=== PATIENT | male | born 1960 | race Caucasian/White ===

== ENCOUNTER 2018-07-24 12:39 | Inpatient (IN) ==
[2018-07-24 13:45] LABS: Baso # (Auto) 0.1 th/mm3 (0.0-0.2); Baso % (Auto) 0.4 % (0.0-2.0); Eos # (Auto) 0.1 th/mm3 (0.0-0.4); Eos % (Auto) 0.3 % (0.0-4.0); Hematocrit 46.1 % (39.0-51.0); Hemoglobin 15.2 gm/dL (13.0-17.0); Lymph # (Auto) 1.8 th/mm3 (1.0-4.8); Lymph % (Auto) 8.5 % (9.0-44.0); Mean Corpuscular Hemoglobin 26.3 pg (27.0-34.0); Mean Corpuscular Volume 79.9 fL (80.0-100.0); Mean Platelet Volume 7.8 fL (7.0-11.0); Mono # (Auto) 1.8 th/mm3 (0.0-0.9); Mono % (Auto) 8.5 % (0.0-8.0); Neut # (Auto) 17.7 th/mm3 (1.8-7.7); Neut % (Auto) 82.3 % (16.0-70.0); Platelet Count 299 th/mm3 (150-450); Red Blood Count 5.77 mil/mm3 (4.50-5.90); Red Cell Distribution Width 16.8 % (11.6-17.2); White Blood Count 21.5 th/mm3 (4.0-11.0)
[2018-07-24 14:04] LABS: Alanine Aminotransferase 21 U/L (12-78); Alkaline Phosphatase 101 U/L (45-117); Anion Gap 7 meq/L (5-15); Aspartate Aminotransferase 12 U/L (15-37); Blood Urea Nitrogen 25 mg/dL (7-18); Calcium 10.1 mg/dL (8.5-10.1); Carbon Dioxide 26.2 meq/L (21.0-32.0); Chloride 99 meq/L (98-107); Glomerular Filtration Rate 52 mL/min (>89); Glucose,Random 153 mg/dL (74-106); Lipase 34 U/L (73-393); Potassium 4.5 meq/L (3.5-5.1); Sodium 132 meq/L (136-145); Total Protein 8.6 g/dL (6.4-8.2)
[2018-07-24] MEDS ORDERED: Piperacil/Tazo 3.375 GM Premix 50 ML IV.SIG ONE (14:13)
[2018-07-24] MEDS ORDERED: Sod Chloride 0.9% Inj 1,000 ML IV.SIG SCH ×2 (14:15)
[2018-07-24] MEDS ORDERED: Morphine Inj 4 MG/ML Vial IV.PUSH ONE (14:16)
--- NOTE | 2018-07-24 14:37 | ED ---
HPI General Chief Complaint: Abdominal Pain Stated Complaint: Chest/Oxygen Complaint Doctor Sent Time Seen by Provider: 07/24/18 14:02 Source: patient Mode of arrival: ambulatory Limitations: no limitations History of Present Illness HPI narrative: 57-year-old male with a history of anxiety, hypertension presents to the emergency department evaluation of worsening right upper quadrant pain. Patient says that he presented here to [place] 2 days ago for abdominal pain but says that the pain is persistent. He says the pain has been persistent for a couple of days. Today, he went to Dr. Jones, a primary care physician, who recommended he come in today for evaluation. Patient points to the right upper quadrant and states that the pain is 10/10, intermittent, worse with moving and eating. Patient says he has had a decreased appetite because he does not want to have pain. He denies fevers or chills. Says he has nausea with occasional vomiting. He denies history of cardiac, pulmonary issues. Patient does not use blood thinners and does not take aspirin daily. Related Data Home Medications Medication Instructions Recorded Confirmed alprazolam [Xanax] 2 mg PO BID 07/24/18 07/24/18 quetiapine [Seroquel] 200 mg PO HS 07/24/18 07/25/18 lamotrigine [Lamictal] 100 mg PO DAILY 07/25/18 07/25/18 lisinopril 20 mg PO DAILY 07/25/18 07/25/18 Allergies Allergy/AdvReac Type Severity Reaction Status Date / Time No Known Allergies Allergy Verified 07/22/18 05:01 Review of Systems ROS: all other systems reviewed are negative [facility] Medical History Medical History Anxiety (Acute) Hypertension (Acute) Social History Social History Substance History: Past History Second Hand Smoke Exposure: Yes Smoking Status: Current every day smoker Tobacco Type: Cigarettes How Often Do You Have a Drink Containing Alcohol: Never Recent Travel in [facility] within the Last 8 Weeks: No Recent Out of Country Travel within the Last 8 Weeks: No Immunization History Tetanus Immunization: Unsure Exam Narrative Exam Narrative: GENERAL: Well-developed, well-nourished in mild distress, anxious SKIN: Focused skin assessment warm/dry. HEAD: Atraumatic. Normocephalic. EYES: Pupils equal and round. No scleral icterus. No injection or drainage. ENT: No nasal bleeding or discharge. Mucous membranes pink and moist. NECK: Trachea midline. No JVD. No lymphadenopathy CARDIOVASCULAR: Regular rate and rhythm. No murmur appreciated. RESPIRATORY: No accessory muscle use. Clear to auscultation. Breath sounds equal bilaterally. GASTROINTESTINAL: Abdomen protuberant, soft, nondistended, tenderness to palpation of the right upper quadrant without rebound tenderness, no psoas sign. MUSCULOSKELETAL: No obvious deformities. No clubbing. No cyanosis. No edema. No tenderness palpation of the calves NEUROLOGICAL: Awake and alert. No obvious cranial nerve deficits. Motor grossly within normal limits. Normal speech. PSYCHIATRIC: Appropriate mood and affect; insight and judgment normal. Course Initial Documented Vital Signs Temperature 99.7 F H 07/24/18 12:50 Pulse Rate 124 H 07/24/18 12:50 Respiratory Rate 20 07/24/18 12:50 Blood Pressure 127/74 07/24/18 12:50 Pulse Oximetry 95 07/24/18 12:50 Last Documented Vital Signs Temperature 98.6 F 07/25/18 08:00 Pulse Rate 94 H 07/25/18 08:00 Respiratory Rate 18 07/25/18 08:00 Blood Pressure 130/79 07/25/18 04:00 Pulse Oximetry 94 L 07/25/18 04:00 Medical Decision Making BLANCA Attestation BLANCA supervised visit: Yes Attestation: I, Dr. dao, have reviewed the advance practice practitioner's documentation and am in agreement, met with the patient face to face, made the diagnosis, and the medical decision making was done by me. *My assessment and Findings: 57 y/o male presents with 2-day history of severe abdominal pain with total 1 week course. Has been n.p.o. since last night as he has been unable to eat. He was sent by his primary care physician who I personally talked with. Workup reveals acute cholecystitis. Patient has significant leukocytosis and has mild tachycardia here. Lactate and blood pressure are normal. He was given Zosyn on his arrival into the room as well as IV fluid hydration. I personally discussed the case with Dr. Fernández and he will be admitted to medicine with his consultation. Patient also was updated. MDM Narrative Medical decision making narrative: 57-year-old male presents to the emergency department for evaluation of right upper quadrant pain that is been persistent for a couple of days. He has associated nausea with occasional vomiting. Says his pain is worse with eating and movement. Vital signs demonstrate HR 116, regular. Temp 99.7, SaO2 95% on room air. Morphine for pain. Zosyn and 2L NS IVF. Labs are notable for WBC 21.5, H/H 15.2/46.1, BUN/Cr 25/1.39, Lactic 1.0, T Bili 1.7 US consistent with cholecystitis. My attending discussed this case with Dr. Fernández regarding this patient. Remain NPO, LFTs in the morning. Admitted to Dr. Seay. Spoke with Dr. Garcia regarding this patient as well who is aware of the plan. Medical Screen Exam Complete: Yes Emergency Medical Condition: Yes Differential Diagnosis Differential Diagnosis: Cholecystitis, cholelithiasis, bowel obstruction, colitis, diverticulitis Lab Data Result diagrams: 07/25/18 06:29 07/25/18 06:29 Lab Results 07/24/18 07/24/18 07/24/18 Range/Units 13:21 13:21 14:20 WBC 21.5 H (4.0-11.0) th/mm3 RBC 5.77 (4.50-5.90) mil/mm3 Hgb 15.2 (13.0-17.0) gm/dL Hct 46.1 (39.0-51.0) % MCV 79.9 L (80.0-100.0) fL MCH 26.3 L (27.0-34.0) pg MCHC 33.0 (32.0-36.0) % RDW 16.8 (11.6-17.2) % Plt Count 299 (150-450) th/mm3 MPV 7.8 (7.0-11.0) fL Neut % (Auto) 82.3 H (16.0-70.0) % Lymph % (Auto) 8.5 L (9.0-44.0) % [place] % (Auto) 8.5 H (0.0-8.0) % Eos % (Auto) 0.3 (0.0-4.0) % Baso % (Auto) 0.4 (0.0-2.0) % Neut # (Auto) 17.7 H (1.8-7.7) th/mm3 Lymph # (Auto) 1.8 (1.0-4.8) th/mm3 [place] # (Auto) 1.8 H (0.0-0.9) th/mm3 Eos # (Auto) 0.1 (0.0-0.4) th/mm3 Baso # (Auto) 0.1 (0.0-0.2) th/mm3 WBC Differential . Differential Comment Auto diff final PT (9.8-11.6) sec INR Ratio APTT (24.3-30.1) sec Sodium 132 L (136-145) meq/L Potassium 4.5 (3.5-5.1) meq/L Chloride 99 (98-107) meq/L Carbon Dioxide 26.2 (21.0-32.0) meq/L Anion Gap 7 (5-15) meq/L BUN 25 H (7-18) mg/dL Creatinine 1.39 H (0.60-1.30) mg/dL Estimated GFR 52 L (>89) mL/min Random Glucose 153 H (74-106) mg/dL Lactic Acid 1.0 (0.4-2.0) mmol/L Calcium 10.1 (8.5-10.1) mg/dL Total Bilirubin 1.7 H (0.2-1.0) mg/dL AST 12 L (15-37) U/L ALT 21 (12-78) U/L Alkaline Phosphatase 101 (45-117) U/L Total Protein 8.6 H (6.4-8.2) g/dL Albumin 3.0 L (3.4-5.0) g/dL Lipase 34 L (73-393) U/L 07/24/18 07/25/18 07/25/18 Range/Units 14:20 06:29 06:29 WBC 15.8 H (4.0-11.0) th/mm3 RBC 5.11 (4.50-5.90) mil/mm3 Hgb 13.7 (13.0-17.0) gm/dL Hct 41.0 (39.0-51.0) % MCV 80.2 (80.0-100.0) fL MCH 26.8 L (27.0-34.0) pg MCHC 33.4 (32.0-36.0) % RDW 16.1 (11.6-17.2) % Plt Count 271 (150-450) th/mm3 MPV 7.5 (7.0-11.0) fL Neut % (Auto) 78.3 H (16.0-70.0) % Lymph % (Auto) 11.9 (9.0-44.0) % [place] % (Auto) 7.5 (0.0-8.0) % Eos % (Auto) 1.9 (0.0-4.0) % Baso % (Auto) 0.4 (0.0-2.0) % Neut # (Auto) 12.4 H (1.8-7.7) th/mm3 Lymph # (Auto) 1.9 (1.0-4.8) th/mm3 [place] # (Auto) 1.2 H (0.0-0.9) th/mm3 Eos # (Auto) 0.3 (0.0-0.4) th/mm3 Baso # (Auto) 0.1 (0.0-0.2) th/mm3 WBC Differential . Differential Comment Auto diff final PT 11.1 (9.8-11.6) sec INR 1.1 Ratio APTT 31.3 H (24.3-30.1) sec Sodium 135 L (136-145) meq/L Potassium 4.2 (3.5-5.1) meq/L Chloride 99 (98-107) meq/L Carbon Dioxide 30.9 (21.0-32.0) meq/L Anion Gap 5 (5-15) meq/L BUN 17 (7-18) mg/dL Creatinine 1.03 (0.60-1.30) mg/dL Estimated GFR 74 L (>89) mL/min Random Glucose 113 H (74-106) mg/dL Lactic Acid (0.4-2.0) mmol/L Calcium 9.6 (8.5-10.1) mg/dL Total Bilirubin 1.5 H (0.2-1.0) mg/dL AST 14 L (15-37) U/L ALT 21 (12-78) U/L Alkaline Phosphatase 102 (45-117) U/L Total Protein 7.8 D (6.4-8.2) g/dL Albumin 2.5 L (3.4-5.0) g/dL Lipase (73-393) U/L Imaging Data Radiologist's impression: Gallbladder Ultrasound 07/24/18 14:12 CONCLUSION: 1. There is extensive gallbladder wall thickening with pericholecystic fluid and multiple gallstones. There was a positive Peters's sign. Exam would suggest acute cholecystitis. 2. Mildly dilated common bile duct at 8 mm. Discharge Plan Discharge Disposition Patient Disposition: 30 Still Patient Discharge Condition Condition: Stable Discharge Details Diagnosis: Acute cholecystitis Physicians Team ED Provider: Crista Dao ED Midlevel Provider: Stephanie Goodwin Primary Care Provider: UNKNOWN, Attending Provider: Bucky Jimenez Other Providers: Bucky Fernández ; Jhon,[employer] Status ED Status: Left Department Discharge Information Discharge Date/Time: 07/24/18 18:18
[2018-07-24 14:56] LABS: Activated Partial Thrombo Time 31.3 sec (24.3-30.1); INR 1.1 Ratio; Prothrombin Time 11.1 sec (9.8-11.6)
--- NOTE | 2018-07-24 16:03 | US ---
EXAM DATE: 07/24/2018 3:56 PM EDT AGE/SEX: 57 years / Male INDICATIONS: Right upper quadrant pain. CLINICAL DATA: This is the patient's initial encounter. Patient reports that signs and symptoms have been present for 3 days and indicates a pain score of 10/10. MEDICAL/SURGICAL HISTORY: Hypertension. Anxiety. Appendectomy. Shoulder surgery. COMPARISON: [facility] [place]EL[place]/O CONTRAST, 07/22/2018. . MEASUREMENTS: Liver:__ 23.1 cm. Common Bile Duct:__ 10mm. FINDINGS: Liver: Increased echotexture without focal lesion or ductal dilation. Portal Vein: Hepatopedal flow seen in portal vein. Common Duct: The common bile duct is mildly dilated at 8 mm. Gallbladder: The examination demonstrates diffuse gallbladder wall thickening with multiple gallston es and pericholecystic fluid. There is a focal area of increased echogenicity with ringdown artifact suggesting a possible small amount of air within the gallbladder wall. The examination is concerning for acute cholecystitis. Pancreas: The visualized portions are within normal limits Right Kidney: Normal echotexture and cortical thickness. No mass or hydronephrosis. Other: None. CONCLUSION: 1. There is extensive gallbladder wall thickening with pericholecystic fluid and multiple gallstones . There was a positive Peters's sign. Exam would suggest acute cholecystitis. 2. Mildly dilated common bile duct at 8 mm. Electronically signed by: Michael Coates MD 07/24/2018 4:02 PM EDT
[2018-07-24] MEDS ORDERED: Bisacodyl 10 MG Supp RECTAL PRN (16:44)
[2018-07-24] MEDS ORDERED: Acetaminophen 325 MG Tablet PO PRN (16:44)
--- NOTE | 2018-07-24 17:05 | P.HP ---
History of Present Illness Service: Hospitalist Primary Care Physician: UNKNOWN Chief Complaint: RUQ abdominal pain. History of Present Illness: Mr. Kim is a pleasant 57-year-old male with a history of hypertension, tobacco use who presents to the emergency department due to worsening right upper quadrant abdominal pain. Patient was evaluated in the emergency department 2 days prior to this admission and was subsequently discharged from the ED. He went to his primary care physician who recommended him to come back to the emergency department due to worsening abdominal pain. Patient also had associated nausea and vomiting. He also reports subjective fever and chills. Patient denies any chest pain, shortness of breath. No changes in bowel or bladder habits. Gallbladder ultrasound indicated extensive gallbladder wall thickening with pericholecystic fluid and multiple gallstones. Common bile duct was mildly dilated to 8 mm. WBC 20 1.5K, BUN 25 creatinine 1.39, lactic acid 1.0, total bilirubin 1.7. AST 12 and ALT 21. Alk phos 101. Past medical history: Hypertension Past surgical history: Appendectomy, broken leg and arm surgery. Social history: Patient smokes 1 pack a day, denies using alcohol or illicit drugs. Family history: Father had gallbladder disease as well. Inpatient Certification: I certify that the inpatient services were ordered in accordance with Medicare regulations governing the order. This includes certification that hospital inpatient services are reasonable and necessary and in the case of services not specified as inpatient-only under 42 CFR 419.22(n), that they are appropriately provided as inpatient services in accordance to with the 2-midnight benchmark under 43 CFR 412.3(e) Estimated Total Length of Stay (Days): 3 Plans for Post Hospital Care: Home Review of Systems All other systems reviewed negative except as stated in HPI PMFSH - History History Provided By: Patient - Medical History Medical History: Medical History (Last Reviewed 07/24/18 @ 14:41 by JIAN Ley) Anxiety Hypertension - Surgical History Surgical History: Surgical History (Last Reviewed 07/24/18 @ 14:07 by Dariana Vega) H/O shoulder surgery History of appendectomy - Tobacco History Second Hand Smoke Exposure: Yes Tobacco Use In Past 30 Days: Yes Smoking Status: Current every day smoker Tobacco Type: Cigarettes - Alcohol History How Often Do You Have a Drink Containing Alcohol: Never - Substance Use History Substance History: No History of Abuse - Travel History Recent Travel in the [place] Within the Last 8 Weeks: No Recent Travel Out of the Country Within the Last 8 Weeks: No - Immunization History Tetanus Immunization: Unsure Medications and Allergies Active Medications: Active Medications Acetaminophen (Tylenol) 650 mg PO Q4H PRN PRN Reason: Headache, fever, pain 1-4 Al Hydroxide/Mg Hydroxide (Milk Of Magnesia Liq) 30 ml PO Q12H PRN PRN Reason: Mild Constipation Bisacodyl (Dulcolax Supp) 10 mg RECTAL DAILY PRN PRN Reason: SEVERE CONSITIPATION Sodium Chloride (Ns Inj) 1,000 mls @ 0 mls/hr IV.SIG BOLUS ENOC Last Infusion: 07/24/18 15:31 Dose: Infused Sodium Chloride (Ns Inj) 1,000 mls @ 0 mls/hr IV.SIG BOLUS ENOC Last Admin: 07/24/18 16:04 Dose: 1,000 mls/hr Sodium Chloride (Ns Inj) 1,000 mls @ 100 mls/hr IV.CONT .Q10H ENOC Piperacillin/Tazobactam/Dextrose (Zosyn 3.375 Gm Premix) 50 mls @ 100 mls/hr IV.SIG Q6H ENOC Lactulose (Lactulose Liq) 30 ml PO DAILY PRN PRN Reason: SEVERE CONSITIPATION Ondansetron HCl (Zofran Inj) 4 mg IV.PUSH Q6H PRN PRN Reason: NAUSEA OR VOMITING Sennosides (Senokot) 17.2 mg PO Q12H PRN PRN Reason: Moderate Constipation Allergies Allergy/AdvReac Type Severity Reaction Status Date / Time No Known Allergies Allergy Verified 07/22/18 05:01 Home Medications Medication Instructions Recorded Confirmed Type Unable to Obtain Home Meds 07/22/18 07/24/18 History Exam Vital signs: Vital Signs 07/24/18 12:50 07/24/18 14:06 Temperature 99.7 F H Pulse Rate 124 H 116 H Respiratory Rate 20 20 Blood Pressure 127/74 126/76 Pulse Oximetry 95 95 Intake & Output 07/23/18 07/24/18 07/24/18 18:59 06:59 18:59 Intake Total 1050 / 1050 Balance 1050 / 1050 Weight 113.398 kg Intake: IV 1050 / 1050 Zosyn 3.375 GM Premix 50 ML @ 50 / 50 100 mls/hr IV.SIG ONCE ONE Rx#: [id number] NS Inj 1,000 ML @ Wide Open IV. 1000 / 1000 SIG BOLUS ENOC Rx#:[id number] Narrative: GENERAL: This is a well-nourished, well-developed patient, in no apparent distress. SKIN: No rashes, ecchymoses or lesions. Warm and dry. HEAD: Atraumatic. Normocephalic. No temporal or scalp tenderness. EYES: Pupils equal round and reactive. No injection or drainage. Nonicteric sclera. ENT: Nose without bleeding, purulent drainage or septal hematoma. Airway patent. NECK: Trachea midline. No lymphadenopathy. Supple, nontender, no meningeal signs. CARDIOVASCULAR: Regular rhythm, tachycardic without murmurs, gallops, or rubs. No JVD. RESPIRATORY: Clear to auscultation. Breath sounds equal bilaterally. No wheezes , rales, or rhonchi. GASTROINTESTINAL: Abdomen soft, tender to palpation in the right upper quadrant area. MUSCULOSKELETAL: Extremities without clubbing, cyanosis, or edema. NEUROLOGICAL: Awake and alert. Cranial nerves II through XII intact. No focal neurological deficits. Normal speech. Results - Labs CBC & Chem 7: 07/24/18 13:21 07/24/18 13:21 Labs: Laboratory Results - last 24 hr 07/24/18 07/24/18 07/24/18 13:21 13:21 14:20 WBC 21.5 H RBC 5.77 Hgb 15.2 Hct 46.1 MCV 79.9 L MCH 26.3 L MCHC 33.0 RDW 16.8 Plt Count 299 MPV 7.8 Neut % (Auto) 82.3 H Lymph % (Auto) 8.5 L [place] % (Auto) 8.5 H Eos % (Auto) 0.3 Baso % (Auto) 0.4 Neut # (Auto) 17.7 H Lymph # (Auto) 1.8 [place] # (Auto) 1.8 H Eos # (Auto) 0.1 Baso # (Auto) 0.1 WBC Differential . Differential Comment Auto diff final PT INR APTT Sodium 132 L Potassium 4.5 Chloride 99 Carbon Dioxide 26.2 Anion Gap 7 BUN 25 H Creatinine 1.39 H Estimated GFR 52 L Random Glucose 153 H Lactic Acid 1.0 Calcium 10.1 Total Bilirubin 1.7 H AST 12 L ALT 21 Alkaline Phosphatase 101 Total Protein 8.6 H Albumin 3.0 L Lipase 34 L 07/24/18 14:20 WBC RBC Hgb Hct MCV MCH MCHC RDW Plt Count MPV Neut % (Auto) Lymph % (Auto) [place] % (Auto) Eos % (Auto) Baso % (Auto) Neut # (Auto) Lymph # (Auto) [place] # (Auto) Eos # (Auto) Baso # (Auto) WBC Differential Differential Comment PT 11.1 INR 1.1 APTT 31.3 H Sodium Potassium Chloride Carbon Dioxide Anion Gap BUN Creatinine Estimated GFR Random Glucose Lactic Acid Calcium Total Bilirubin AST ALT Alkaline Phosphatase Total Protein Albumin Lipase - Imaging Impressions Gallbladder Ultrasound 07/24/18 14:12 CONCLUSION: 1. There is extensive gallbladder wall thickening with pericholecystic fluid and multiple gallstones. There was a positive Peters's sign. Exam would suggest acute cholecystitis. 2. Mildly dilated common bile duct at 8 mm. Caprini VTE Risk Assessment Caprini VTE Risk Assessment: No/Low Risk (score <= 1) Caprini Risk Assessment Model: Point Value = 1 Point Value = 2 Point Value = 3 Point Value = 5 Age 41-60 Minor surgery BMI > 25 kg/m2 Swollen legs Varicose veins or History of unexplained or recurrent spontaneous Oral contraceptives or hormone replacement Sepsis (< 1 month) Serious lung disease, including pneumonia (< 1 month) Abnormal pulmonary function Acute myocardial infarction Congestive heart failure (< 1 month) History of inflammatory bowel disease Medical patient at bed rest Age 61-74 Arthroscopic surgery Major open surgery (> 45 min) Laparoscopic surgery (> 45 min) Malignancy Confined to bed (> 72 hours) Immobilizing plaster cast Central venous access Age >= 75 History of VTE Family history of VTE Factor V Leiden Prothrombin [id number] Lupus anticoagulant Anticardiolipin antibodies Elevated serum homocysteine Heparin-induced thrombocytopenia Other congenital or acquired thrombophilia Stroke (< 1 month) Elective arthroplasty Hip, pelvis, or leg fracture Acute spinal cord injury (< 1 month) Prophylaxis Regimen: Total Risk Factor Score Risk Level Prophylaxis Regimen 0-1 Low Early ambulation 2 Moderate Order ONE of the following: *Sequential Compression Device (SCD) *Heparin 5000 units SQ BID 3-4 Higher Order ONE of the following medications: *Heparin 5000 units SQ TID *Enoxaparin/Lovenox 40 mg SQ daily (WT < 150 kg, CrCl > 30 mL/min) *Enoxaparin/Lovenox 30 mg SQ daily (WT < 150 kg, CrCl > 10-29 mL/min) *Enoxaparin/Lovenox 30 mg SQ BID (WT < 150 kg, CrCl > 30 mL/min) AND/OR *Sequential Compression Device (SCD) 5 or more Highest Order ONE of the following medications: *Heparin 5000 units SQ TID (Preferred with Epidurals) *Enoxaparin/Lovenox 40 mg SQ daily (WT < 150 kg, CrCl > 30 mL/min) *Enoxaparin/Lovenox 30 mg SQ daily (WT < 150 kg, CrCl > 10-29 mL/min) *Enoxaparin/Lovenox 30 mg SQ BID (WT < 150 kg, CrCl > 30 mL/min) AND *Sequential Compression Device (SCD) Assessment and Plan - Plan Mr. Kim is a pleasant 57-year-old male with a history of hypertension who presents to the emergency department due to worsening right upper quadrant abdominal pain, associated nausea vomiting as well as subjective fever and chills. Gallbladder ultrasound indicates cholecystitis. Sepsis(WBC 20 1.5K, temperature 99.7F, pulse 124, respiration 20, suspected infection gallbladder) Acute cholecystitis, severe -We will start patient on Zosyn 3.375 g every 6 hours -I discussed with Dr. Fernández (General surgery), appreciate his input. -Acetaminophen, morphine IV for pain control. -Clear liquid diet for now, n.p.o. midnight. -Continue normal saline at 100 cc/h. Elevated bilirubin Mild dilation of common bile duct -We will repeat CBC and CMP in the morning. -If bilirubin increases, will consider MRCP and a GI consult. Hypertension -patient is currently normotensive. Full code. SCDs. Discussed with General surgery (Dr. Fernández).
--- NOTE | 2018-07-24 17:58 | P.CON ---
History of Present Illness Consult date: 07/24/18 Reason for Consult: Acute cholecystitis Primary Care Provider: UNKNOWN History of Present Illness: Patient is a 57-year-old male who was [facility] ago for abdominal pain. He was diagnosed with gallstones and was feeling better and was sent home. He developed excruciating pain today and was seen at his primary care office and was noted to be diaphoretic. He was worked up in the emergency department and was found to have dilated common bile duct, elevated WBCs, and gallbladder wall thickening with gallstones. [facility] - History History Provided By: Patient - Medical History Medical History: Medical History (Last Reviewed 07/24/18 @ 14:41 by JIAN Ley) Anxiety Hypertension - Surgical History Surgical History: Surgical History (Last Reviewed 07/24/18 @ 14:07 by Dariana Vega) H/O shoulder surgery History of appendectomy - Tobacco History Second Hand Smoke Exposure: Yes Tobacco Use In Past 30 Days: Yes Smoking Status: Current every day smoker Tobacco Type: Cigarettes - Alcohol History How Often Do You Have a Drink Containing Alcohol: Never - Substance Use History Substance History: No History of Abuse - Travel History Recent Travel in the [place] Within the Last 8 Weeks: No Recent Travel Out of the Country Within the Last 8 Weeks: No - Immunization History Tetanus Immunization: Unsure Medications and Allergies Active Medications: Active Medications Acetaminophen (Tylenol) 650 mg PO Q4H PRN PRN Reason: Headache, fever, pain 1-4 Al Hydroxide/Mg Hydroxide (Milk Of Magnesia Liq) 30 ml PO Q12H PRN PRN Reason: Mild Constipation Bisacodyl (Dulcolax Supp) 10 mg RECTAL DAILY PRN PRN Reason: SEVERE CONSITIPATION Sodium Chloride (Ns Inj) 1,000 mls @ 0 mls/hr IV.SIG BOLUS ENOC Last Infusion: 07/24/18 15:31 Dose: Infused Sodium Chloride (Ns Inj) 1,000 mls @ 0 mls/hr IV.SIG BOLUS ENOC Last Infusion: 07/24/18 17:04 Dose: Infused Sodium Chloride (Ns Inj) 1,000 mls @ 100 mls/hr IV.CONT .Q10H ENOC Piperacillin/Tazobactam/Dextrose (Zosyn 3.375 Gm Premix) 50 mls @ 100 mls/hr IV.SIG Q6H ENOC Lactulose (Lactulose Liq) 30 ml PO DAILY PRN PRN Reason: SEVERE CONSITIPATION Ondansetron HCl (Zofran Inj) 4 mg IV.PUSH Q6H PRN PRN Reason: NAUSEA OR VOMITING Sennosides (Senokot) 17.2 mg PO Q12H PRN PRN Reason: Moderate Constipation Allergies Allergy/AdvReac Type Severity Reaction Status Date / Time No Known Allergies Allergy Verified 07/22/18 05:01 Home Medications Medication Instructions Recorded Confirmed Type Unable to Obtain Home Meds 07/22/18 07/24/18 History Physical Exam Vital signs: Vital Signs 07/24/18 12:50 07/24/18 14:06 Temperature 99.7 F H Pulse Rate 124 H 116 H Respiratory Rate 20 20 Blood Pressure 127/74 126/76 Pulse Oximetry 95 95 Intake & Output 07/23/18 07/24/18 07/24/18 18:59 06:59 18:59 Intake Total 2049 Balance 2049 Weight 113.398 kg Intake: IV 2049 Zosyn 3.375 GM Premix 50 ML @ 50 / 50 100 mls/hr IV.SIG ONCE ONE Rx#: [id number] NS Inj 1,000 ML @ Wide Open IV. 1999 SIG BOLUS ENOC Rx#:[id number] - Constitutional no acute distress - Routine HEENT Exam Head: Present: normocephalic, atraumatic - Routine Respiratory Exam Present: CTA bilaterally - Routine Cardiovascular Exam Present: RRR - Routine Abdominal Exam Present: soft, tenderness (Right upper quadrant and epigastrium) - Routine Skin Exam Present: intact Comments: No jaundice - Routine Neurological Exam Present: alert, oriented X3, CN II-XII intact Assessment and Plan - Assessment (1) Hypertension Code(s): I10 - Essential (primary) hypertension Status: Acute (2) Anxiety Code(s): F41.9 - Anxiety disorder, unspecified Status: Acute (3) Acute cholecystitis Code(s): K81.0 - Acute cholecystitis Status: Acute Plan: We will recheck liver function tests in the early a.m.; if bilirubin is down, will proceed with cholecystectomy. If this is higher and alkaline phosphatase is higher, would consider MRCP as his common duct is dilated at 8 mm. This may simply be due to recent passage of a gallstone, but it may also indicate common duct stone. I have discussed surgery with the patient and risks including but not limited to bleeding, infection, bile duct injury, bowel injury, possible need for postoperative ERCP, drainage, or reoperation. I discussed remedies consequences alternatives and convalescence; he vocalizes understanding and agrees to proceed. - Plan Discussed Condition With: Patient Dr. Garcia - Attending Attestation I attest that I had a [id number] encounter with the patient on the same day, and personally performed and documented my assessment and findings in the medical record. The following services were provided during this hospital visit: Chart data review, vital sign assessments/reviewing monitor data Review of consultation notes if present Medication orders/review and/or management Ordering and/or reviewing lab tests Ordering and/or interpreting/reviewing x-rays and/or diagnostic studies Care of the patient and discussion of the patient with the care team Documentation time To help prompt me to consider important information that might be impacting today's encounter and assessment, Information from prior notes written by myself or my colleagues may have been "brought forward/copy and pasted" into today's note.
[2018-07-24] MEDS: Sod Chloride 0.9% Inj 1,000 ML IV.CONT SCH (18:27)
[2018-07-24] MEDS: Morphine Inj 4 MG/ML Vial IV.PUSH PRN (18:36)
[2018-07-24] MEDS: Piperacil/Tazo 3.375 GM Premix 50 ML IV.SIG SCH (20:40)
[2018-07-25] MEDS: Piperacil/Tazo 3.375 GM Premix 50 ML IV.SIG SCH ×4 (02:00→20:54)
[2018-07-25] MEDS: Sod Chloride 0.9% Inj 1,000 ML IV.CONT SCH ×2 (03:40→14:21)
[2018-07-25 07:29] LABS: Baso # (Auto) 0.1 th/mm3 (0.0-0.2); Baso % (Auto) 0.4 % (0.0-2.0); Eos # (Auto) 0.3 th/mm3 (0.0-0.4); Eos % (Auto) 1.9 % (0.0-4.0); Hemoglobin 13.7 gm/dL (13.0-17.0); Lymph # (Auto) 1.9 th/mm3 (1.0-4.8); Lymph % (Auto) 11.9 % (9.0-44.0); Mean Corpuscular HGB Conc 33.4 % (32.0-36.0); Mean Corpuscular Hemoglobin 26.8 pg (27.0-34.0); Mean Corpuscular Volume 80.2 fL (80.0-100.0); Mean Platelet Volume 7.5 fL (7.0-11.0); Mono # (Auto) 1.2 th/mm3 (0.0-0.9); Mono % (Auto) 7.5 % (0.0-8.0); Neut # (Auto) 12.4 th/mm3 (1.8-7.7); Neut % (Auto) 78.3 % (16.0-70.0); Platelet Count 271 th/mm3 (150-450); Red Blood Count 5.11 mil/mm3 (4.50-5.90); Red Cell Distribution Width 16.1 % (11.6-17.2); White Blood Count 15.8 th/mm3 (4.0-11.0)
[2018-07-25 07:45] LABS: Alanine Aminotransferase 21 U/L (12-78); Albumin 2.5 g/dL (3.4-5.0); Anion Gap 5 meq/L (5-15); Aspartate Aminotransferase 14 U/L (15-37); Blood Urea Nitrogen 17 mg/dL (7-18); Calcium 9.6 mg/dL (8.5-10.1); Carbon Dioxide 30.9 meq/L (21.0-32.0); Chloride 99 meq/L (98-107); Glomerular Filtration Rate 74 mL/min (>89); Glucose,Random 113 mg/dL (74-106); Potassium 4.2 meq/L (3.5-5.1); Sodium 135 meq/L (136-145)
[2018-07-25 07:47] LABS: Alkaline Phosphatase 102 U/L (45-117); Total Protein 7.8 g/dL (6.4-8.2)
[2018-07-25] MEDS: Morphine Inj 4 MG/ML Vial IV.PUSH PRN ×3 (09:20→20:51)
--- NOTE | 2018-07-25 11:33 | P.PNIM ---
Subjective Interval history: The patient was complaining of abdominal pain that was radiating everywhere around his abdomen. He said the pain was a 10 out of 10 in severity. He said the morphine has been helping. He is tolerating a clear liquid diet. He said that he was having surgery tomorrow. Physical Exam Vital signs: Vital Signs 07/24/18 12:50 07/24/18 14:06 07/24/18 18:45 Temperature 99.7 F H 99.2 F Pulse Rate 124 H 116 H 107 H Respiratory Rate 20 20 16 Blood Pressure 127/74 126/76 135/87 Pulse Oximetry 95 95 91 L 07/24/18 20:00 07/25/18 00:00 07/25/18 04:00 Temperature 99.9 F H 98.7 F 98 F Pulse Rate 101 H 98 H 93 H Respiratory Rate 18 18 18 Blood Pressure 165/93 H 149/87 H 130/79 Pulse Oximetry 93 L 93 L 94 L 07/25/18 08:00 Temperature 98.6 F Pulse Rate 94 H Respiratory Rate 18 Blood Pressure Pulse Oximetry Intake & Output 07/24/18 07/25/18 07/25/18 18:59 06:59 18:59 Intake Total 2170 / 2170 1100 / 1100 50 / 50 Balance 2170 / 2170 1100 / 1100 50 / 50 Weight 113.398 kg 113.3 kg Intake: IV 0 / 0 1100 / 1100 50 / 50 NS Inj 1,000 ML @ 100 mls/hr IV 1000 / 1000 .CONT .Q10H ENOC Rx#:[id number] Zosyn 3.375 GM Premix 50 ML @ 50 / 50 100 / 100 50 / 50 100 mls/hr IV.SIG Q6H ENOC Rx#: [id number] NS Inj 1,000 ML @ Wide Open IV. 1999 SIG BOLUS ENOC Rx#:[id number] Oral 120 / 120 0 / 0 Other: # Voids 3 Date of Last Bowel Movement 07/20/18 07/20/18 07/20/18 Narrative: GENERAL: This is a well-nourished, well-developed patient, in no apparent distress. SKIN: No rashes, ecchymoses or lesions. Warm and dry. HEAD: Atraumatic. Normocephalic. No temporal or scalp tenderness. EYES: Pupils equal round and reactive. No injection or drainage. Nonicteric sclera. ENT: Nose without bleeding, purulent drainage or septal hematoma. Airway patent. NECK: Trachea midline. No lymphadenopathy. Supple, nontender, no meningeal signs. CARDIOVASCULAR: Regular rhythm, tachycardic without murmurs, gallops, or rubs. No JVD. RESPIRATORY: Clear to auscultation. Breath sounds equal bilaterally. No wheezes , rales, or rhonchi. GASTROINTESTINAL: Abdomen soft, tender to palpation in the right upper quadrant area. MUSCULOSKELETAL: Extremities without clubbing, cyanosis, or edema. NEUROLOGICAL: Awake and alert. Cranial nerves II through XII intact. No focal neurological deficits. Normal speech. Results - Labs CBC & Chem 7: 07/25/18 06:29 07/25/18 06:29 Laboratory Results - last 24 hr 07/24/18 07/24/18 07/24/18 13:21 13:21 14:20 WBC 21.5 H RBC 5.77 Hgb 15.2 Hct 46.1 MCV 79.9 L MCH 26.3 L MCHC 33.0 RDW 16.8 Plt Count 299 MPV 7.8 Neut % (Auto) 82.3 H Lymph % (Auto) 8.5 L [place] % (Auto) 8.5 H Eos % (Auto) 0.3 Baso % (Auto) 0.4 Neut # (Auto) 17.7 H Lymph # (Auto) 1.8 [place] # (Auto) 1.8 H Eos # (Auto) 0.1 Baso # (Auto) 0.1 WBC Differential . Differential Comment Auto diff final PT INR APTT Sodium 132 L Potassium 4.5 Chloride 99 Carbon Dioxide 26.2 Anion Gap 7 BUN 25 H Creatinine 1.39 H Estimated GFR 52 L Random Glucose 153 H Lactic Acid 1.0 Calcium 10.1 Total Bilirubin 1.7 H AST 12 L ALT 21 Alkaline Phosphatase 101 Total Protein 8.6 H Albumin 3.0 L Lipase 34 L 07/24/18 07/25/18 07/25/18 14:20 06:29 06:29 WBC 15.8 H RBC 5.11 Hgb 13.7 Hct 41.0 MCV 80.2 MCH 26.8 L MCHC 33.4 RDW 16.1 Plt Count 271 MPV 7.5 Neut % (Auto) 78.3 H Lymph % (Auto) 11.9 [place] % (Auto) 7.5 Eos % (Auto) 1.9 Baso % (Auto) 0.4 Neut # (Auto) 12.4 H Lymph # (Auto) 1.9 [place] # (Auto) 1.2 H Eos # (Auto) 0.3 Baso # (Auto) 0.1 WBC Differential . Differential Comment Auto diff final PT 11.1 INR 1.1 APTT 31.3 H Sodium 135 L Potassium 4.2 Chloride 99 Carbon Dioxide 30.9 Anion Gap 5 BUN 17 Creatinine 1.03 Estimated GFR 74 L Random Glucose 113 H Lactic Acid Calcium 9.6 Total Bilirubin 1.5 H AST 14 L ALT 21 Alkaline Phosphatase 102 Total Protein 7.8 D Albumin 2.5 L Lipase Microbiology 07/24/18 14:20 Blood - Peripheral Aerobic Blood Culture - Preliminary No growth in 1 day 07/24/18 14:20 Blood - Peripheral Anaerobic Blood Culture - Preliminary No growth in 1 day - Imaging Impressions Gallbladder Ultrasound 07/24/18 14:12 CONCLUSION: 1. There is extensive gallbladder wall thickening with pericholecystic fluid and multiple gallstones. There was a positive Peters's sign. Exam would suggest acute cholecystitis. 2. Mildly dilated common bile duct at 8 mm. Assessment and Plan - Plan Sepsis(WBC 20 1.5K, temperature 99.7F, pulse 124, respiration 20, suspected infection gallbladder) Acute cholecystitis, severe The pt presents to the emergency department due to worsening right upper quadrant abdominal pain with associated nausea/ vomiting as well as subjective fever and chills. Gallbladder ultrasound indicates cholecystitis. General surgery consult appreciated. -continue Zosyn 3.375 g every 6 hours -Acetaminophen, Percocet and morphine IV for pain control. -Clear liquid diet for now, n.p.o. midnight, surgery planned in AM. -Continue normal saline at 100 cc/h. Elevated bilirubin Mild dilation of common bile duct -We will repeat CBC and CMP in the morning. Hypertension -patient is currently normotensive. Full code. SCDs
[2018-07-25] MEDS: oxyCODONE/Acetaminophen 10/325 Tablet PO PRN ×3 (12:24→22:08)
--- NOTE | 2018-07-25 14:19 | P.PNGS ---
Subjective Interval history: Resting in bed No complaints Physical Exam Vital signs: Vital Signs 07/24/18 18:45 07/24/18 20:00 07/25/18 00:00 Temperature 99.2 F 99.9 F H 98.7 F Pulse Rate 107 H 101 H 98 H Respiratory Rate 16 18 18 Blood Pressure 135/87 165/93 H 149/87 H Pulse Oximetry 91 L 93 L 93 L 07/25/18 04:00 07/25/18 08:00 07/25/18 12:00 Temperature 98 F 98.6 F 98.6 F Pulse Rate 93 H 94 H 95 H Respiratory Rate 18 18 16 Blood Pressure 130/79 135/68 Pulse Oximetry 94 L 92 L Intake & Output 07/24/18 07/25/18 07/25/18 18:59 06:59 18:59 Intake Total 2170 / 2170 1100 / 1100 50 / 50 Balance 2170 / 2170 1100 / 1100 50 / 50 Weight 113.398 kg 113.3 kg Intake: IV 2049 / 0 1100 / 1100 50 / 50 NS Inj 1,000 ML @ 100 mls/hr IV 1000 / 1000 .CONT .Q10H ENOC Rx#:[id number] Zosyn 3.375 GM Premix 50 ML @ 50 / 50 100 / 100 50 / 50 100 mls/hr IV.SIG Q6H ENOC Rx#: [id number] NS Inj 1,000 ML @ Wide Open IV. 1999 SIG BOLUS ENOC Rx#:[id number] Oral 120 / 120 0 / 0 Other: # Voids 3 Date of Last Bowel Movement 07/20/18 07/20/18 07/20/18 Narrative: Alert and awake Abd: mid epigastric and RUQ tenderness Results - Labs 07/29/18 06:20 07/29/18 06:20 Laboratory Results - last 24 hr 07/24/18 07/24/18 07/25/18 14:20 14:20 06:29 WBC 15.8 H RBC 5.11 Hgb 13.7 Hct 41.0 MCV 80.2 MCH 26.8 L MCHC 33.4 RDW 16.1 Plt Count 271 MPV 7.5 Neut % (Auto) 78.3 H Lymph % (Auto) 11.9 [place] % (Auto) 7.5 Eos % (Auto) 1.9 Baso % (Auto) 0.4 Neut # (Auto) 12.4 H Lymph # (Auto) 1.9 [place] # (Auto) 1.2 H Eos # (Auto) 0.3 Baso # (Auto) 0.1 WBC Differential . Differential Comment Auto diff final PT 11.1 INR 1.1 APTT 31.3 H Sodium Potassium Chloride Carbon Dioxide Anion Gap BUN Creatinine Estimated GFR Random Glucose Lactic Acid 1.0 Calcium Total Bilirubin AST ALT Alkaline Phosphatase Total Protein Albumin 07/25/18 06:29 WBC RBC Hgb Hct MCV MCH MCHC RDW Plt Count MPV Neut % (Auto) Lymph % (Auto) [place] % (Auto) Eos % (Auto) Baso % (Auto) Neut # (Auto) Lymph # (Auto) [place] # (Auto) Eos # (Auto) Baso # (Auto) WBC Differential Differential Comment PT INR APTT Sodium 135 L Potassium 4.2 Chloride 99 Carbon Dioxide 30.9 Anion Gap 5 BUN 17 Creatinine 1.03 Estimated GFR 74 L Random Glucose 113 H Lactic Acid Calcium 9.6 Total Bilirubin 1.5 H AST 14 L ALT 21 Alkaline Phosphatase 102 Total Protein 7.8 D Albumin 2.5 L - Imaging Imaging: ITS Impressions Gallbladder Ultrasound 07/24/18 14:12 CONCLUSION: 1. There is extensive gallbladder wall thickening with pericholecystic fluid and multiple gallstones. There was a positive Peters's sign. Exam would suggest acute cholecystitis. 2. Mildly dilated common bile duct at 8 mm. Assessment and Plan - Assessment (1) Hypertension Code(s): I10 - Essential (primary) hypertension Status: Acute (2) Anxiety Code(s): F41.9 - Anxiety disorder, unspecified Status: Acute (3) Acute cholecystitis Code(s): K81.0 - Acute cholecystitis Status: Acute Plan: 57 year old male with cholecystitis -Plan for OR tomorrow---lap ender; possible open; possible IOC -Clear liquids today; NPO after MN -Recheck CMP tomorrow AM As above; I have discussed risks of the procedure with the patient including but not limited to: bleeding, infection, bile duct injury, bowel injury, possible need for postoperative endoscopy. I discussed remedies, consequences, alternatives, and convalescence; he vocalizes understanding and wishes to proceed as soon as possible. He has been given clear liquids today and he will be made n.p.o. after midnight. The exam, history, and the medical decision-making described in the above note were completed with the assistance of the mid-level provider. I reviewed and agree with the findings presented. I attest that I had a [id number] encounter with the patient on the same day, and personally performed and documented my assessment and findings in the medical record.
--- NOTE | 2018-07-25 16:30 | ECG ---
Date Performed: 07/25/2018 Time Performed: 07:24:02 PTAGE: 57 years EKG: Sinus rhythm INFERIOR MYOCARDIAL INFARCTION , age indeterminate ABNORMAL ECG PREVIOUS TRACING : 07/25/2018 03.46 DOCTOR: Clemente Childress Interpretating Date/Time 07/25/2018 16:29:52
[2018-07-26] MEDS: Morphine Inj 4 MG/ML Vial IV.PUSH PRN ×4 (00:08→23:32)
[2018-07-26] MEDS: Sod Chloride 0.9% Inj 1,000 ML IV.CONT SCH ×3 (00:10→18:48)
[2018-07-26] MEDS: oxyCODONE/Acetaminophen 10/325 Tablet PO PRN ×4 (01:52→22:21)
[2018-07-26] MEDS: Piperacil/Tazo 3.375 GM Premix 50 ML IV.SIG SCH ×4 (01:53→20:41)
[2018-07-26] MEDS ORDERED: Chlorhexidine Gluconate 2% 1 Pack (2 Cloths) TOPICAL ONE (05:00)
[2018-07-26] MEDS ORDERED: Sodium Chlor 0.9% Inj 500 ML IV.CONT ONE (05:00)
[2018-07-26 07:58] LABS: Baso % (Auto) 0.4 % (0.0-2.0); Eos # (Auto) 0.3 th/mm3 (0.0-0.4); Eos % (Auto) 2.9 % (0.0-4.0); Hematocrit 36.5 % (39.0-51.0); Hemoglobin 12.1 gm/dL (13.0-17.0); Lymph # (Auto) 1.2 th/mm3 (1.0-4.8); Lymph % (Auto) 10.5 % (9.0-44.0); Mean Corpuscular HGB Conc 33.2 % (32.0-36.0); Mean Corpuscular Volume 81.4 fL (80.0-100.0); Mean Platelet Volume 7.6 fL (7.0-11.0); Mono # (Auto) 1.1 th/mm3 (0.0-0.9); Mono % (Auto) 9.8 % (0.0-8.0); Neut # (Auto) 8.8 th/mm3 (1.8-7.7); Neut % (Auto) 76.4 % (16.0-70.0); Platelet Count 222 th/mm3 (150-450); Red Blood Count 4.48 mil/mm3 (4.50-5.90); Red Cell Distribution Width 16.5 % (11.6-17.2); White Blood Count 11.5 th/mm3 (4.0-11.0)
[2018-07-26 08:15] LABS: Alanine Aminotransferase 26 U/L (12-78); Albumin 2.2 g/dL (3.4-5.0); Anion Gap 7 meq/L (5-15); Aspartate Aminotransferase 19 U/L (15-37); Blood Urea Nitrogen 10 mg/dL (7-18); Calcium 9.2 mg/dL (8.5-10.1); Carbon Dioxide 31.5 meq/L (21.0-32.0); Chloride 98 meq/L (98-107); Glomerular Filtration Rate 81 mL/min (>89); Glucose,Random 161 mg/dL (74-106); Lipase 32 U/L (73-393); Potassium 3.8 meq/L (3.5-5.1); Sodium 136 meq/L (136-145)
[2018-07-26 08:17] LABS: Alkaline Phosphatase 116 U/L (45-117); Total Protein 6.9 g/dL (6.4-8.2)
[2018-07-26] MEDS ORDERED: Sugammadex Inj 200 MG/2 ML Vial IV.PUSH ONE (12:34)
[2018-07-26] MEDS ORDERED: Dexmedetomidine Inj 200 MCG/2 ML Vial ONE (12:34)
[2018-07-26] MEDS ORDERED: Bupivacaine/Epinephrine Inj 0.25% 50 ML Vial ONE (12:40)
[2018-07-26] MEDS ORDERED: Glycopyrrolate Inj 1 MG/5 ML Syringe IV.PUSH ONE (13:26)
[2018-07-26] MEDS ORDERED: Lidocaine PF 1% Inj 5 ML Syringe OTHER ONE (13:26)
[2018-07-26] MEDS ORDERED: Neostigmine Inj 5 MG/5 ML Syringe IV.PUSH ONE (13:26)
[2018-07-26] MEDS ORDERED: Phenylephrine/NS 1000 MCG/10ML Syringe IV.PUSH ONE (13:26)
--- NOTE | 2018-07-26 17:03 | P.PNIM ---
Subjective Interval history: The pt was not seen as he has been in surgery for most of the day Physical Exam Vital signs: Vital Signs 07/25/18 20:00 07/26/18 00:00 07/26/18 04:00 Temperature 99.8 F H 97.8 F 97.8 F Pulse Rate 101 H 100 H 95 H Respiratory Rate 18 17 18 Blood Pressure 131/70 104/60 120/71 Pulse Oximetry 94 L 93 L 93 L 07/26/18 08:00 Temperature 98.6 F Pulse Rate 93 H Respiratory Rate 18 Blood Pressure 113/62 Pulse Oximetry 92 L Intake & Output 07/25/18 07/26/18 07/26/18 18:59 06:59 18:59 Intake Total 1100 / 1100 2100 / 2100 2750 / 2750 Output Total 550 / 550 Balance 1100 / 1100 2100 / 2100 2200 / 2200 Weight 113.3 kg Intake: IV 1100 / 1100 1100 / 1100 1050 / 1050 NS Inj 1,000 ML @ 100 mls/hr IV 1000 / 1000 1000 / 1000 1000 / 1000 .CONT .Q10H ENOC Rx#:[id number] Zosyn 3.375 GM Premix 50 ML @ 100 / 100 100 / 100 50 / 50 100 mls/hr IV.SIG Q6H ENOC Rx#: [id number] Oral 1000 / 1000 Anesthesia Amount 1700 / 1700 Output: Urine 250 / 250 Estimated Blood Loss 300 / 300 Other: # Voids 2 Date of Last Bowel Movement 07/20/18 07/20/18 07/19/18 Narrative: Not seen today, in surgery Results - Labs CBC & Chem 7: 07/26/18 06:39 07/26/18 06:39 Laboratory Results - last 24 hr 07/26/18 07/26/18 06:39 06:39 WBC 11.5 H RBC 4.48 L Hgb 12.1 L Hct 36.5 L MCV 81.4 MCH 27.0 MCHC 33.2 RDW 16.5 Plt Count 222 MPV 7.6 Neut % (Auto) 76.4 H Lymph % (Auto) 10.5 [place] % (Auto) 9.8 H Eos % (Auto) 2.9 Baso % (Auto) 0.4 Neut # (Auto) 8.8 H Lymph # (Auto) 1.2 [place] # (Auto) 1.1 H Eos # (Auto) 0.3 Baso # (Auto) 0.0 WBC Differential . Differential Comment Auto diff final Sodium 136 Potassium 3.8 Chloride 98 Carbon Dioxide 31.5 Anion Gap 7 BUN 10 Creatinine 0.95 Estimated GFR 81 L Random Glucose 161 H Calcium 9.2 Total Bilirubin 1.5 H Direct Bilirubin 0.5 H Indirect Bilirubin 1.0 H AST 19 ALT 26 Alkaline Phosphatase 116 Total Protein 6.9 D Albumin 2.2 L Lipase 32 L Microbiology 07/24/18 14:20 Blood - Peripheral Aerobic Blood Culture - Preliminary No growth in 2 days 07/24/18 14:20 Blood - Peripheral Anaerobic Blood Culture - Preliminary No growth in 2 days Assessment and Plan - Plan Sepsis(WBC 20 1.5K, temperature 99.7F, pulse 124, respiration 20, suspected infection gallbladder) Acute cholecystitis, severe The pt presents to the emergency department due to worsening right upper quadrant abdominal pain with associated nausea/ vomiting as well as subjective fever and chills. Gallbladder ultrasound indicates cholecystitis. General surgery consult appreciated. -continue Zosyn 3.375 g every 6 hours -Acetaminophen, Percocet and morphine IV for pain control. -cholecystectomy 07/26 -Continue normal saline at 100 cc/h. -d/c when cleared by surgery. Elevated bilirubin Mild dilation of common bile duct -We will repeat CBC and CMP in the morning. Hypertension -patient is currently normotensive. Full code. SCDs
[2018-07-26] MEDS ORDERED: Morphine Inj 4 MG/ML Vial ONE (17:13)
[2018-07-26] MEDS ORDERED: fentaNYL Citrate Inj 100 MCG/2 ML Ampul ONE (17:13)
[2018-07-26] MEDS ORDERED: *morphine SULFATE 10 MG/ML PERIprocedure ONLY ONE (17:37)
--- NOTE | 2018-07-26 17:54 | P.OP ---
- Preoperative Diagnosis (1) Acute cholecystitis - Postoperative Diagnosis (1) Acute gangrenous cholecystitis Date of procedure: 07/26/18 Procedure: Laparoscopic cholecystectomy Primary umbilical hernia repair Anesthesia: EUGENIO Surgeon: Bucky Fernández MD Regional Environmental Manager: Bernice LEE Estimated blood loss (mL): 300 IV fluids (mL): 1,700 Pathology: other (Gallbladder and contents to pathology) Operation and Findings: Patient was taken to the operating room and placed on the operating table in the supine position. After an adequate level of general endotracheal anesthesia was achieved, the abdomen was prepped and draped in the usual fashion. Time-out was taken, confirming the correct patient, site, and procedure to be performed. Skin and subcutaneous tissue was infiltrated with local anesthetic and an incision made in the umbilicus and carried through the skin. Preperitoneal fat , which comprised and umbilical hernia was reduced into the abdominal cavity. The peritoneal cavity was directly visualized. A 12 mm balloon trocar was inserted and the balloon inflated. The abdomen was insufflated. The patient was placed in reverse Trendelenburg position. Three 5 mm trocars were placed, with the first to the right of the falciform ligament, and second and third in the right subcostal region. All entered the abdominal cavity under direct vision uneventfully. The gallbladder was quite inflamed and after gently dissecting colon and omentum off of the gallbladder wall, the gallbladder was punctured with an aspirating needle and approximately 60 mls of dark green bile was removed. This allowed for the gallbladder to be decompressed and grasped. The gallbladder was grasped and retracted upward. The gallbladder wall appeared to be gangrenous at 2 locations but not perforated. Dissection was carried out down near the infundibulum, but the cystic artery and cystic duct could not be easily identified. As a result, and with the tremendous acute inflammatory process, a dome down approach was utilized. The patient had two areas on the gallbladder that were gangrenous, but no perforation occurred during the procedure. The gallbladder was dissected off the liver bed with a combination of blunt dissection and use of the harmonic scalpel. This allowed for steady dissection down to the level of the infundibulum. The cystic artery was identified and doubly clipped proximally, singly clipped on the gallbladder side, and divided. A small accessory vessel was also identified and this was doubly clipped proximally and singly clipped on the gallbladder side and divided as well. Further careful dissection demonstrated acute inflammatory process. As a result, a cholangiogram was not obtained in this individual. A 0 PDS Endoloop was slipped over the gallbladder and was able to be cinched down at the base of the infundibulum. A substantial stump of tissue was left behind so as not to stenose the common duct. At this point the gallbladder was divided proximal to the Endoloop and the gallbladder then placed into an Endo Catch device. While observing via the upper 5 mm trocar site, the gallbladder was removed via the umbilical port site. The umbilical incision needed to be lengthened to remove an extremely large gallbladder which was quite inflamed. After the gallbladder was passed off the table, the upper abdomen was revisualized via the umbilical port. No bleeding was noted from the cystic artery stumps, cystic duct stump or liver bed. Copious irrigation ensued and after irrigating and aspirating all of the irrigant, no bleeding was noted. A LAURI drain was brought in via the upper 5 mm trocar site and out via the lateralmost 5 mm trocar site and secured to the skin with a 3-0 nylon suture. The drain was placed in the liver bed. Insufflation was then discontinued and the remaining port removed. No bleeding was noted from the port sites. The laparoscope and umbilical port were then removed. The fascial edges were freshened up at the umbilical port site and the fascia closed at this location with #1 Prolene in the simple interrupted fashion. Remaining local anesthetic was injected into each of the trocar sites, with the majority placed in the umbilical fascia. When this had been completed, the umbilical skin was tacked down to the fascia with a 3-0 Vicryl suture. The skin was then closed with interrupted buried 3-0 Vicryl sutures. A 4 x 4 and Tegaderm were placed over the umbilicus. Steri-Strips were placed over the other 2 trocar sites after closing them with 4-0 Vicryl. A 4 x 4 was placed around the drain site. Sponge and needle counts were reported to be correct. An abdominal binder was applied. Patient was extubated and taken back to the recovery room in stable condition. He tolerated the procedure extremely well, and was hemodynamically stable throughout.
[2018-07-27] MEDS: Piperacil/Tazo 3.375 GM Premix 50 ML IV.SIG SCH ×4 (02:49→21:47)
[2018-07-27] MEDS: oxyCODONE/Acetaminophen 10/325 Tablet PO PRN ×5 (02:49→21:47)
[2018-07-27] MEDS: Morphine Inj 4 MG/ML Vial IV.PUSH PRN ×3 (04:46→19:14)
[2018-07-27] MEDS: Sod Chloride 0.9% Inj 1,000 ML IV.CONT SCH ×3 (04:48→15:15)
[2018-07-27 08:13] LABS: Baso % (Auto) 0.2 % (0.0-2.0); Hematocrit 35.1 % (39.0-51.0); Hemoglobin 11.7 gm/dL (13.0-17.0); Lymph % (Auto) 9.6 % (9.0-44.0); Mean Corpuscular HGB Conc 33.5 % (32.0-36.0); Mean Corpuscular Hemoglobin 27.2 pg (27.0-34.0); Mean Corpuscular Volume 81.3 fL (80.0-100.0); Mean Platelet Volume 7.6 fL (7.0-11.0); Mono # (Auto) 0.7 th/mm3 (0.0-0.9); Mono % (Auto) 6.6 % (0.0-8.0); Neut # (Auto) 8.8 th/mm3 (1.8-7.7); Neut % (Auto) 83.6 % (16.0-70.0); Platelet Count 296 th/mm3 (150-450); Red Blood Count 4.32 mil/mm3 (4.50-5.90); Red Cell Distribution Width 16.1 % (11.6-17.2); White Blood Count 10.5 th/mm3 (4.0-11.0)
[2018-07-27 08:59] LABS: Calcium 9.4 mg/dL (8.5-10.1); Carbon Dioxide 29.6 meq/L (21.0-32.0); Potassium 4.4 meq/L (3.5-5.1)
--- NOTE | 2018-07-27 11:38 | P.PNGS ---
Subjective Interval history: Resting in bed Did not sleep well last night Hungry; wants something to eat Physical Exam Vital signs: Vital Signs 07/26/18 17:04 07/26/18 17:15 07/26/18 17:30 Temperature 99.4 F Pulse Rate 82 85 83 Respiratory Rate 15 10 L 13 Blood Pressure 103/61 100/52 L 111/54 L Pulse Oximetry 95 94 L 94 L 07/26/18 17:51 07/26/18 18:00 07/26/18 18:07 Temperature 98.2 F Pulse Rate 80 80 Respiratory Rate 11 L 11 L Blood Pressure 122/69 124/65 Pulse Oximetry 92 L 97 97 07/26/18 18:25 07/26/18 20:00 07/27/18 00:00 Temperature 97.8 F 97.8 F 97.8 F Pulse Rate 78 85 80 Respiratory Rate 12 18 18 Blood Pressure 118/60 131/81 125/75 Pulse Oximetry 94 L 92 L 92 L 07/27/18 08:00 Temperature 97 F L Pulse Rate 65 Respiratory Rate 20 Blood Pressure 128/79 Pulse Oximetry 95 Intake & Output 07/26/18 07/27/18 07/27/18 18:59 06:59 18:59 Intake Total 3740 / 3740 1100 / 1100 Output Total 565 / 565 50 / 50 Balance 3175 / 3175 1050 / 1050 Weight 120.1 kg Intake: IV 1800 / 1800 1100 / 1100 NS Inj 1,000 ML @ 100 mls/hr IV 1700 / 1700 1000 / 1000 .CONT .Q10H [facility] Rx#:[id number] Zosyn 3.375 GM Premix 50 ML @ 100 / 100 100 / 100 100 mls/hr IV.SIG Q6H [facility] Rx#: [id number] Oral 240 / 240 Anesthesia Amount 1700 / 1700 Output: Urine 250 / 250 Estimated Blood Loss 300 / 300 Wound Drainage 50 / 50 # 1 Abdomen 50 / 50 Other: # Voids 3 1 Date of Last Bowel Movement 07/19/18 Narrative: Alert and awake Abd: obese; lap sites c/d/i; LAURI with minimal dark brown drainage Results - Labs 07/27/18 06:33 07/27/18 06:33 Laboratory Results - last 24 hr 07/27/18 07/27/18 06:33 06:33 WBC 10.5 RBC 4.32 L Hgb 11.7 L Hct 35.1 L MCV 81.3 MCH 27.2 MCHC 33.5 RDW 16.1 Plt Count 296 D MPV 7.6 Neut % (Auto) 83.6 H Lymph % (Auto) 9.6 [place] % (Auto) 6.6 Eos % (Auto) 0.0 Baso % (Auto) 0.2 Neut # (Auto) 8.8 H Lymph # (Auto) 1.0 [place] # (Auto) 0.7 Eos # (Auto) 0.0 Baso # (Auto) 0.0 WBC Differential . Differential Comment Auto diff final Sodium 137 Potassium 4.4 Chloride 99 Carbon Dioxide 29.6 Anion Gap 8 BUN 12 Creatinine 0.96 Estimated GFR 80 L Random Glucose 195 H Calcium 9.4 - Imaging Imaging: ITS Impressions Gallbladder Ultrasound 07/24/18 14:12 CONCLUSION: 1. There is extensive gallbladder wall thickening with pericholecystic fluid and multiple gallstones. There was a positive Peters's sign. Exam would suggest acute cholecystitis. 2. Mildly dilated common bile duct at 8 mm. Assessment and Plan - Assessment (1) Hypertension Code(s): I10 - Essential (primary) hypertension Status: Acute (2) Anxiety Code(s): F41.9 - Anxiety disorder, unspecified Status: Acute (3) Acute cholecystitis Code(s): K81.0 - Acute cholecystitis Status: Acute Plan: 57 year old male with cholecystitis; POD1 lap ender for gangrenous cholecystitis -Continue Zosyn -Continue routine LAURI drain care -OOB -Await LFT results -Based on LFT (particularly looking at the total bilirubin) results I will either advance diet vs GI consult -Patient will need a few days of IV antibiotics prior to going home; then will go home with PO antibiotics T bili normalized today; expected transaminase increase due to cautery LAURI output only 65 ml, but bile tinged As above; if LFT's continue to decrease, can advance diet The exam, history, and the medical decision-making described in the above note were completed with the assistance of the mid-level provider. I reviewed and agree with the findings presented. I attest that I had a [id number] encounter with the patient on the same day, and personally performed and documented my assessment and findings in the medical record.
[2018-07-27 12:53] LABS: Albumin 2.3 g/dL (3.4-5.0); Total Protein 7.8 g/dL (6.4-8.2)
--- NOTE | 2018-07-27 13:35 | P.PNIM ---
Subjective Interval history: The patient was complaining of a lot of abdominal pain. He said that the abdominal binder seems to be bothering his stomach. He requests pain medication. He would like a more regular diet. Physical Exam Vital signs: Vital Signs 07/26/18 17:04 07/26/18 17:15 07/26/18 17:30 Temperature 99.4 F Pulse Rate 82 85 83 Respiratory Rate 15 10 L 13 Blood Pressure 103/61 100/52 L 111/54 L Pulse Oximetry 95 94 L 94 L 07/26/18 17:51 07/26/18 18:00 07/26/18 18:07 Temperature 98.2 F Pulse Rate 80 80 Respiratory Rate 11 L 11 L Blood Pressure 122/69 124/65 Pulse Oximetry 92 L 97 97 07/26/18 18:25 07/26/18 20:00 07/27/18 00:00 Temperature 97.8 F 97.8 F 97.8 F Pulse Rate 78 85 80 Respiratory Rate 12 18 18 Blood Pressure 118/60 131/81 125/75 Pulse Oximetry 94 L 92 L 92 L 07/27/18 08:00 Temperature 97 F L Pulse Rate 65 Respiratory Rate 20 Blood Pressure 128/79 Pulse Oximetry 95 Intake & Output 07/26/18 07/27/18 07/27/18 18:59 06:59 18:59 Intake Total 3740 / 3740 1100 / 1100 Output Total 565 / 565 50 / 50 Balance 3175 / 3175 1050 / 1050 Weight 120.1 kg Intake: IV 1800 / 1800 1100 / 1100 NS Inj 1,000 ML @ 100 mls/hr IV 1700 / 1700 1000 / 1000 .CONT .Q10H [facility] Rx#:[id number] Zosyn 3.375 GM Premix 50 ML @ 100 / 100 100 / 100 100 mls/hr IV.SIG Q6H [facility] Rx#: [id number] Oral 240 / 240 Anesthesia Amount 1700 / 1700 Output: Urine 250 / 250 Estimated Blood Loss 300 / 300 Wound Drainage 50 / 50 # 1 Abdomen 50 / 50 Other: # Voids 3 1 Date of Last Bowel Movement 07/19/18 Narrative: GENERAL: This is a well-nourished, well-developed patient, in no apparent distress. SKIN: No rashes, ecchymoses or lesions. Warm and dry. HEAD: Atraumatic. Normocephalic. No temporal or scalp tenderness. EYES: Pupils equal round and reactive. No injection or drainage. Nonicteric sclera. ENT: Nose without bleeding, purulent drainage or septal hematoma. Airway patent. NECK: Trachea midline. No lymphadenopathy. Supple, nontender, no meningeal signs. CARDIOVASCULAR: Regular rhythm, tachycardic without murmurs, gallops, or rubs. No JVD. RESPIRATORY: Clear to auscultation. Breath sounds equal bilaterally. No wheezes , rales, or rhonchi. GASTROINTESTINAL: Abdomen soft, tender to palpation, bandage in place. MUSCULOSKELETAL: Extremities without clubbing, cyanosis, or edema. NEUROLOGICAL: Awake and alert. Cranial nerves II through XII intact. No focal neurological deficits. Normal speech. Results - Labs CBC & Chem 7: 07/27/18 06:33 07/27/18 06:33 Laboratory Results - last 24 hr 07/27/18 07/27/18 07/27/18 06:33 06:33 06:33 WBC 10.5 RBC 4.32 L Hgb 11.7 L Hct 35.1 L MCV 81.3 MCH 27.2 MCHC 33.5 RDW 16.1 Plt Count 296 D MPV 7.6 Neut % (Auto) 83.6 H Lymph % (Auto) 9.6 [place] % (Auto) 6.6 Eos % (Auto) 0.0 Baso % (Auto) 0.2 Neut # (Auto) 8.8 H Lymph # (Auto) 1.0 [place] # (Auto) 0.7 Eos # (Auto) 0.0 Baso # (Auto) 0.0 WBC Differential . Differential Comment Auto diff final Sodium 137 Potassium 4.4 Chloride 99 Carbon Dioxide 29.6 Anion Gap 8 BUN 12 Creatinine 0.96 Estimated GFR 80 L Random Glucose 195 H Calcium 9.4 Total Bilirubin 0.8 Direct Bilirubin 0.3 H Indirect Bilirubin 0.5 AST 220 H ALT 188 H Alkaline Phosphatase 144 H Total Protein 7.8 D Albumin 2.3 L Microbiology 07/24/18 14:20 Blood - Peripheral Aerobic Blood Culture - Preliminary No growth in 3 days 07/24/18 14:20 Blood - Peripheral Anaerobic Blood Culture - Preliminary No growth in 3 days Assessment and Plan - Plan Sepsis(WBC 20 1.5K, temperature 99.7F, pulse 124, respiration 20, suspected infection gallbladder)/Acute cholecystitis, severe The pt presents to the emergency department due to worsening right upper quadrant abdominal pain with associated nausea/ vomiting as well as subjective fever and chills. Gallbladder ultrasound indicates cholecystitis. General surgery consult appreciated. S/p cholecystectomy 07/26. Gangrenous gallbladder was removed. -continue Zosyn 3.375 g every 6 hours. -Acetaminophen, Percocet and morphine IV for pain control. -clear liquid diet. -trend LFTs. AST and ALT have increased, bilirubin has decreased. Hypertension Patient is currently normotensive. -clonidine as needed. PPx: SCDs Discharge Planning: Await surgical clearance
[2018-07-28] MEDS: Piperacil/Tazo 3.375 GM Premix 50 ML IV.SIG SCH ×4 (02:18→20:01)
[2018-07-28] MEDS: Sod Chloride 0.9% Inj 1,000 ML IV.CONT SCH ×3 (02:18→21:33)
[2018-07-28] MEDS: Morphine Inj 4 MG/ML Vial IV.PUSH PRN ×5 (04:02→21:55)
[2018-07-28] MEDS: oxyCODONE/Acetaminophen 10/325 Tablet PO PRN ×4 (05:50→20:01)
[2018-07-28 07:08] LABS: Baso % (Auto) 0.4 % (0.0-2.0); Eos # (Auto) 0.1 th/mm3 (0.0-0.4); Eos % (Auto) 1.9 % (0.0-4.0); Hematocrit 33.8 % (39.0-51.0); Hemoglobin 10.8 gm/dL (13.0-17.0); Lymph # (Auto) 1.3 th/mm3 (1.0-4.8); Lymph % (Auto) 19.2 % (9.0-44.0); Mean Corpuscular HGB Conc 31.9 % (32.0-36.0); Mean Corpuscular Hemoglobin 26.5 pg (27.0-34.0); Mean Corpuscular Volume 82.9 fL (80.0-100.0); Mean Platelet Volume 7.1 fL (7.0-11.0); Mono # (Auto) 0.7 th/mm3 (0.0-0.9); Neut # (Auto) 4.6 th/mm3 (1.8-7.7); Neut % (Auto) 68.5 % (16.0-70.0); Platelet Count 284 th/mm3 (150-450); Red Blood Count 4.08 mil/mm3 (4.50-5.90); Red Cell Distribution Width 16.6 % (11.6-17.2); White Blood Count 6.7 th/mm3 (4.0-11.0)
[2018-07-28 07:34] LABS: Alanine Aminotransferase 153 U/L (12-78); Albumin 2.1 g/dL (3.4-5.0); Anion Gap 4 meq/L (5-15); Aspartate Aminotransferase 112 U/L (15-37); Blood Urea Nitrogen 8 mg/dL (7-18); Calcium 8.7 mg/dL (8.5-10.1); Carbon Dioxide 33.6 meq/L (21.0-32.0); Chloride 103 meq/L (98-107); Glomerular Filtration Rate Greater Than 89 mL/min (>89); Glucose,Random 113 mg/dL (74-106); Potassium 3.6 meq/L (3.5-5.1); Sodium 141 meq/L (136-145)
[2018-07-28 07:36] LABS: Alkaline Phosphatase 109 U/L (45-117); Total Protein 6.8 g/dL (6.4-8.2)
--- NOTE | 2018-07-28 14:08 | P.PNIM ---
Subjective Interval history: The patient was complaining of pain in requested increased pain medication. He said he has been passing gas but has not had any bowel movements in days. He is tolerating a diet. Physical Exam Vital signs: Vital Signs 07/27/18 16:00 07/27/18 20:00 07/28/18 00:00 Temperature 98 F 97.9 F 97.3 F L Pulse Rate 76 74 85 Respiratory Rate 18 17 17 Blood Pressure 126/74 127/72 135/73 Pulse Oximetry 94 L 93 L 92 L 07/28/18 08:00 07/28/18 12:00 Temperature 97.9 F 98.4 F Pulse Rate 76 78 Respiratory Rate 19 19 Blood Pressure 161/99 H 172/101 H Pulse Oximetry 93 L 92 L Intake & Output 07/27/18 07/28/18 07/28/18 18:59 06:59 18:59 Intake Total 3216 / 3216 3100 / 3100 1050 / 1050 Output Total 1620 / 1620 Balance 3206 / 3206 1480 / 1480 1050 / 1050 Weight 121.1 kg Intake: IV 1100 / 1100 1100 / 1100 1050 / 1050 NS Inj 1,000 ML @ 100 mls/hr IV 1000 / 1000 1000 / 1000 1000 / 1000 .CONT .Q10H [facility] Rx#:[id number] Zosyn 3.375 GM Premix 50 ML @ 100 / 100 100 / 100 50 / 50 100 mls/hr IV.SIG Q6H [facility] Rx#: [id number] Oral 2116 / 2116 1999 / 1999 Output: Urine 1600 / 1600 Wound Drainage # 1 Abdomen Other: # Voids 6 Narrative: GENERAL: This is a well-nourished, well-developed patient, in no apparent distress. SKIN: No rashes, ecchymoses or lesions. Warm and dry. HEAD: Atraumatic. Normocephalic. No temporal or scalp tenderness. EYES: Pupils equal round and reactive. No injection or drainage. Nonicteric sclera. ENT: Nose without bleeding, purulent drainage or septal hematoma. Airway patent. NECK: Trachea midline. No lymphadenopathy. Supple, nontender, no meningeal signs. CARDIOVASCULAR: Regular rhythm, tachycardic without murmurs, gallops, or rubs. No JVD. RESPIRATORY: Clear to auscultation. Breath sounds equal bilaterally. No wheezes , rales, or rhonchi. GASTROINTESTINAL: Abdomen soft, tender to palpation, bandage in place. Decreased bowel sounds. MUSCULOSKELETAL: Extremities without clubbing, cyanosis, or edema. NEUROLOGICAL: Awake and alert. Cranial nerves II through XII intact. No focal neurological deficits. Normal speech. Results - Labs CBC & Chem 7: 07/28/18 06:21 07/28/18 06:21 Laboratory Results - last 24 hr 07/28/18 07/28/18 06:21 06:21 WBC 6.7 RBC 4.08 L Hgb 10.8 L Hct 33.8 L MCV 82.9 MCH 26.5 L MCHC 31.9 L RDW 16.6 Plt Count 284 MPV 7.1 Neut % (Auto) 68.5 Lymph % (Auto) 19.2 [place] % (Auto) 10.0 H Eos % (Auto) 1.9 Baso % (Auto) 0.4 Neut # (Auto) 4.6 Lymph # (Auto) 1.3 [place] # (Auto) 0.7 Eos # (Auto) 0.1 Baso # (Auto) 0.0 WBC Differential . Differential Comment Auto diff final Sodium 141 Potassium 3.6 D Chloride 103 Carbon Dioxide 33.6 H Anion Gap 4 L BUN 8 Creatinine 0.83 Estimated GFR Greater than 89 Random Glucose 113 H Calcium 8.7 Total Bilirubin 0.4 Direct Bilirubin 0.2 Indirect Bilirubin 0.2 AST 112 H ALT 153 H Alkaline Phosphatase 109 Total Protein 6.8 D Albumin 2.1 L Microbiology 07/24/18 14:20 Blood - Peripheral Aerobic Blood Culture - Preliminary No growth in 4 days 07/24/18 14:20 Blood - Peripheral Anaerobic Blood Culture - Preliminary No growth in 4 days Assessment and Plan - Plan Sepsis(WBC 20 1.5K, temperature 99.7F, pulse 124, respiration 20, suspected infection gallbladder)/Acute cholecystitis, severe The pt presents to the emergency department due to worsening right upper quadrant abdominal pain with associated nausea/ vomiting as well as subjective fever and chills. Gallbladder ultrasound indicates cholecystitis. General surgery consult appreciated. S/p cholecystectomy 07/26. Gangrenous gallbladder was removed. -continue Zosyn 3.375 g every 6 hours. -Acetaminophen, Percocet and morphine IV for pain control. -diet per surgery. -trend LFTs. Improving. Constipation The pt says he hasn't had a bowel movement in about a week. -increase bowel regimen. Enema if needed. Hypertension Patient is currently normotensive. -clonidine as needed. PPx: Lovenox Discharge Planning: Await surgical clearance, may need to receive antibiotics through the weekend. Also needs a bowel movement.
--- NOTE | 2018-07-28 14:39 | P.PNGS ---
Subjective Interval history: Resting in bed No issues Hungry Physical Exam Vital signs: Vital Signs 07/27/18 16:00 07/27/18 20:00 07/28/18 00:00 Temperature 98 F 97.9 F 97.3 F L Pulse Rate 76 74 85 Respiratory Rate 18 17 17 Blood Pressure 126/74 127/72 135/73 Pulse Oximetry 94 L 93 L 92 L 07/28/18 08:00 07/28/18 12:00 Temperature 97.9 F 98.4 F Pulse Rate 76 78 Respiratory Rate 19 19 Blood Pressure 161/99 H 172/101 H Pulse Oximetry 93 L 92 L Intake & Output 07/27/18 07/28/18 07/28/18 18:59 06:59 18:59 Intake Total 3216 / 3216 3100 / 3100 1100 / 1100 Output Total 1620 / 1620 Balance 3206 / 3206 1480 / 1480 1100 / 1100 Weight 121.1 kg Intake: IV 1100 / 1100 1100 / 1100 1100 / 1100 NS Inj 1,000 ML @ 100 mls/hr IV 1000 / 1000 1000 / 1000 1000 / 1000 .CONT .Q10H [facility] Rx#:[id number] Zosyn 3.375 GM Premix 50 ML @ 100 / 100 100 / 100 100 / 100 100 mls/hr IV.SIG Q6H [facility] Rx#: [id number] Oral 2115 / 2115 Output: Urine 1600 / 1600 Wound Drainage # 1 Abdomen Other: # Voids 6 Narrative: Alert and awake Abd: soft; minimally tender to palpation; LAURI with dark drainage Results - Labs 07/29/18 06:20 07/29/18 06:20 Laboratory Results - last 24 hr 07/28/18 07/28/18 06:21 06:21 WBC 6.7 RBC 4.08 L Hgb 10.8 L Hct 33.8 L MCV 82.9 MCH 26.5 L MCHC 31.9 L RDW 16.6 Plt Count 284 MPV 7.1 Neut % (Auto) 68.5 Lymph % (Auto) 19.2 [place] % (Auto) 10.0 H Eos % (Auto) 1.9 Baso % (Auto) 0.4 Neut # (Auto) 4.6 Lymph # (Auto) 1.3 [place] # (Auto) 0.7 Eos # (Auto) 0.1 Baso # (Auto) 0.0 WBC Differential . Differential Comment Auto diff final Sodium 141 Potassium 3.6 D Chloride 103 Carbon Dioxide 33.6 H Anion Gap 4 L BUN 8 Creatinine 0.83 Estimated GFR Greater than 89 Random Glucose 113 H Calcium 8.7 Total Bilirubin 0.4 Direct Bilirubin 0.2 Indirect Bilirubin 0.2 AST 112 H ALT 153 H Alkaline Phosphatase 109 Total Protein 6.8 D Albumin 2.1 L - Imaging Imaging: ITS Impressions Gallbladder Ultrasound 07/24/18 14:12 CONCLUSION: 1. There is extensive gallbladder wall thickening with pericholecystic fluid and multiple gallstones. There was a positive Peters's sign. Exam would suggest acute cholecystitis. 2. Mildly dilated common bile duct at 8 mm. Assessment and Plan - Assessment (1) Hypertension Code(s): I10 - Essential (primary) hypertension Status: Acute (2) Anxiety Code(s): F41.9 - Anxiety disorder, unspecified Status: Acute (3) Acute cholecystitis Code(s): K81.0 - Acute cholecystitis Status: Acute Plan: 57 year old male with cholecystitis; POD2 lap ender for gangrenous cholecystitis -Total bilirubin now normal -Advance to soft diet -Continue Zosyn -OOB as tolerated -DC IVF LFT's normalizing; T bili has remained normal since surgery LAURI output decreasing; will discharge with ALURI drain and remove next week in office Likely discharge home Sunday 07/29 I attest that I had a [id number] encounter with the patient on the same day, and personally performed and documented my assessment and findings in the medical record. The exam, history, and the medical decision-making described in the above note were completed with the assistance of the mid-level provider. I reviewed and agree with the findings presented. I attest that I had a [id number] encounter with the patient on the same day, and personally performed and documented my assessment and findings in the medical record.
[2018-07-28] MEDS: Senna/Docusate Sodium 8.6/50 MG Tablet PO SCH ×2 (16:03→20:01)
[2018-07-28] MEDS: Enoxaparin Inj 40 MG/0.4 ML Syringe SQ SCH (16:03)
[2018-07-29] MEDS: Piperacil/Tazo 3.375 GM Premix 50 ML IV.SIG SCH ×2 (01:06→07:39)
[2018-07-29] MEDS: oxyCODONE/Acetaminophen 10/325 Tablet PO PRN ×2 (01:07→06:10)
[2018-07-29] MEDS ORDERED: Sodium Chloride 0.9% 2 ML Flush PRN IV.FLUSH (01:39)
[2018-07-29] MEDS: Morphine Inj 4 MG/ML Vial IV.PUSH PRN ×2 (03:24→07:39)
[2018-07-29] MEDS: Sod Chloride 0.9% Inj 1,000 ML IV.CONT SCH (06:08)
[2018-07-29 08:17] LABS: Albumin 2.1 g/dL (3.4-5.0); Anion Gap 6 meq/L (5-15); Aspartate Aminotransferase 47 U/L (15-37); Blood Urea Nitrogen 9 mg/dL (7-18); Chloride 102 meq/L (98-107); Glomerular Filtration Rate Greater Than 89 mL/min (>89); Glucose,Random 168 mg/dL (74-106); Potassium 3.7 meq/L (3.5-5.1); Sodium 140 meq/L (136-145)
[2018-07-29 08:18] LABS: Alanine Aminotransferase 111 U/L (12-78)
[2018-07-29 08:20] LABS: Alkaline Phosphatase 120 U/L (45-117); Total Protein 6.7 g/dL (6.4-8.2)
[2018-07-29 08:22] LABS: Hematocrit 34.3 % (39.0-51.0); Hemoglobin 10.9 gm/dL (13.0-17.0); Mean Corpuscular HGB Conc 31.7 % (32.0-36.0); Mean Corpuscular Hemoglobin 26.5 pg (27.0-34.0); Mean Corpuscular Volume 83.5 fL (80.0-100.0); Platelet Count 334 th/mm3 (150-450); Red Blood Count 4.11 mil/mm3 (4.50-5.90); Red Cell Distribution Width 16.3 % (11.6-17.2); White Blood Count 6.8 th/mm3 (4.0-11.0)
[2018-07-29] MEDS: Senna/Docusate Sodium 8.6/50 MG Tablet PO SCH (08:32)
[2018-07-29] MEDS: Enoxaparin Inj 40 MG/0.4 ML Syringe SQ SCH (08:32)
[2018-07-29] MEDS ORDERED: Sodium Chloride 0.9% 2 ML Flush BID IV.FLUSH SCH (09:00)
--- NOTE | 2018-07-29 10:05 | P.PNIM ---
Subjective Interval history: f/u; acute cholecystitis in no acute distress. has some abdominal pain and mild nausea/ no emesis or fever. Physical Exam Vital signs: Vital Signs 07/28/18 12:00 07/28/18 16:00 07/28/18 20:00 Temperature 98.4 F 98.4 F 99.2 F Pulse Rate 78 74 77 Respiratory Rate 19 19 20 Blood Pressure 172/101 H 173/102 H 194/98 H Pulse Oximetry 92 L 93 L 96 07/28/18 23:00 07/29/18 08:00 Temperature 98.7 F 98.0 F Pulse Rate 81 67 Respiratory Rate 20 18 Blood Pressure 166/85 H 149/85 H Pulse Oximetry 99 92 L Intake & Output 07/28/18 07/29/18 07/29/18 18:59 06:59 18:59 Intake Total 2700 / 2700 1880 / 1880 50 / 50 Output Total 2900 / 2900 2430 / 2430 Balance -200 / -200 -550 / -550 50 / 50 Weight 121 kg Intake: IV 1100 / 1100 1100 / 1100 50 / 50 NS Inj 1,000 ML @ 100 mls/hr IV 1000 / 1000 1000 / 1000 .CONT .Q10H [facility] Rx#:[id number] Zosyn 3.375 GM Premix 50 ML @ 100 / 100 100 / 100 50 / 50 100 mls/hr IV.SIG Q6H [facility] Rx#: [id number] Oral 1600 / 1600 780 / 780 Output: Urine 2900 / 2900 2400 / 2400 Wound Drainage 30 / 30 # 1 Abdomen 30 / 30 - Constitutional no acute distress - Routine Respiratory Exam Present: CTA bilaterally - Routine Cardiovascular Exam Present: RRR - Routine Abdominal Exam Present: soft, tenderness (more or less with generalized tenderness.) - Routine Extremities Exam Comments: no pedal edema. - Routine Neurological Exam Present: alert, oriented X3 Results - Labs CBC & Chem 7: 07/29/18 06:20 07/29/18 06:20 Laboratory Results - last 24 hr 07/29/18 07/29/18 06:20 06:20 WBC 6.8 RBC 4.11 L Hgb 10.9 L Hct 34.3 L MCV 83.5 MCH 26.5 L MCHC 31.7 L RDW 16.3 Plt Count 334 MPV 7.0 Sodium 140 Potassium 3.7 Chloride 102 Carbon Dioxide 32.0 Anion Gap 6 BUN 9 Creatinine 0.76 Estimated GFR Greater than 89 Random Glucose 168 H Calcium 9.0 Total Bilirubin 0.2 Direct Bilirubin 0.1 Indirect Bilirubin 0.1 AST 47 H ALT 111 H Alkaline Phosphatase 120 H Total Protein 6.7 Albumin 2.1 L Microbiology 07/24/18 14:20 Blood - Peripheral Aerobic Blood Culture - Preliminary No growth in 4 days 07/24/18 14:20 Blood - Peripheral Anaerobic Blood Culture - Preliminary No growth in 4 days Assessment and Plan - Plan Sepsis(WBC 20 1.5K, temperature 99.7F, pulse 124, respiration 20, suspected infection gallbladder)/Acute cholecystitis, severe The pt presents to the emergency department due to worsening right upper quadrant abdominal pain with associated nausea/ vomiting as well as subjective fever and chills. Gallbladder ultrasound indicates cholecystitis. General surgery consult appreciated. S/p cholecystectomy 07/26. Gangrenous gallbladder was removed. -continue Zosyn 3.375 g every 6 hours. -Acetaminophen, Percocet and morphine IV for pain control. -diet per surgery. -trend LFTs. Improving. Constipation - bowel regimen. Enema if needed. Hypertension -will resume lisinopril. -clonidine as needed. PPx: Lovenox Discharge Planning: when cleared by general surgery.
[2018-07-29] MEDS ORDERED: Lisinopril 5 MG Tablet PO SCH (11:00)
[2018-07-29] MEDS ORDERED: oxyCODONE/Acetaminophen 10/325 Tablet PO PRN (11:00)
--- NOTE | 2018-07-29 11:00 | P.PNGS ---
Subjective Patient reports: no new complaints, flatus, no bowel movement Physical Exam Vital signs: Vital Signs 07/28/18 12:00 07/28/18 16:00 07/28/18 20:00 Temperature 98.4 F 98.4 F 99.2 F Pulse Rate 78 74 77 Respiratory Rate 19 19 20 Blood Pressure 172/101 H 173/102 H 194/98 H Pulse Oximetry 92 L 93 L 96 07/28/18 23:00 07/29/18 08:00 Temperature 98.7 F 98.0 F Pulse Rate 81 67 Respiratory Rate 20 18 Blood Pressure 166/85 H 149/85 H Pulse Oximetry 99 92 L Intake & Output 07/28/18 07/29/18 07/29/18 18:59 06:59 18:59 Intake Total 2700 / 2700 1880 / 1880 50 / 50 Output Total 2900 / 2900 2430 / 2430 Balance -200 / -200 -550 / -550 50 / 50 Weight 121 kg Intake: IV 1100 / 1100 1100 / 1100 50 / 50 NS Inj 1,000 ML @ 100 mls/hr IV 1000 / 1000 1000 / 1000 .CONT .Q10H [facility] Rx#:[id number] Zosyn 3.375 GM Premix 50 ML @ 100 / 100 100 / 100 50 / 50 100 mls/hr IV.SIG Q6H ENOC Rx#: [id number] Oral 1600 / 1600 780 / 780 Output: Urine 2900 / 2900 2400 / 2400 Wound Drainage 30 / 30 # 1 Abdomen 30 / 30 - Routine Abdominal Exam Present: soft, tenderness (incisional c/d/i) Results - Labs 07/29/18 06:20 07/29/18 06:20 Laboratory Results - last 24 hr 07/29/18 07/29/18 06:20 06:20 WBC 6.8 RBC 4.11 L Hgb 10.9 L Hct 34.3 L MCV 83.5 MCH 26.5 L MCHC 31.7 L RDW 16.3 Plt Count 334 MPV 7.0 Sodium 140 Potassium 3.7 Chloride 102 Carbon Dioxide 32.0 Anion Gap 6 BUN 9 Creatinine 0.76 Estimated GFR Greater than 89 Random Glucose 168 H Calcium 9.0 Total Bilirubin 0.2 Direct Bilirubin 0.1 Indirect Bilirubin 0.1 AST 47 H ALT 111 H Alkaline Phosphatase 120 H Total Protein 6.7 Albumin 2.1 L - Imaging Imaging: ITS Impressions Gallbladder Ultrasound 07/24/18 14:12 CONCLUSION: 1. There is extensive gallbladder wall thickening with pericholecystic fluid and multiple gallstones. There was a positive Peters's sign. Exam would suggest acute cholecystitis. 2. Mildly dilated common bile duct at 8 mm. Assessment and Plan - Assessment (1) Hypertension Code(s): I10 - Essential (primary) hypertension Status: Acute (2) Anxiety Code(s): F41.9 - Anxiety disorder, unspecified Status: Acute (3) Acute cholecystitis Code(s): K81.0 - Acute cholecystitis Status: Acute Plan: 57 year old male with cholecystitis; POD2 lap ender for gangrenous cholecystitis -Advance to soft diet -d/c morphine -OOB as tolerated -DC home if pain controlled on only po meds -f/u with Dr. Fernández 1 week
== END 2018-07-29 12:07 | disposition home or self-care (01) ==
LOC: NEPC 12:39 → NEDA 16:25 → N07 18:32
PROVIDERS: ADMIT Internal Medicine; ATTEND Internal Medicine

== ENCOUNTER 2018-08-19 12:01 | Inpatient (IN) ==
[2018-08-19] MEDS ORDERED: Piperacil/Tazo 3.375 GM Premix 50 ML IV.SIG ONE (12:53)
[2018-08-19] MEDS ORDERED: Sodium Chlor 0.9% Inj 500 ML IV.SIG SCH (13:00)
[2018-08-19] MEDS ORDERED: LORazepam 1 MG Tablet PO ONE (13:11)
[2018-08-19] MEDS ORDERED: Morphine Inj 4 MG/ML Vial IV.PUSH ONE (13:11)
[2018-08-19 13:14] LABS: Baso % (Auto) 0.2 % (0.0-2.0); Eos # (Auto) 0.3 th/mm3 (0.0-0.4); Eos % (Auto) 1.6 % (0.0-4.0); Hematocrit 41.9 % (39.0-51.0); Hemoglobin 13.1 gm/dL (13.0-17.0); Lymph # (Auto) 1.2 th/mm3 (1.0-4.8); Lymph % (Auto) 7.3 % (9.0-44.0); Mean Corpuscular HGB Conc 31.3 % (32.0-36.0); Mean Corpuscular Hemoglobin 25.6 pg (27.0-34.0); Mean Corpuscular Volume 81.7 fL (80.0-100.0); Mean Platelet Volume 7.4 fL (7.0-11.0); Mono # (Auto) 1.1 th/mm3 (0.0-0.9); Mono % (Auto) 6.7 % (0.0-8.0); Neut # (Auto) 14.3 th/mm3 (1.8-7.7); Neut % (Auto) 84.2 % (16.0-70.0); Platelet Count 350 th/mm3 (150-450); Red Blood Count 5.12 mil/mm3 (4.50-5.90); Red Cell Distribution Width 16.3 % (11.6-17.2)
[2018-08-19 13:28] LABS: Alanine Aminotransferase 70 U/L (12-78)
[2018-08-19 13:30] LABS: Alkaline Phosphatase 120 U/L (45-117); Total Protein 8.6 g/dL (6.4-8.2)
[2018-08-19 13:34] LABS: Anion Gap 9 meq/L (5-15); Aspartate Aminotransferase 52 U/L (15-37); Blood Urea Nitrogen 11 mg/dL (7-18); Calcium 9.9 mg/dL (8.5-10.1); Carbon Dioxide 27.6 meq/L (21.0-32.0); Chloride 97 meq/L (98-107); Glomerular Filtration Rate 69 mL/min (>89); Glucose,Random 147 mg/dL (74-106); Potassium 4.7 meq/L (3.5-5.1); Sodium 134 meq/L (136-145)
[2018-08-19] MEDS ORDERED: Sod Chloride 0.9% Inj 1,000 ML IV.SIG SCH (13:45)
[2018-08-19] MEDS ORDERED: Vancomycin Consult Pharmacy OTHER PRN (15:30)
--- NOTE | 2018-08-19 15:33 | ED ---
HPI General Chief complaint: Recheck/Abnormal Lab/Rx Stated complaint: Post op pain / fever Time Seen by Provider: 08/19/18 12:33 Source: patient Mode of arrival: ambulatory Limitations: no limitations History of Present Illness HPI narrative: Patient is a 57-year-old male who comes in complaining of abdominal pain. He had cholecystectomy performed by Dr. Fernández a few weeks ago , that was complicated because it was gangrenous. Patient has a drain in place and was supposed to follow-up with Dr. Fernández, but was late in follow-up. He was seen earlier in the week and had a HIDA scan performed that showed a biliary leak. Patient was informed to come to the ED, however he did not want to, his daughter brought him in today because he has been having increasing pain and fever. He has been sweating, complaining of increased pain. He has not taken anything for pain. Severity is moderate. Related Data Home Medications Medication Instructions Recorded Confirmed quetiapine [Seroquel] 200 mg PO HS 07/24/18 08/19/18 lamotrigine [Lamictal] 100 mg PO DAILY 07/25/18 08/19/18 lisinopril 20 mg PO DAILY 07/25/18 08/19/18 alprazolam 1 mg PO BID PRN 07/29/18 08/19/18 Previous Rx's Medication Instructions Recorded oxycodone-acetaminophen 1 tab PO Q4H PRN #18 tab 07/28/18 Allergies Allergy/AdvReac Type Severity Reaction Status Date / Time No Known Allergies Allergy Verified 07/22/18 05:01 Review of Systems ROS: all other systems reviewed are negative Constitutional Reports chills, Reports excessive sweating and Reports fever(s) ENT Denies dizziness Cardiovascular Denies chest pain and Denies dyspnea Respiratory Denies dyspnea Gastrointestinal Reports abdominal pain, Denies nausea and Denies vomiting Musculoskeletal Denies myalgias and Denies arthralgias Integumentary/Breasts Reports wounds Neurologic Denies focal weakness and Denies numbness [facility] Medical History Medical History Anxiety (Acute) Hypertension (Acute) Surgical History Surgical History History of cholecystectomy (Acute) H/O shoulder surgery (Acute) History of appendectomy (Acute) Family History Family History Other Osteoarthritis Social History Social History Substance History: No History of Abuse Second Hand Smoke Exposure: Yes Smoking Status: Current every day smoker Tobacco Type: Cigarettes How Often Do You Have a Drink Containing Alcohol: Never Recent Travel in [facility] within the Last 8 Weeks: No Recent Out of Country Travel within the Last 8 Weeks: No Immunization History Tetanus Immunization: Unsure Exam Narrative Exam Narrative: GENERAL: Awake and alert, no acute distress. SKIN: Focused skin assessment warm/dry. Healing surgical wounds. There is erythema around the biliary drain. HEAD: Atraumatic. Normocephalic. EYES: Pupils equal and round. No scleral icterus. No injection or drainage. ENT: Mucous membranes pink and moist. NECK: Trachea midline. No JVD. CARDIOVASCULAR: Regular rate and rhythm. No murmur appreciated. RESPIRATORY: No accessory muscle use. Clear to auscultation. Breath sounds equal bilaterally. GASTROINTESTINAL: Abdomen soft, nondistended. Tender to palpation around his surgical site. MUSCULOSKELETAL: No obvious deformities. No clubbing. No cyanosis. No edema. NEUROLOGICAL: Awake and alert. No obvious cranial nerve deficits. Motor grossly within normal limits. Normal speech. PSYCHIATRIC: Appropriate mood and affect; insight and judgment normal. Course Initial Documented Vital Signs Temperature 99.3 F 08/19/18 12:03 Pulse Rate 103 H 08/19/18 12:03 Respiratory Rate 18 08/19/18 12:03 Blood Pressure 138/70 08/19/18 12:03 Pulse Oximetry 96 08/19/18 12:03 Last Documented Vital Signs Temperature 99.2 F 08/19/18 15:30 Pulse Rate 85 08/19/18 15:51 Respiratory Rate 20 08/19/18 15:51 Blood Pressure 121/60 08/19/18 15:51 Pulse Oximetry 90 L 08/19/18 15:30 Medical Decision Making MDM Narrative Medical decision making narrative: Patient is a 57-year-old male comes in complaining of abdominal pain. He was febrile at home, the daughter gave him Tylenol about an hour prior to arrival. IV established, labs sent. Labs show an elevated white blood cell count and a lactic acid of 2.9. Patient given a dose of Zosyn. CT abdomen pelvis performed shows no acute abnormalities. Dr. Fernández would like the patient admitted to medicine with a GI consult for ERCP and stenting. Patient admitted for further management. Medical Screen Exam Complete: Yes Emergency Medical Condition: Yes Differential Diagnosis Differential Diagnosis: Sepsis versus abscess versus surgical complication Medical Records Medical records reviewed: Yes I reviewed the patient's medical records. Lab Data Lab results reviewed: Yes I reviewed the patient's lab results. Result diagrams: 08/19/18 13:00 08/19/18 13:00 Lab Results 08/19/18 08/19/18 08/19/18 Range/Units 12:08 13:00 13:00 WBC 17.0 H (4.0-11.0) th/mm3 RBC 5.12 (4.50-5.90) mil/mm3 Hgb 13.1 (13.0-17.0) gm/dL Hct 41.9 (39.0-51.0) % MCV 81.7 (80.0-100.0) fL MCH 25.6 L (27.0-34.0) pg MCHC 31.3 L (32.0-36.0) % RDW 16.3 (11.6-17.2) % Plt Count 350 (150-450) th/mm3 MPV 7.4 (7.0-11.0) fL Neut % (Auto) 84.2 H (16.0-70.0) % Lymph % (Auto) 7.3 L (9.0-44.0) % [place] % (Auto) 6.7 (0.0-8.0) % Eos % (Auto) 1.6 (0.0-4.0) % Baso % (Auto) 0.2 (0.0-2.0) % Neut # (Auto) 14.3 H (1.8-7.7) th/mm3 Lymph # (Auto) 1.2 (1.0-4.8) th/mm3 [place] # (Auto) 1.1 H (0.0-0.9) th/mm3 Eos # (Auto) 0.3 (0.0-0.4) th/mm3 Baso # (Auto) 0.0 (0.0-0.2) th/mm3 WBC Differential . Differential Comment Auto diff final Sodium 134 L (136-145) meq/L Potassium 4.7 (3.5-5.1) meq/L Chloride 97 L (98-107) meq/L Carbon Dioxide 27.6 (21.0-32.0) meq/L Anion Gap 9 (5-15) meq/L BUN 11 (7-18) mg/dL Creatinine 1.09 (0.60-1.30) mg/dL Estimated GFR 69 L (>89) mL/min Random Glucose 147 H (74-106) mg/dL Lactic Acid 2.9 H (0.4-2.0) mmol/L Calcium 9.9 (8.5-10.1) mg/dL Total Bilirubin 1.4 H (0.2-1.0) mg/dL AST 52 H (15-37) U/L ALT 70 (12-78) U/L Alkaline Phosphatase 120 H (45-117) U/L Total Protein 8.6 H (6.4-8.2) g/dL Albumin 3.0 L (3.4-5.0) g/dL Imaging Data Radiologist's impression: Abdomen/Pelvis CT 08/19/18 13:11 CONCLUSION: 1. Expected postoperative features of cholecystectomy with surgical drain in the cholecystectomy bed. No focal drainable fluid collections or significant free fluid. 2. Diffusely decreased hepatic attenuation consistent with hepatic steatosis versus medical liver disease. 3. Nondistended fluid-filled loops of proximal small bowel which may reflect developing mild adynamic ileus. Discharge Plan Discharge Disposition Patient Disposition: 30 Still Patient Discharge Condition Condition: Stable Discharge Details Diagnosis: Sepsis Physicians Team ED Provider: Svitlana Jack Primary Care Provider: UNKNOWN, Attending Provider: Michael Hernandez Other Providers: Mendoza Ruiz ; Bucky Fernández Status ED Status: Left Department Discharge Information Discharge Date/Time: 08/19/18 16:57
[2018-08-19] MEDS: Vancomycin Inj 1,000 MG in Sodium Chlor 0.9% Inj 250 ML IV.SIG SCH (15:51)
--- NOTE | 2018-08-19 15:53 | CT ---
EXAM DATE: 08/19/2018 3:42 PM EST AGE/SEX: 57 years / Male INDICATIONS: Abdominal pain around recent cholecystectomy area. Fever. CLINICAL DATA: This is the patient's initial encounter. Patient reports that signs and symptoms have been present for 1 week and indicates a pain score of 9/10. MEDICAL/SURGICAL HISTORY: Hypertension. Cholecystectomy. Appendectomy. ORAL CONTRAST: No oral contrast ingested. RADIATION DOSE: 22.12 CTDI (mGy) COMPARISON: [facility] [place], CT ABDOMEN & PELVIS W/O CONTRAST, 07/22/2018. . TECHNIQUE: Multiple contiguous axial images were obtained through the abdomen and pelvis following b olus infusion of 97 ml Omnipaque 350 (iohexol) nonionic water-soluble contrast as a single exam dos e. No oral contrast ingested. Using automated exposure control and adjustment of the mA and/or kV ac cording to patient size, radiation dose was kept as low as reasonably achievable to obtain optimal di agnostic quality images. DICOM format image data is available electronically for review and comparis on. FINDINGS: LOWER LUNGS: Minimal groundglass opacities at the lung bases. LIVER: Diffusely decreased hepatic attenuation without intrahepatic ductal dilatation. Postsurgical features of recent cholecystectomy with surgical drain in the cholecystectomy bed. No focal drainable fluid collections. SPLEEN: Homogeneous density without enlargement. PANCREAS: Unremarkable without mass or calcification. KIDNEYS: Kidneys demonstrate symmetrical enhancement and are symmetrical in size without evidence fo r radiopaque renal calculi or hydronephrosis. ADRENAL GLANDS: Unremarkable. AORTA: Mildly aneurysmal distal abdominal aorta measuring up to 4 cm. BOWEL/MESENTERY: Nondistended fluid-filled loops of small bowel in the left upper quadrant. Bowel lo ops are otherwise unremarkable. No free fluid or drainable fluid collections. ABDOMINAL WALL: Intact. RETROPERITONEUM: No evidence of adenopathy in the retrocrural, para-aortic, or deep pelvic regions. BLADDER: Contours are smooth. REPRODUCTIVE: No abnormal masses or calcifications seen. BONY STRUCTURES: Degenerative spondylosis of the lower lumbar spine. CONCLUSION: 1. Expected postoperative features of cholecystectomy with surgical drain in the cholecystectomy bed . No focal drainable fluid collections or significant free fluid. 2. Diffusely decreased hepatic attenuation consistent with hepatic steatosis versus medical liver di sease. 3. Nondistended fluid-filled loops of proximal small bowel which may reflect developing mild adynami c ileus. Electronically signed by: Keo Dela Cruz MD 08/19/2018 3:52 PM EST
[2018-08-19] MEDS ORDERED: ALPRAZolam 0.25 MG Tablet PO PRN (16:42)
[2018-08-19] MEDS: Sod Chloride 0.9% Inj 1,000 ML IV.CONT SCH ×2 (16:42→17:21)
--- NOTE | 2018-08-19 16:48 | P.HPIM ---
History of Present Illness Primary Care Physician: UNKNOWN History of Present Illness: Mr. Kim is a 57-year-old male. He has a recent history of cholecystitis which was complex cholecystitis and required surgery. Surgery was performed on 07/26/2018. At that time he had cholecystectomy and placement of drain. He discharged with drain in place. He was also discharged on Augmentin and he says he has been on Augmentin throughout course of his recovery including this morning. In the past 48 hours he has developed right-sided abdominal pain and fevers, chills, and diaphoresis episodes. With leukocytosis and tachycardia in addition to biliary infection, this patient meets sepsis criteria at time of admit. No other complaints when seen. No shortness of breath or chest pain. He also reports that he has had cessation of output from his drain. Inpatient Certification: I certify that the inpatient services were ordered in accordance with Medicare regulations governing the order. This includes certification that hospital inpatient services are reasonable and necessary and in the case of services not specified as inpatient-only under 42 CFR 419.22(n), that they are appropriately provided as inpatient services in accordance to with the 2-midnight benchmark under 43 CFR 412.3(e) Estimated Total Length of Stay (Days): 5 Plans for Post Hospital Care: Home Review of Systems Constitutional: No fevers, no chills no night sweats, no fatigue, no weakness Eyes: No eye pain, no blurry vision, no loss of vision ENT: No sore throat, no ear pain, no rhinorrhea Cardiovascular: No chest pain, no tachycardia, no palpitations, no syncope Respiratory: No wheezing, no cough, no shortness of breath Gastrointestinal: Abdominal pain, no black tarry stools, no bright red blood per rectum, no vomiting, no diarrhea Musculoskeletal: No joint pain, no muscle cramps, no stiffness Integumentary: No rash, no ulcers, no drainage Neurologic: No sensory loss, no loss of motor function, no dizziness Psychiatric: No behavioral changes, no hallucinations, no suicidal ideations PMF - History History Provided By: Patient, Family Member - Medical History Medical History: Medical History (Last Reviewed 07/24/18 @ 14:41 by JIAN Ley) Anxiety Hypertension - Surgical History Surgical History: Surgical History (Last Updated 08/19/18 @ 16:39 by Michael Hernandez MD) History of cholecystectomy H/O shoulder surgery History of appendectomy - Family History Family History: Family History (Last Updated 08/19/18 @ 16:39 by Michael Hernandez MD) Other Osteoarthritis - Tobacco History Second Hand Smoke Exposure: Yes Smoking Status: Former smoker Tobacco Type: Cigarettes - Alcohol History How Often Do You Have a Drink Containing Alcohol: Unable to Obtain - Substance Use History Substance History: Past History - Travel History Recent Travel in the [place] Within the Last 8 Weeks: No Recent Travel Out of the Country Within the Last 8 Weeks: No - Immunization History Tetanus Immunization: Unsure Medications and Allergies Active Medications: Active Medications Acetaminophen (Tylenol) 650 mg PO Q4H PRN PRN Reason: Temp > 100.4 Al Hydroxide/Mg Hydroxide (Milk Of Magndiogenes Liq) 30 ml PO Q12H PRN PRN Reason: Mild Constipation Sodium Chloride (Ns Inj) 1,000 mls @ 100 mls/hr IV.CONT .Q10H NEOC Vancomycin HCl 1,000 mg/ (Sodium Chloride) 250 mls @ 250 mls/hr IV.SIG Q12H ENOC Last Admin: 08/19/18 15:51 Dose: 250 mls/hr Piperacillin/Tazobactam/Dextrose (Zosyn 3.375 Gm Premix) 50 mls @ 100 mls/hr IV.SIG Q8H ENOC Ondansetron HCl (Zofran Inj) 4 mg IV.PUSH Q6H PRN PRN Reason: NAUSEA OR VOMITING Pharmacy Profile Note (Vancomycin Consult Pharmacy) 1 each OTHER UNSCH PRN PRN Reason: Pharmacy to dose Sodium Chloride (Ns Flush) 2 ml IV.FLUSH BID ENOC Sodium Chloride (Ns Flush) 2 ml IV.FLUSH PRN PRN PRN Reason: FLUSH AFTER USING IV ACCESS Allergies Allergy/AdvReac Type Severity Reaction Status Date / Time No Known Allergies Allergy Verified 07/22/18 05:01 Home Medications Medication Instructions Recorded Confirmed Type quetiapine [Seroquel] 200 mg PO HS 07/24/18 08/19/18 History lamotrigine [Lamictal] 100 mg PO DAILY 07/25/18 08/19/18 History lisinopril 20 mg PO DAILY 07/25/18 08/19/18 History alprazolam 1 mg PO BID PRN 07/29/18 08/19/18 History Exam Vital signs: Vital Signs 08/19/18 12:03 08/19/18 14:22 08/19/18 15:51 Temperature 99.3 F Pulse Rate 103 H 88 85 Respiratory Rate 18 22 20 Blood Pressure 138/70 133/86 121/60 Pulse Oximetry 96 95 Intake & Output 08/18/18 08/19/18 08/19/18 18:59 06:59 18:59 Intake Total 1550 / 1550 Balance 1550 / 1550 Weight 127.006 kg Intake: IV 1550 / 1550 Zosyn 3.375 GM Premix 50 ML @ 50 / 50 100 mls/hr IV.SIG ONCE ONE Rx#: [id number] NS Inj 1,000 ML @ 1000 mls/hr 1000 / 1000 IV.SIG BOLUS ENOC Rx#:[id number] NS Inj 500 ML @ 1000 mls/hr IV. 500 / 500 SIG BOLUS ENOC Rx#:[id number] Narrative: GENERAL: NAD, A&Ox3 HEAD: Normocephalic. NECK: Supple, trachea midline. No lymphadenopathy. EYES: No scleral icterus. No injection or drainage. CARDIOVASCULAR: Regular rate and rhythm without murmurs, gallops, or rubs. RESPIRATORY: Breath sounds equal bilaterally. No accessory muscle use. GASTROINTESTINAL: Obese abdomen, tenderness with guarding at right side, no pain or guarding with palpation of left side of abdomen. Biliary drain is present. MUSCULOSKELETAL: No cyanosis, or edema. SKIN: Warm and dry. NEURO: No focal neurological deficits. Results - Labs CBC & Chem 7: 08/19/18 13:00 08/19/18 13:00 Labs: Short CBC 08/19/18 Range/Units 13:00 WBC 17.0 H (4.0-11.0) th/mm3 Hgb 13.1 (13.0-17.0) gm/dL Hct 41.9 (39.0-51.0) % Plt Count 350 (150-450) th/mm3 BMP 08/19/18 13:00 Sodium 134 L Potassium 4.7 Chloride 97 L Carbon Dioxide 27.6 BUN 11 Creatinine 1.09 Calcium 9.9 Liver Function 08/19/18 Range/Units 13:00 Total Bilirubin 1.4 H (0.2-1.0) mg/dL AST 52 H (15-37) U/L ALT 70 (12-78) U/L Alkaline Phosphatase 120 H (45-117) U/L Albumin 3.0 L (3.4-5.0) g/dL - Imaging Impressions Abdomen/Pelvis CT 08/19/18 13:11 CONCLUSION: 1. Expected postoperative features of cholecystectomy with surgical drain in the cholecystectomy bed. No focal drainable fluid collections or significant free fluid. 2. Diffusely decreased hepatic attenuation consistent with hepatic steatosis versus medical liver disease. 3. Nondistended fluid-filled loops of proximal small bowel which may reflect developing mild adynamic ileus. Caprini VTE Risk Assessment Caprini VTE Risk Assessment: No/Low Risk (score <= 1) Caprini Risk Assessment Model: Point Value = 1 Point Value = 2 Point Value = 3 Point Value = 5 Age 41-60 Minor surgery BMI > 25 kg/m2 Swollen legs Varicose veins or History of unexplained or recurrent spontaneous Oral contraceptives or hormone replacement Sepsis (< 1 month) Serious lung disease, including pneumonia (< 1 month) Abnormal pulmonary function Acute myocardial infarction Congestive heart failure (< 1 month) History of inflammatory bowel disease Medical patient at bed rest Age 61-74 Arthroscopic surgery Major open surgery (> 45 min) Laparoscopic surgery (> 45 min) Malignancy Confined to bed (> 72 hours) Immobilizing plaster cast Central venous access Age >= 75 History of VTE Family history of VTE Factor V Leiden Prothrombin [id number] Lupus anticoagulant Anticardiolipin antibodies Elevated serum homocysteine Heparin-induced thrombocytopenia Other congenital or acquired thrombophilia Stroke (< 1 month) Elective arthroplasty Hip, pelvis, or leg fracture Acute spinal cord injury (< 1 month) Prophylaxis Regimen: Total Risk Factor Score Risk Level Prophylaxis Regimen 0-1 Low Early ambulation 2 Moderate Order ONE of the following: *Sequential Compression Device (SCD) *Heparin 5000 units SQ BID 3-4 Higher Order ONE of the following medications: *Heparin 5000 units SQ TID *Enoxaparin/Lovenox 40 mg SQ daily (WT < 150 kg, CrCl > 30 mL/min) *Enoxaparin/Lovenox 30 mg SQ daily (WT < 150 kg, CrCl > 10-29 mL/min) *Enoxaparin/Lovenox 30 mg SQ BID (WT < 150 kg, CrCl > 30 mL/min) AND/OR *Sequential Compression Device (SCD) 5 or more Highest Order ONE of the following medications: *Heparin 5000 units SQ TID (Preferred with Epidurals) *Enoxaparin/Lovenox 40 mg SQ daily (WT < 150 kg, CrCl > 30 mL/min) *Enoxaparin/Lovenox 30 mg SQ daily (WT < 150 kg, CrCl > 10-29 mL/min) *Enoxaparin/Lovenox 30 mg SQ BID (WT < 150 kg, CrCl > 30 mL/min) AND *Sequential Compression Device (SCD) Assessment and Plan - Plan 57-year-old male admitted secondary to acute abdominal pain and sepsis status post cholecystectomy with drain present. Status post cholecystectomy Biliary drain obstruction Abdomen infection Sepsis Vancomycin Zosyn Probiotics Percocet for pain Morphine for breakthrough pain IV hydration N.p.o. General Surgery Consult GI Consult Hypertension PRN IV Enalapril Follow blood pressures Adjust treatments as needed Anxiety As needed Xanax DVT prophylaxis SCDs
[2018-08-19] MEDS: oxyCODONE/Acetaminophen 10/325 Tablet PO PRN ×2 (17:20→21:32)
--- NOTE | 2018-08-19 19:03 | P.CON ---
History of Present Illness Consult date: 08/19/18 Reason for Consult: Biliary infection/bile leak Primary Care Provider: UNKNOWN History of Present Illness: Patient is a 57-year-old male who underwent laparoscopic cholecystectomy approximately 3 weeks ago. The patient failed to follow-up 1 week postoperatively and finally presented to the office approximately 2-1/2 weeks postop with persistent drainage of biliary material from his LAURI drain. He underwent HIDA scan on August 14 and after testing suggested a bile leak, undersigned try to have patient return for admission for stent placement. The patient finally presented to the emergency department today after refusing to come in last evening with fever and continued pain. He has undergone workup which demonstrates elevated WBCs, low-grade temperature, minimally elevated liver function tests. There is no evidence of fluid collection, but the drain is draining approximately 40-100 mls yellow green fluid per day. He presents at this time for antibiotics and appropriate management. PMFSH - History History Provided By: Patient - Medical History Medical History: Medical History (Last Reviewed 08/19/18 @ 19:23 by Svitlana Jack MD) Anxiety Hypertension - Surgical History Surgical History: Surgical History (Last Reviewed 08/19/18 @ 19:23 by Svitlana Jack MD) History of cholecystectomy H/O shoulder surgery History of appendectomy - Family History Family History: Family History (Last Reviewed 08/19/18 @ 19:23 by Svitlana Jack MD) Other Osteoarthritis - Tobacco History Second Hand Smoke Exposure: Yes Tobacco Use In Past 30 Days: Yes Smoking Status: Current every day smoker Tobacco Type: Cigarettes - Alcohol History How Often Do You Have a Drink Containing Alcohol: Never - Substance Use History Substance History: No History of Abuse - Travel History Recent Travel in the [facility] Within the Last 8 Weeks: No Recent Travel Out of the Country Within the Last 8 Weeks: No - Immunization History Tetanus Immunization: Never Vaccinated Hx Influenza Vaccine This Season: No Medications and Allergies Active Medications: Active Medications Acetaminophen (Tylenol) 650 mg PO Q4H PRN PRN Reason: Temp > 100.4 Al Hydroxide/Mg Hydroxide (Milk Of Magnesia Liq) 30 ml PO Q12H PRN PRN Reason: Mild Constipation Alprazolam (Xanax) 0.5 mg PO Q4H PRN PRN Reason: ANXIETY Enalaprilat (Vasotec Inj) 1.25 mg IV.PUSH Q6H PRN PRN Reason: SBP>160, DBP>90 Sodium Chloride (Ns Inj) 1,000 mls @ 100 mls/hr IV.CONT .Q10H [facility] Last Admin: 08/19/18 17:21 Dose: 100 mls/hr Vancomycin HCl 1,000 mg/ (Sodium Chloride) 250 mls @ 250 mls/hr IV.SIG Q12H [facility] Last Infusion: 08/19/18 17:55 Dose: Infused Piperacillin/Tazobactam/Dextrose (Zosyn 3.375 Gm Premix) 50 mls @ 100 mls/hr IV.SIG Q8H [facility] Lamotrigine (Lamictal) 100 mg PO DAILY [facility] Lisinopril (Prinivil) 20 mg PO DAILY ENOC Morphine Sulfate (Morphine Inj) 4 mg IV.PUSH Q4H PRN PRN Reason: BREAKTHROUGH PAIN Ondansetron HCl (Zofran Inj) 4 mg IV.PUSH Q6H PRN PRN Reason: NAUSEA OR VOMITING Oxycodone/Acetaminophen (Percocet 10/325 Mg) 1 tab PO Q4H PRN PRN Reason: Pain 7 to 10 Last Admin: 08/19/18 17:20 Dose: 1 tab Oxycodone/Acetaminophen (Percocet 5/325 Mg) 1 tab PO Q4H PRN PRN Reason: Pain 3 to 6 Pharmacy Profile Note (Vancomycin Consult Pharmacy) 1 each OTHER UNSCH PRN PRN Reason: Pharmacy to dose Quetiapine Fumarate (Seroquel) 200 mg PO HS EONC Sodium Chloride (Ns Flush) 2 ml IV.FLUSH BID ENOC Sodium Chloride (Ns Flush) 2 ml IV.FLUSH PRN PRN PRN Reason: FLUSH AFTER USING IV ACCESS Allergies Allergy/AdvReac Type Severity Reaction Status Date / Time No Known Allergies Allergy Verified 07/22/18 05:01 Home Medications Medication Instructions Recorded Confirmed Type quetiapine [Seroquel] 200 mg PO HS 07/24/18 08/19/18 History lamotrigine [Lamictal] 100 mg PO DAILY 07/25/18 08/19/18 History lisinopril 20 mg PO DAILY 07/25/18 08/19/18 History alprazolam 1 mg PO BID PRN 07/29/18 08/19/18 History Physical Exam Vital signs: Vital Signs 08/19/18 12:03 08/19/18 14:22 08/19/18 15:30 Temperature 99.3 F 99.2 F Pulse Rate 103 H 88 90 Respiratory Rate 18 Blood Pressure 138/70 133/86 139/75 Pulse Oximetry 96 95 90 L 08/19/18 15:51 Temperature Pulse Rate 85 Respiratory Rate 20 Blood Pressure 121/60 Pulse Oximetry Intake & Output 08/18/18 08/19/18 08/19/18 18:59 06:59 18:59 Intake Total 1800 / 1800 Balance 1800 / 1800 Weight 139 kg Intake: IV 1800 / 1800 Zosyn 3.375 GM Premix 50 ML @ 50 / 50 100 mls/hr IV.SIG ONCE ONE Rx#: [id number] NS Inj 1,000 ML @ 1000 mls/hr 1000 / 1000 IV.SIG BOLUS ENOC Rx#:[id number] NS Inj 500 ML @ 1000 mls/hr IV. 500 / 500 SIG BOLUS ENOC Rx#:[id number] Vancomycin Inj 1,000 MG In NS 250 / 250 Inj 250 ML @ 250 mls/hr IV.SIG Q12H [facility] Rx#:[id number] Oral 0 / 0 Other: # Bowel Movements 0 Weight On Admission 139 kg - Constitutional mild distress - Routine HEENT Exam Head: Present: normocephalic, atraumatic - Routine Respiratory Exam Present: decreased breath sounds, CTA bilaterally - Routine Abdominal Exam Present: soft, distended, guarding (Near drain site) - Routine Psychiatric Exam Present: anxious Results - Labs CBC & Chem 7: 08/20/18 06:54 08/21/18 13:43 Labs: Laboratory Results - last 24 hr 08/19/18 08/19/18 08/19/18 12:08 13:00 13:00 WBC 17.0 H RBC 5.12 Hgb 13.1 Hct 41.9 MCV 81.7 MCH 25.6 L MCHC 31.3 L RDW 16.3 Plt Count 350 MPV 7.4 Neut % (Auto) 84.2 H Lymph % (Auto) 7.3 L [place] % (Auto) 6.7 Eos % (Auto) 1.6 Baso % (Auto) 0.2 Neut # (Auto) 14.3 H Lymph # (Auto) 1.2 [place] # (Auto) 1.1 H Eos # (Auto) 0.3 Baso # (Auto) 0.0 WBC Differential . Differential Comment Auto diff final Sodium 134 L Potassium 4.7 Chloride 97 L Carbon Dioxide 27.6 Anion Gap 9 BUN 11 Creatinine 1.09 Estimated GFR 69 L Random Glucose 147 H Lactic Acid 2.9 H Calcium 9.9 Total Bilirubin 1.4 H AST 52 H ALT 70 Alkaline Phosphatase 120 H Total Protein 8.6 H Albumin 3.0 L - Imaging Impressions Abdomen/Pelvis CT 08/19/18 13:11 CONCLUSION: 1. Expected postoperative features of cholecystectomy with surgical drain in the cholecystectomy bed. No focal drainable fluid collections or significant free fluid. 2. Diffusely decreased hepatic attenuation consistent with hepatic steatosis versus medical liver disease. 3. Nondistended fluid-filled loops of proximal small bowel which may reflect developing mild adynamic ileus. Assessment and Plan - Assessment (1) Sepsis Code(s): A41.9 - Sepsis, unspecified organism Status: Acute Plan: Antibiotics GI consult for stent placement We will leave drain in until LAURI output drops significantly; I expect this to occur after the stent is placed to allow for preferential drainage through the common bile duct rather than through the cystic duct stump. - Attending Attestation I attest that I had a [id number] encounter with the patient on the same day, and personally performed and documented my assessment and findings in the medical record. The following services were provided during this hospital visit: Chart data review, vital sign assessments/reviewing monitor data Review of consultation notes if present Medication orders/review and/or management Ordering and/or reviewing lab tests Ordering and/or interpreting/reviewing x-rays and/or diagnostic studies Care of the patient and discussion of the patient with the care team Documentation time To help prompt me to consider important information that might be impacting today's encounter and assessment, Information from prior notes written by myself or my colleagues may have been "brought forward/copy and pasted" into today's note. (1) Sepsis Qualifiers: Sepsis type: sepsis due to unspecified organism Qualified Code(s): A41.9 - Sepsis, unspecified organism
[2018-08-19] MEDS: ALPRAZolam 0.25 MG Tablet PO PRN ×2 (19:18→23:33)
[2018-08-19] MEDS: Piperacil/Tazo 3.375 GM Premix 50 ML IV.SIG SCH (21:33)
[2018-08-19] MEDS: Sodium Chloride 0.9% 2 ML Flush BID IV.FLUSH SCH (21:45)
[2018-08-19] MEDS: Morphine Inj 4 MG/ML Vial IV.PUSH PRN (23:16)
[2018-08-20] MEDS: oxyCODONE/Acetaminophen 10/325 Tablet PO PRN ×5 (01:36→23:42)
[2018-08-20] MEDS: Sod Chloride 0.9% Inj 1,000 ML IV.CONT SCH ×5 (01:37→22:00)
[2018-08-20] MEDS: Vancomycin Inj 1,000 MG in Sodium Chlor 0.9% Inj 250 ML IV.SIG SCH (03:25)
[2018-08-20] MEDS: Morphine Inj 4 MG/ML Vial IV.PUSH PRN ×2 (03:36→20:31)
[2018-08-20] MEDS: ALPRAZolam 0.25 MG Tablet PO PRN ×5 (04:39→23:41)
[2018-08-20] MEDS: Piperacil/Tazo 3.375 GM Premix 50 ML IV.SIG SCH ×3 (04:41→20:24)
[2018-08-20 07:23] LABS: Baso % (Auto) 0.5 % (0.0-2.0); Eos # (Auto) 0.8 th/mm3 (0.0-0.4); Eos % (Auto) 8.3 % (0.0-4.0); Hematocrit 32.1 % (39.0-51.0); Hemoglobin 10.7 gm/dL (13.0-17.0); Lymph # (Auto) 1.7 th/mm3 (1.0-4.8); Mean Corpuscular HGB Conc 33.3 % (32.0-36.0); Mean Corpuscular Hemoglobin 26.7 pg (27.0-34.0); Mean Corpuscular Volume 80.3 fL (80.0-100.0); Mean Platelet Volume 7.3 fL (7.0-11.0); Mono # (Auto) 0.9 th/mm3 (0.0-0.9); Mono % (Auto) 8.6 % (0.0-8.0); Neut # (Auto) 6.6 th/mm3 (1.8-7.7); Neut % (Auto) 65.6 % (16.0-70.0); Platelet Count 227 th/mm3 (150-450); Red Blood Count 3.99 mil/mm3 (4.50-5.90); Red Cell Distribution Width 16.4 % (11.6-17.2); White Blood Count 10.1 th/mm3 (4.0-11.0)
[2018-08-20 07:46] LABS: Albumin 2.5 g/dL (3.4-5.0); Anion Gap 6 meq/L (5-15); Aspartate Aminotransferase 19 U/L (15-37); Blood Urea Nitrogen 16 mg/dL (7-18); Carbon Dioxide 27.9 meq/L (21.0-32.0); Chloride 99 meq/L (98-107); Glomerular Filtration Rate 51 mL/min (>89); Glucose,Random 111 mg/dL (74-106); Potassium 3.8 meq/L (3.5-5.1); Sodium 133 meq/L (136-145)
[2018-08-20 07:47] LABS: Alanine Aminotransferase 40 U/L (12-78)
[2018-08-20 07:48] LABS: Alkaline Phosphatase 91 U/L (45-117); Vancomycin,Random 17.3 Comment
[2018-08-20] MEDS: lamoTRIgine 100 MG Tablet PO SCH (09:04)
[2018-08-20] MEDS: Lisinopril 20 MG Tablet PO SCH (09:05)
[2018-08-20] MEDS: Sodium Chloride 0.9% 2 ML Flush BID IV.FLUSH SCH ×2 (09:05→20:24)
--- NOTE | 2018-08-20 09:08 | P.PN ---
Subjective Interval history: Mr. Kim is a 57-year-old male. He has a recent history of cholecystitis which was complex cholecystitis and required surgery. Surgery was performed on 07/26/2018. At that time he had cholecystectomy and placement of drain. He discharged with drain in place. He was also discharged on Augmentin and he says he has been on Augmentin throughout course of his recovery including this morning. In the past 48 hours he has developed right-sided abdominal pain and fevers, chills, and diaphoresis episodes. With leukocytosis and tachycardia in addition to biliary infection, this patient meets sepsis criteria at time of admit. No other complaints when seen. No shortness of breath or chest pain. He also reports that he has had cessation of output from his drain. 08/20: Seen by General product info specialist recommended to consult GI specialist for stent placement, leave drain in until LAURI output drops significantly, expect this to occur after the stent is placed to allow for preferential drainage through the common bile duct rather than through the cystic duct stump. no nausea, vomit or diarrhea. seen early in am in his bedroom and discussed with nurse Miss Asencio Physical Exam Vital signs: Vital Signs 08/19/18 12:03 08/19/18 14:22 08/19/18 15:30 Temperature 99.3 F 99.2 F Pulse Rate 103 H 88 90 Respiratory Rate 18 Blood Pressure 138/70 133/86 139/75 Pulse Oximetry 96 95 90 L 08/19/18 15:51 08/19/18 20:00 08/20/18 00:00 Temperature 98.9 F 98.8 F Pulse Rate 85 82 105 H Respiratory Rate 20 20 20 Blood Pressure 121/60 125/66 128/69 Pulse Oximetry 94 L 94 L 08/20/18 04:00 Temperature 98.6 F Pulse Rate 92 H Respiratory Rate 20 Blood Pressure 115/65 Pulse Oximetry 93 L Intake & Output 08/19/18 08/20/18 08/20/18 18:59 06:59 18:59 Intake Total 1800 / 1800 350 / 350 Balance 1800 / 1800 350 / 350 Weight 139 kg 139.4 kg Intake: IV 1800 / 1800 350 / 350 Zosyn 3.375 GM Premix 50 ML @ 50 / 50 100 / 100 100 mls/hr IV.SIG Q8H [facility] Rx#: [id number] NS Inj 1,000 ML @ 1000 mls/hr 1000 / 1000 IV.SIG BOLUS ENOC Rx#:[id number] NS Inj 500 ML @ 1000 mls/hr IV. 500 / 500 SIG BOLUS ENOC Rx#:[id number] Vancomycin Inj 1,000 MG In NS 250 / 250 250 / 250 Inj 250 ML @ 250 mls/hr IV.SIG Q12H [facility] Rx#:[id number] Oral 0 / 0 0 / 0 Other: # Voids 2 # Bowel Movements 0 Weight On Admission 139 kg Narrative: GENERAL: Morbid obesity, no acute distress HEAD: Normocephalic. NECK: Supple, trachea midline. No lymphadenopathy. EYES: No scleral icterus. No injection or drainage. CARDIOVASCULAR: Regular rate and rhythm without murmurs, gallops, or rubs. RESPIRATORY: Breath sounds equal bilaterally. No accessory muscle use. GASTROINTESTINAL: Obese abdomen, tenderness with guarding at right side, no pain or guarding with palpation of left side of abdomen. Biliary drain is present. MUSCULOSKELETAL: No cyanosis, or edema. SKIN: Warm and dry. NEURO: No focal neurological deficits. Results - Labs CBC & Chem 7: 08/20/18 06:54 08/20/18 06:54 Laboratory Results - last 24 hr 08/19/18 08/19/18 08/19/18 12:08 13:00 13:00 WBC 17.0 H RBC 5.12 Hgb 13.1 Hct 41.9 MCV 81.7 MCH 25.6 L MCHC 31.3 L RDW 16.3 Plt Count 350 MPV 7.4 Neut % (Auto) 84.2 H Lymph % (Auto) 7.3 L [place] % (Auto) 6.7 Eos % (Auto) 1.6 Baso % (Auto) 0.2 Neut # (Auto) 14.3 H Lymph # (Auto) 1.2 [place] # (Auto) 1.1 H Eos # (Auto) 0.3 Baso # (Auto) 0.0 WBC Differential . Differential Comment Auto diff final Sodium 134 L Potassium 4.7 Chloride 97 L Carbon Dioxide 27.6 Anion Gap 9 BUN 11 Creatinine 1.09 Estimated GFR 69 L Random Glucose 147 H Lactic Acid 2.9 H Calcium 9.9 Total Bilirubin 1.4 H AST 52 H ALT 70 Alkaline Phosphatase 120 H Total Protein 8.6 H Albumin 3.0 L Random Vancomycin 08/20/18 08/20/18 06:54 06:54 WBC 10.1 RBC 3.99 L Hgb 10.7 L D Hct 32.1 L MCV 80.3 MCH 26.7 L MCHC 33.3 RDW 16.4 Plt Count 227 D MPV 7.3 Neut % (Auto) 65.6 Lymph % (Auto) 17.0 [place] % (Auto) 8.6 H Eos % (Auto) 8.3 H Baso % (Auto) 0.5 Neut # (Auto) 6.6 Lymph # (Auto) 1.7 [place] # (Auto) 0.9 Eos # (Auto) 0.8 H Baso # (Auto) 0.0 WBC Differential . Differential Comment Auto diff final Sodium 133 L Potassium 3.8 D Chloride 99 Carbon Dioxide 27.9 Anion Gap 6 BUN 16 Creatinine 1.41 H Estimated GFR 51 L Random Glucose 111 H Lactic Acid Calcium 9.0 D Total Bilirubin 1.3 H AST 19 ALT 40 Alkaline Phosphatase 91 Total Protein 7.0 D Albumin 2.5 L Random Vancomycin 17.3 - Imaging Impressions Abdomen/Pelvis CT 08/19/18 13:11 CONCLUSION: 1. Expected postoperative features of cholecystectomy with surgical drain in the cholecystectomy bed. No focal drainable fluid collections or significant free fluid. 2. Diffusely decreased hepatic attenuation consistent with hepatic steatosis versus medical liver disease. 3. Nondistended fluid-filled loops of proximal small bowel which may reflect developing mild adynamic ileus. Assessment and Plan - Plan 57-year-old male admitted secondary to acute abdominal pain and sepsis status post cholecystectomy with drain present. Status post cholecystectomy Biliary drain obstruction Abdomen infection Sepsis Vancomycin Zosyn Probiotics Percocet for pain Morphine for breakthrough pain IV hydration N.p.o. 08/20: Seen by General product info specialist recommended to consult GI specialist for stent placement, leave drain in until LAURI output drops significantly, expect this to occur after the stent is placed to allow for preferential drainage through the common bile duct rather than through the cystic duct stump GI Consult Hypertension PRN IV Enalapril Follow blood pressures Adjust treatments as needed Anxiety As needed Xanax Morbid Obesity Strongly recommended diet and exercise as outpatient. DVT prophylaxis SCDs Code Status: Full code. Discussed Condition With: Patient and Nurse Miss Asencio Discharge Planning: Once cleared by specialists.
--- NOTE | 2018-08-20 11:37 | P.PNGS ---
Subjective Patient reports: still having pain, fever Physical Exam Vital signs: Vital Signs 08/19/18 12:03 08/19/18 14:22 08/19/18 15:30 Temperature 99.3 F 99.2 F Pulse Rate 103 H 88 90 Respiratory Rate 18 22 18 Blood Pressure 138/70 133/86 139/75 Pulse Oximetry 96 95 90 L 08/19/18 15:51 08/19/18 20:00 08/20/18 00:00 Temperature 98.9 F 98.8 F Pulse Rate 85 82 105 H Respiratory Rate 20 20 20 Blood Pressure 121/60 125/66 128/69 Pulse Oximetry 94 L 94 L 08/20/18 04:00 08/20/18 08:00 Temperature 98.6 F 98.5 F Pulse Rate 92 H 87 Respiratory Rate 20 16 Blood Pressure 115/65 133/65 Pulse Oximetry 93 L 93 L Intake & Output 08/19/18 08/20/18 08/20/18 18:59 06:59 18:59 Intake Total 1800 / 1800 350 / 350 Balance 1800 / 1800 350 / 350 Weight 139 kg 139.4 kg Intake: IV 1800 / 1800 350 / 350 Zosyn 3.375 GM Premix 50 ML @ 50 / 50 100 / 100 100 mls/hr IV.SIG Q8H [facility] Rx#: [id number] NS Inj 1,000 ML @ 1000 mls/hr 1000 / 1000 IV.SIG BOLUS ENOC Rx#:[id number] NS Inj 500 ML @ 1000 mls/hr IV. 500 / 500 SIG BOLUS ENOC Rx#:[id number] Vancomycin Inj 1,000 MG In NS 250 / 250 250 / 250 Inj 250 ML @ 250 mls/hr IV.SIG Q12H [facility] Rx#:[id number] Oral 0 / 0 0 / 0 Other: # Voids 2 # Bowel Movements 0 Weight On Admission 139 kg - Routine Abdominal Exam Present: soft, normoactive bowel sounds, tenderness, drain Comments: drain with bile, stripped Results - Labs 08/20/18 06:54 08/20/18 06:54 Laboratory Results - last 24 hr 08/19/18 08/19/18 08/19/18 12:08 13:00 13:00 WBC 17.0 H RBC 5.12 Hgb 13.1 Hct 41.9 MCV 81.7 MCH 25.6 L MCHC 31.3 L RDW 16.3 Plt Count 350 MPV 7.4 Neut % (Auto) 84.2 H Lymph % (Auto) 7.3 L [place] % (Auto) 6.7 Eos % (Auto) 1.6 Baso % (Auto) 0.2 Neut # (Auto) 14.3 H Lymph # (Auto) 1.2 [place] # (Auto) 1.1 H Eos # (Auto) 0.3 Baso # (Auto) 0.0 WBC Differential . Differential Comment Auto diff final Sodium 134 L Potassium 4.7 Chloride 97 L Carbon Dioxide 27.6 Anion Gap 9 BUN 11 Creatinine 1.09 Estimated GFR 69 L Random Glucose 147 H Lactic Acid 2.9 H Calcium 9.9 Total Bilirubin 1.4 H AST 52 H ALT 70 Alkaline Phosphatase 120 H Total Protein 8.6 H Albumin 3.0 L Random Vancomycin 08/20/18 08/20/18 06:54 06:54 WBC 10.1 RBC 3.99 L Hgb 10.7 L D Hct 32.1 L MCV 80.3 MCH 26.7 L MCHC 33.3 RDW 16.4 Plt Count 227 D MPV 7.3 Neut % (Auto) 65.6 Lymph % (Auto) 17.0 [place] % (Auto) 8.6 H Eos % (Auto) 8.3 H Baso % (Auto) 0.5 Neut # (Auto) 6.6 Lymph # (Auto) 1.7 [place] # (Auto) 0.9 Eos # (Auto) 0.8 H Baso # (Auto) 0.0 WBC Differential . Differential Comment Auto diff final Sodium 133 L Potassium 3.8 D Chloride 99 Carbon Dioxide 27.9 Anion Gap 6 BUN 16 Creatinine 1.41 H Estimated GFR 51 L Random Glucose 111 H Lactic Acid Calcium 9.0 D Total Bilirubin 1.3 H AST 19 ALT 40 Alkaline Phosphatase 91 Total Protein 7.0 D Albumin 2.5 L Random Vancomycin 17.3 - Imaging Imaging: ITS Impressions Abdomen/Pelvis CT 08/19/18 13:11 CONCLUSION: 1. Expected postoperative features of cholecystectomy with surgical drain in the cholecystectomy bed. No focal drainable fluid collections or significant free fluid. 2. Diffusely decreased hepatic attenuation consistent with hepatic steatosis versus medical liver disease. 3. Nondistended fluid-filled loops of proximal small bowel which may reflect developing mild adynamic ileus. Assessment and Plan - Assessment (1) Sepsis Code(s): A41.9 - Sepsis, unspecified organism Status: Acute - Plan awaiting ERCP with stent placement continue ABX ok for diet until GI procedure (1) Sepsis Qualifiers: Sepsis type: sepsis due to unspecified organism Qualified Code(s): A41.9 - Sepsis, unspecified organism
--- NOTE | 2018-08-20 13:22 | P.CONGI ---
History of Present Illness Consult date: 08/20/18 Consult reason: Abdominal pain/sepsis Suspected biliary of infection/postoperative cholecystectomy Possible need for ERCP with stent placement Chief complaint: Sepsis History of Present Illness: This patient is a 57-year-old male with a recent history of cholecystitis and cholecystectomy done on 07/26/2018. Past medical history significant for anxiety and hypertension. Surgical history includes cholecystectomy, shoulder surgery and appendectomy. LAURI drain was placed at the time of the cholecystectomy on 07/26/2018. Patient was then discharged home with a drain in place. He was also given a prescription for Augmentin as the antibiotic. Patient presented to the emergency room at [facility] with complaint of right-sided abdominal pain with fevers and chills for 2 days. Patient also endorses noted decreased output from LAURI drain over the last 2 days. Upon consultation, patient reports right-sided abdominal pain surrounding LAURI site and noted decreased amounts of drainage over the last 48 hours. Patient endorses fevers with chills 101 F. Patient denies ever having had an EGD or colonoscopy in the past. States he smokes 1 pack/day and does not use alcohol products. Our service has been consulted to to evaluate patient for possible ERCP with stent placement <Whit Cox - Last Filed: 08/20/18 13:12> Review of Systems All other systems reviewed negative except as stated in HPI <Whit Cox - Last Filed: 08/20/18 13:12> PMFSH - History History Provided By: Patient - Medical History Medical History: Medical History (Last Reviewed 08/19/18 @ 19:23 by Svitlana Jack MD) Anxiety Hypertension - Surgical History Surgical History: Surgical History (Last Reviewed 08/19/18 @ 19:23 by Svitlana Jack MD) History of cholecystectomy H/O shoulder surgery History of appendectomy - Family History Family History: Family History (Last Reviewed 08/19/18 @ 19:23 by Svitlana Jack MD) Other Osteoarthritis - Tobacco History Second Hand Smoke Exposure: Yes Tobacco Use In Past 30 Days: Yes Smoking Status: Current every day smoker Tobacco Type: Cigarettes - Alcohol History How Often Do You Have a Drink Containing Alcohol: Never - Substance Use History Substance History: No History of Abuse - Travel History Recent Travel in the [place] Within the Last 8 Weeks: No Recent Travel Out of the Country Within the Last 8 Weeks: No - Immunization History Tetanus Immunization: Unsure Hx Influenza Vaccine This Season: No <CoxWhit - Last Filed: 08/20/18 13:12> - Medical History Medical History: Medical History (Last Reviewed 08/19/18 @ 19:23 by Svitlana Jack MD) Anxiety Hypertension - Surgical History Surgical History: Surgical History (Last Reviewed 08/19/18 @ 19:23 by Svitlana Jack MD) History of cholecystectomy H/O shoulder surgery History of appendectomy - Family History Family History: Family History (Last Reviewed 08/19/18 @ 19:23 by Svitlana Jack MD) Other Osteoarthritis <Mendoza Ruiz - Last Filed: 08/21/18 12:45> Medications and Allergies Active Medications: Active Medications Acetaminophen (Tylenol) 650 mg PO Q4H PRN PRN Reason: Temp > 100.4 Al Hydroxide/Mg Hydroxide (Milk Of Magndiogenes Liq) 30 ml PO Q12H PRN PRN Reason: Mild Constipation Alprazolam (Xanax) 0.5 mg PO Q4H PRN PRN Reason: ANXIETY Last Admin: 08/20/18 13:06 Dose: 0.5 mg Enalaprilat (Vasotec Inj) 1.25 mg IV.PUSH Q6H PRN PRN Reason: SBP>160, DBP>90 Sodium Chloride (Ns Inj) 1,000 mls @ 100 mls/hr IV.CONT .Q10H [facility] Last Admin: 08/20/18 13:01 Dose: Not Given Piperacillin/Tazobactam/Dextrose (Zosyn 3.375 Gm Premix) 50 mls @ 100 mls/hr IV.SIG Q8H [facility] Last Admin: 08/20/18 13:02 Dose: 100 mls/hr Vancomycin HCl 1,500 mg/ (Sodium Chloride) 515 mls @ 250 mls/hr IV.SIG ONCE ONE Stop: 08/20/18 16:03 Lamotrigine (Lamictal) 100 mg PO DAILY [facility] Last Admin: 08/20/18 09:04 Dose: 100 mg Lisinopril (Prinivil) 20 mg PO DAILY [facility] Last Admin: 08/20/18 09:05 Dose: 20 mg Morphine Sulfate (Morphine Inj) 4 mg IV.PUSH Q4H PRN PRN Reason: BREAKTHROUGH PAIN Last Admin: 08/20/18 03:36 Dose: 4 mg Ondansetron HCl (Zofran Inj) 4 mg IV.PUSH Q6H PRN PRN Reason: NAUSEA OR VOMITING Oxycodone/Acetaminophen (Percocet 10/325 Mg) 1 tab PO Q4H PRN PRN Reason: Pain 7 to 10 Last Admin: 08/20/18 13:06 Dose: 1 tab Oxycodone/Acetaminophen (Percocet 5/325 Mg) 1 tab PO Q4H PRN PRN Reason: Pain 3 to 6 Pharmacy Profile Note (Vancomycin Consult Pharmacy) 1 each OTHER UNSCH PRN PRN Reason: Pharmacy to dose Quetiapine Fumarate (Seroquel) 200 mg PO HS [facility] Last Admin: 08/19/18 21:03 Dose: 200 mg Sodium Chloride (Ns Flush) 2 ml IV.FLUSH BID [facility] Last Admin: 08/20/18 09:05 Dose: Not Given Sodium Chloride (Ns Flush) 2 ml IV.FLUSH PRN PRN PRN Reason: FLUSH AFTER USING IV ACCESS <Whit Cox - Last Filed: 08/20/18 13:12> Active Medications: Active Medications Acetaminophen (Tylenol) 650 mg PO Q4H PRN PRN Reason: Temp > 100.4 Al Hydroxide/Mg Hydroxide (Milk Of Magnesia Liq) 30 ml PO Q12H PRN PRN Reason: Mild Constipation Alprazolam (Xanax) 0.5 mg PO Q4H PRN PRN Reason: ANXIETY Last Admin: 08/21/18 12:43 Dose: 0.5 mg Enalaprilat (Vasotec Inj) 1.25 mg IV.PUSH Q6H PRN PRN Reason: SBP>160, DBP>90 Sodium Chloride (Ns Inj) 1,000 mls @ 100 mls/hr IV.CONT .Q10H [facility] Last Infusion: 08/21/18 06:12 Dose: Infused Piperacillin/Tazobactam/Dextrose (Zosyn 3.375 Gm Premix) 50 mls @ 100 mls/hr IV.SIG Q8H [facility] Last Infusion: 08/21/18 05:00 Dose: Infused Sodium Chloride (Ns Inj) 1,000 mls @ 75 mls/hr IV.CONT .[id number] [facility] Last Admin: 08/21/18 10:15 Dose: 75 mls/hr Lamotrigine (Lamictal) 100 mg PO DAILY [facility] Last Admin: 08/21/18 08:44 Dose: 100 mg Lisinopril (Prinivil) 20 mg PO DAILY [facility] Last Admin: 08/21/18 08:44 Dose: 20 mg Morphine Sulfate (Morphine Inj) 4 mg IV.PUSH Q4H PRN PRN Reason: BREAKTHROUGH PAIN Last Admin: 08/21/18 06:42 Dose: 4 mg Ondansetron HCl (Zofran Inj) 4 mg IV.PUSH Q6H PRN PRN Reason: NAUSEA OR VOMITING Oxycodone/Acetaminophen (Percocet 10/325 Mg) 1 tab PO Q4H PRN PRN Reason: Pain 7 to 10 Last Admin: 08/21/18 12:43 Dose: 1 tab Oxycodone/Acetaminophen (Percocet 5/325 Mg) 1 tab PO Q4H PRN PRN Reason: Pain 3 to 6 Pharmacy Profile Note (Vancomycin Consult Pharmacy) 1 each OTHER UNSCH PRN PRN Reason: Pharmacy to dose Quetiapine Fumarate (Seroquel) 200 mg PO [facility] Last Admin: 08/20/18 20:23 Dose: 200 mg Sodium Chloride (Ns Flush) 2 ml IV.FLUSH BID [facility] Last Admin: 08/21/18 08:44 Dose: 2 ml Sodium Chloride (Ns Flush) 2 ml IV.FLUSH PRN PRN PRN Reason: FLUSH AFTER USING IV ACCESS <Mendoza Ruiz - Last Filed: 08/21/18 12:45> Allergies Allergy/AdvReac Type Severity Reaction Status Date / Time No Known Allergies Allergy Verified 07/22/18 05:01 Home Medications Medication Instructions Recorded Confirmed Type quetiapine [Seroquel] 200 mg PO HS 07/24/18 08/19/18 History lamotrigine [Lamictal] 100 mg PO DAILY 07/25/18 08/19/18 History lisinopril 20 mg PO DAILY 07/25/18 08/19/18 History alprazolam 1 mg PO BID PRN 07/29/18 08/19/18 History Exam Vital signs: Vital Signs 08/19/18 14:22 08/19/18 15:30 08/19/18 15:51 Temperature 99.2 F Pulse Rate 88 90 85 Respiratory Rate 22 18 20 Blood Pressure 133/86 139/75 121/60 Pulse Oximetry 95 90 L 08/19/18 20:00 08/20/18 00:00 08/20/18 04:00 Temperature 98.9 F 98.8 F 98.6 F Pulse Rate 82 105 H 92 H Respiratory Rate 20 20 20 Blood Pressure 125/66 128/69 115/65 Pulse Oximetry 94 L 94 L 93 L 08/20/18 08:00 Temperature 98.5 F Pulse Rate 87 Respiratory Rate 16 Blood Pressure 133/65 Pulse Oximetry 93 L Intake & Output 08/19/18 08/20/18 08/20/18 18:59 06:59 18:59 Intake Total 1800 / 1800 350 / 350 Balance 1800 / 1800 350 / 350 Weight 139 kg 139.4 kg Intake: IV 1800 / 1800 350 / 350 Zosyn 3.375 GM Premix 50 ML @ 50 / 50 100 / 100 100 mls/hr IV.SIG Q8H [facility] Rx#: [id number] NS Inj 1,000 ML @ 1000 mls/hr 1000 / 1000 IV.SIG BOLUS [facility] Rx#:[id number] NS Inj 500 ML @ 1000 mls/hr IV. 500 / 500 SIG BOLUS [facility] Rx#:[id number] Vancomycin Inj 1,000 MG In NS 250 / 250 250 / 250 Inj 250 ML @ 250 mls/hr IV.SIG Q12H [facility] Rx#:[id number] Oral 0 / 0 0 / 0 Other: # Voids 2 # Bowel Movements 0 Weight On Admission 139 kg - Constitutional no acute distress - Routine HEENT Exam Head: Present: normocephalic - Routine Neck Exam Present: supple - Routine Respiratory Exam Present: CTA bilaterally. Absent: accessory muscle use - Routine Cardiovascular Exam Present: RRR - Routine Abdominal Exam Present: soft, normoactive bowel sounds, tenderness. Absent: guarding, firm Comments: Right upper quadrant/right-sided abdominal tenderness with palpation on exam. LAURI drain noted to right abdomen. Small amount of redness noted at insertion site Scant amount of rubio colored drainage in collection bulb - Routine Skin Exam Present: dry, warm. Absent: pallor - Routine Neurological Exam Present: alert - Routine Psychiatric Exam Present: normal affect, cooperative <Cox,Whit - Last Filed: 08/20/18 13:12> Vital signs: Vital Signs 08/20/18 16:00 08/20/18 20:00 08/21/18 00:00 Temperature 97.9 F 99.6 F 99.1 F Pulse Rate 75 81 94 H Respiratory Rate 18 19 17 Blood Pressure 105/64 112/51 L 142/69 H Pulse Oximetry 92 L 90 L 94 L 08/21/18 00:09 08/21/18 00:15 08/21/18 04:00 Temperature 97.6 F Pulse Rate 96 H 77 Respiratory Rate 18 Blood Pressure 122/60 Pulse Oximetry 93 L 93 L 08/21/18 05:56 08/21/18 08:00 Temperature 99.2 F Pulse Rate 88 Respiratory Rate 18 20 Blood Pressure 129/77 Pulse Oximetry 93 L Intake & Output 08/20/18 08/21/18 08/21/18 18:59 06:59 18:59 Intake Total 1565 / 1565 3350 / 3350 250 / 250 Balance 1565 / 1565 3350 / 3350 250 / 250 Weight 126.9 kg Intake: IV 1565 / 1565 1150 / 1150 250 / 250 NS Inj 1,000 ML @ 100 mls/hr IV 1000 / 1000 1000 / 1000 .CONT .Q10H [facility] Rx#:[id number] Zosyn 3.375 GM Premix 50 ML @ 50 / 50 100 / 100 100 mls/hr IV.SIG Q8H [facility] Rx#: [id number] NS Inj 250 ML @ 500 mls/hr IV. 250 / 250 SIG BOLUS [facility] Rx#:[id number] Vancomycin Inj 1,500 MG In NS 515 / 515 Inj 500 ML @ 250 mls/hr IV.SIG ONCE ONE Rx#:[id number] Oral 2200 / 2200 Other: # Voids 5 <Mendoza Ruiz A - Last Filed: 08/21/18 12:45> Results - Labs CBC & Chem 7: 08/20/18 06:54 08/20/18 06:54 Labs: Laboratory Results - last 24 hr 08/19/18 08/19/18 08/19/18 12:08 13:00 13:00 WBC 17.0 H RBC 5.12 Hgb 13.1 Hct 41.9 MCV 81.7 MCH 25.6 L MCHC 31.3 L RDW 16.3 Plt Count 350 MPV 7.4 Neut % (Auto) 84.2 H Lymph % (Auto) 7.3 L [place] % (Auto) 6.7 Eos % (Auto) 1.6 Baso % (Auto) 0.2 Neut # (Auto) 14.3 H Lymph # (Auto) 1.2 [place] # (Auto) 1.1 H Eos # (Auto) 0.3 Baso # (Auto) 0.0 WBC Differential . Differential Comment Auto diff final Sodium 134 L Potassium 4.7 Chloride 97 L Carbon Dioxide 27.6 Anion Gap 9 BUN 11 Creatinine 1.09 Estimated GFR 69 L Random Glucose 147 H Lactic Acid 2.9 H Calcium 9.9 Total Bilirubin 1.4 H AST 52 H ALT 70 Alkaline Phosphatase 120 H Total Protein 8.6 H Albumin 3.0 L Random Vancomycin 08/20/18 08/20/18 06:54 06:54 WBC 10.1 RBC 3.99 L Hgb 10.7 L D Hct 32.1 L MCV 80.3 MCH 26.7 L MCHC 33.3 RDW 16.4 Plt Count 227 D MPV 7.3 Neut % (Auto) 65.6 Lymph % (Auto) 17.0 [place] % (Auto) 8.6 H Eos % (Auto) 8.3 H Baso % (Auto) 0.5 Neut # (Auto) 6.6 Lymph # (Auto) 1.7 [place] # (Auto) 0.9 Eos # (Auto) 0.8 H Baso # (Auto) 0.0 WBC Differential . Differential Comment Auto diff final Sodium 133 L Potassium 3.8 D Chloride 99 Carbon Dioxide 27.9 Anion Gap 6 BUN 16 Creatinine 1.41 H Estimated GFR 51 L Random Glucose 111 H Lactic Acid Calcium 9.0 D Total Bilirubin 1.3 H AST 19 ALT 40 Alkaline Phosphatase 91 Total Protein 7.0 D Albumin 2.5 L Random Vancomycin 17.3 - Imaging Impressions Abdomen/Pelvis CT 08/19/18 13:11 CONCLUSION: 1. Expected postoperative features of cholecystectomy with surgical drain in the cholecystectomy bed. No focal drainable fluid collections or significant free fluid. 2. Diffusely decreased hepatic attenuation consistent with hepatic steatosis versus medical liver disease. 3. Nondistended fluid-filled loops of proximal small bowel which may reflect developing mild adynamic ileus. <Whit Cox - Last Filed: 08/20/18 13:12> - Labs CBC & Chem 7: 08/20/18 06:54 08/20/18 06:54 Labs: Laboratory Results - last 24 hr 08/21/18 04:30 Random Vancomycin 12.0 - Imaging Impressions Cholangiopancreatography MRI 08/20/18 00:00 CONCLUSION: 1. Expected postoperative features of cholecystectomy with ill-defined trace fluid in the surgical bed but no focal drainable fluid collection. Patient was noted to have a small bile leak on HIDA scan. 2. Mildly prominent common bile duct measuring up to 8 mm without intrahepatic ductal dilatation. No focal CBD defect. <Mendoza Ruiz - Last Filed: 08/21/18 12:45> Assessment and Plan - Plan This patient is a 57-year-old male with a recent history of cholecystitis and cholecystectomy done on 07/26/2018. Past medical history significant for anxiety and hypertension. Surgical history includes cholecystectomy, shoulder surgery and appendectomy. LAURI drain was placed at the time of the cholecystectomy on 07/26/2018. Patient was then discharged home with a drain in place. He was also given a prescription for Augmentin as the antibiotic. Patient presented to the emergency room at [facility] with complaint of right-sided abdominal pain with fevers and chills for 2 days. Patient also endorses noted decreased output from LAURI drain over the last 2 days. Upon consultation, patient reports right-sided abdominal pain surrounding LAURI site and noted decreased amounts of drainage over the last 48 hours. Patient endorses fevers with chills 101 F. Patient denies ever having had an EGD or colonoscopy in the past. States he smokes 1 pack/day and does not use alcohol products. Our service has been consulted to to evaluate patient for possible ERCP with stent placement Abdominal pain Suspected biliary infection/postop cholecystectomy Our service has been consulted to evaluate patient's need for possible ERCP with stent placement. 08/19/2018 CT abdomen and pelvis: 1. Expected postoperative features of cholecystectomy with surgical drain in the cholecystectomy bed. No focal drainable fluid collections or significant free fluid. 2. Diffusely decreased hepatic attenuation consistent with hepatic steatosis versus medical liver disease. 3. Nondistended fluid-filled loops of proximal small bowel which may reflect developing mild adynamic ileus. (08/20) WBC 10.1 improving, hemoglobin 10.7 hematocrit 32.1, total bilirubin 1.3 AST 19 ALT 40 alk phos 91 all trending down Plan -Diet as tolerated -MRCP for further evaluation -Monitor labs -Analgesic and and antiemetic as per attending -Continue IV antibiotics -Supportive care -Further recommendations to follow This patient has been seen by myself and Dr. Ruiz and this note is written on his behalf - Attending Attestation Dr. Ruiz <Whit Cox - Last Filed: 08/20/18 13:12> - Attending Attestation Seen and examined, plan as above. Will check MRCP results. Further recommendations to follow. Thank you for the consult. <Mendoza Ruiz - Last Filed: 08/21/18 12:45>
[2018-08-20] MEDS ORDERED: Vancomycin Inj 1,500 MG in Sodium Chlor 0.9% Inj 500 ML IV.SIG ONE (14:00)
--- NOTE | 2018-08-20 14:27 | MR ---
EXAM DATE: 08/20/2018 2:11 PM EST AGE/SEX: 57 years / Male INDICATIONS: Abdominal pain. RUQ pain s/p cholecystectomy. CLINICAL DATA: This is the patient's initial encounter. Patient reports that signs and symptoms have been present for 2 days and indicates a pain score of 3/10. MEDICAL/SURGICAL HISTORY: Hypertension. Appendectomy. Cholecystectomy. Orthopedic. COMPARISON: [facility], NM BILIARY QUANTITATIVE (HIDA), 08/14/2018. . TECHNIQUE: Multiplanar, multisequence images of the abdomen were obtained without contrast including dedicated cholangiographic images. FINDINGS: LIVER: The liver is homogeneous and normal in signal intensity with no focal defects. INTRAHEPATIC BILE DUCTS: There is no intrahepatic biliary ductal dilatation. COMMON BILE DUCT: Common bile duct is distended measuring up to 8 mm. No filling defects or obstructi ng lesions are identified. GALLBLADDER: Gallbladder is surgically absent. Ill-defined trace fluid in the surgical bed without fo saravanan fluid collection. PANCREAS: The pancreas appears normal in signal with no focal parenchymal abnormalities. The pancreat ic duct is normal in caliber with no filling defects, or obstructing lesions identified. CONCLUSION: 1. Expected postoperative features of cholecystectomy with ill-defined trace fluid in the surgical b ed but no focal drainable fluid collection. Patient was noted to have a small bile leak on HIDA scan. 2. Mildly prominent common bile duct measuring up to 8 mm without intrahepatic ductal dilatation. No focal CBD defect. Electronically signed by: Keo Dela Cruz MD 08/20/2018 2:26 PM EST
[2018-08-21] MEDS: oxyCODONE/Acetaminophen 10/325 Tablet PO PRN ×5 (04:30→21:02)
[2018-08-21] MEDS: ALPRAZolam 0.25 MG Tablet PO PRN ×5 (04:30→21:02)
[2018-08-21] MEDS: Piperacil/Tazo 3.375 GM Premix 50 ML IV.SIG SCH ×3 (04:31→21:02)
[2018-08-21] MEDS: Sod Chloride 0.9% Inj 1,000 ML IV.CONT SCH ×3 (04:32→21:05)
[2018-08-21] MEDS: Morphine Inj 4 MG/ML Vial IV.PUSH PRN ×2 (06:42→22:13)
[2018-08-21] MEDS: lamoTRIgine 100 MG Tablet PO SCH (08:44)
[2018-08-21] MEDS: Lisinopril 20 MG Tablet PO SCH (08:44)
[2018-08-21] MEDS: Sodium Chloride 0.9% 2 ML Flush BID IV.FLUSH SCH ×2 (08:44→22:14)
[2018-08-21] MEDS ORDERED: Sodium Chlor 0.9% Inj 250 ML IV.SIG SCH (11:00)
--- NOTE | 2018-08-21 12:52 | P.PN ---
Subjective Interval history: Mr. Kim is a 57-year-old male. He has a recent history of cholecystitis which was complex cholecystitis and required surgery. Surgery was performed on 07/26/2018. At that time he had cholecystectomy and placement of drain. He discharged with drain in place. He was also discharged on Augmentin and he says he has been on Augmentin throughout course of his recovery including this morning. In the past 48 hours he has developed right-sided abdominal pain and fevers, chills, and diaphoresis episodes. With leukocytosis and tachycardia in addition to biliary infection, this patient meets sepsis criteria at time of admit. No other complaints when seen. No shortness of breath or chest pain. He also reports that he has had cessation of output from his drain. 08/20: Seen by General ear specialist recommended to consult GI specialist for stent placement, leave drain in until LAURI output drops significantly, expect this to occur after the stent is placed to allow for preferential drainage through the common bile duct rather than through the cystic duct stump. no nausea, vomit or diarrhea. seen early in am in his bedroom and discussed with nurse Miss Asencio 08/21: Stable in his bedroom, no nausea, vomit or diarrhea, General ear specialist following, status post MRCP found small bile leak on HIDA scan, Mildly prominent common bile duct measuring up to 8 mm without intrahepatic ductal dilatation. No focal CBD defect, recommended by GI specialist for ERCP later today, to continue antibiotics, due to Sepsis, suspected biliary infection post Op Cholecystectomy. Physical Exam Vital signs: Vital Signs 08/20/18 16:00 08/20/18 20:00 08/21/18 00:00 Temperature 97.9 F 99.6 F 99.1 F Pulse Rate 75 81 94 H Respiratory Rate 18 19 17 Blood Pressure 105/64 112/51 L 142/69 H Pulse Oximetry 92 L 90 L 94 L 08/21/18 00:09 08/21/18 00:15 08/21/18 04:00 Temperature 97.6 F Pulse Rate 96 H 77 Respiratory Rate 18 Blood Pressure 122/60 Pulse Oximetry 93 L 93 L 08/21/18 05:56 08/21/18 08:00 Temperature 99.2 F Pulse Rate 88 Respiratory Rate 18 20 Blood Pressure 129/77 Pulse Oximetry 93 L Intake & Output 08/20/18 08/21/18 08/21/18 18:59 06:59 18:59 Intake Total 1565 / 1565 3350 / 3350 250 / 250 Balance 1565 / 1565 3350 / 3350 250 / 250 Weight 126.9 kg Intake: IV 1565 / 1565 1150 / 1150 250 / 250 NS Inj 1,000 ML @ 100 mls/hr IV 1000 / 1000 1000 / 1000 .CONT .Q10H [facility] Rx#:[id number] Zosyn 3.375 GM Premix 50 ML @ 50 / 50 100 / 100 100 mls/hr IV.SIG Q8H [facility] Rx#: [id number] NS Inj 250 ML @ 500 mls/hr IV. 250 / 250 SIG BOLUS [facility] Rx#:[id number] Vancomycin Inj 1,500 MG In NS 515 / 515 Inj 500 ML @ 250 mls/hr IV.SIG ONCE ONE Rx#:[id number] Oral 0 / 2200 Other: # Voids 5 Narrative: GENERAL: Morbid obesity, no acute distress HEAD: Normocephalic. NECK: Supple, trachea midline. No lymphadenopathy. EYES: No scleral icterus. No injection or drainage. CARDIOVASCULAR: Regular rate and rhythm without murmurs, gallops, or rubs. RESPIRATORY: Breath sounds equal bilaterally. No accessory muscle use. GASTROINTESTINAL: Obese abdomen, tenderness with guarding at right side, no pain or guarding with palpation of left side of abdomen. Biliary drain is present. MUSCULOSKELETAL: No cyanosis, or edema. SKIN: Warm and dry. NEURO: No focal neurological deficits. Results - Labs CBC & Chem 7: 08/20/18 06:54 08/20/18 06:54 Laboratory Results - last 24 hr 08/21/18 04:30 Random Vancomycin 12.0 Microbiology 08/19/18 12:08 Blood - Peripheral Aerobic Blood Culture - Preliminary No growth in 2 days 08/19/18 12:08 Blood - Peripheral Anaerobic Blood Culture - Preliminary No growth in 2 days 08/19/18 13:00 Blood - Peripheral Aerobic Blood Culture - Preliminary No growth in 2 days 08/19/18 13:00 Blood - Peripheral Anaerobic Blood Culture - Preliminary No growth in 2 days - Imaging Cholangiopancreatography MRI 08/20/18 00:00 CONCLUSION: 1. Expected postoperative features of cholecystectomy with ill-defined trace fluid in the surgical bed but no focal drainable fluid collection. Patient was noted to have a small bile leak on HIDA scan. 2. Mildly prominent common bile duct measuring up to 8 mm without intrahepatic ductal dilatation. No focal CBD defect. - Procedures MRCP 08/20/18 Assessment and Plan - Plan 57-year-old male admitted secondary to acute abdominal pain and sepsis status post cholecystectomy with drain present. Status post cholecystectomy Biliary drain obstruction Abdomen infection Sepsis Continue Vancomycin, Zosyn and Probiotics. 08/20: Seen by General ear specialist recommended to consult GI specialist for stent placement, leave drain in until LAURI output drops significantly, expect this to occur after the stent is placed to allow for preferential drainage through the common bile duct rather than through the cystic duct stump 08/21: Stable in his bedroom, no nausea, vomit or diarrhea, General ear specialist following, status post MRCP found small bile leak on HIDA scan, Mildly prominent common bile duct measuring up to 8 mm without intrahepatic ductal dilatation. No focal CBD defect, recommended by GI specialist for ERCP later today, to continue antibiotics, due to Sepsis, suspected biliary infection post Op Cholecystectomy. Hypertension controlled. PRN IV Enalapril Follow blood pressures Adjust treatments as needed Anxiety As needed Xanax Morbid Obesity Strongly recommended diet and exercise as outpatient. Tobacco dependence Strongly recommended to stop smoking Acute Kidney Injury Probable secondary to NPO patient not receiving IV fluids due to increased edema and respiratory distress. today giving fluids he will go for ERCP, asked for BNP and Echocardiogram follow BMP in am tomorrow. DVT prophylaxis SCDs Code Status: Full Code. Discussed Condition With: patient and Nurse Miss Asencio Discharge Planning: Once cleared by specialists.
[2018-08-21 14:14] LABS: Calcium 9.4 mg/dL (8.5-10.1); Carbon Dioxide 29.3 meq/L (21.0-32.0); Potassium 3.9 meq/L (3.5-5.1)
[2018-08-21] MEDS: Vancomycin Inj 1,500 MG in Sodium Chlor 0.9% Inj 500 ML IV.SIG SCH (16:41)
--- NOTE | 2018-08-21 17:15 | P.PNGS ---
Subjective Interval history: Seen about 0750--- No acute events overnight Physical Exam Vital signs: Vital Signs 08/20/18 20:00 08/21/18 00:00 08/21/18 00:09 Temperature 99.6 F 99.1 F Pulse Rate 81 94 H 96 H Respiratory Rate 19 17 Blood Pressure 112/51 L 142/69 H Pulse Oximetry 90 L 94 L 08/21/18 00:15 08/21/18 04:00 08/21/18 05:56 Temperature 97.6 F Pulse Rate 77 Respiratory Rate 18 18 Blood Pressure 122/60 Pulse Oximetry 93 L 93 L 08/21/18 08:00 08/21/18 12:00 08/21/18 16:00 Temperature 99.2 F 98.5 F Pulse Rate 88 80 78 Respiratory Rate 20 19 Blood Pressure 129/77 120/76 Pulse Oximetry 93 L 93 L Intake & Output 08/20/18 08/21/18 08/21/18 18:59 06:59 18:59 Intake Total 1565 / 1565 3350 / 3350 300 / 300 Balance 1565 / 1565 3350 / 3350 300 / 300 Weight 126.9 kg Intake: IV 1565 / 1565 1150 / 1150 300 / 300 NS Inj 1,000 ML @ 100 mls/hr IV 1000 / 1000 1000 / 1000 .CONT .Q10H [facility] Rx#:[id number] Zosyn 3.375 GM Premix 50 ML @ 50 / 50 100 / 100 50 / 50 100 mls/hr IV.SIG Q8H [facility] Rx#: [id number] NS Inj 250 ML @ 500 mls/hr IV. 250 / 250 SIG BOLUS [facility] Rx#:[id number] Vancomycin Inj 1,500 MG In NS 515 / 515 Inj 500 ML @ 250 mls/hr IV.SIG ONCE ONE Rx#:[id number] Oral 0 / 2200 Other: # Voids 5 Narrative: Alert and awake Abd: red around LAURI drain; LAURI with cloudy green tinged fluid Results - Labs 08/20/18 06:54 08/21/18 13:43 Laboratory Results - last 24 hr 08/21/18 08/21/18 08/21/18 04:30 13:43 13:43 Sodium 136 Potassium 3.9 Chloride 101 Carbon Dioxide 29.3 Anion Gap 6 BUN 15 Creatinine 1.05 Estimated GFR 72 L Random Glucose 114 H Calcium 9.4 B-Natriuretic Peptide 32 Random Vancomycin 12.0 - Imaging Imaging: ITS Impressions Abdomen/Pelvis CT 08/19/18 13:11 CONCLUSION: 1. Expected postoperative features of cholecystectomy with surgical drain in the cholecystectomy bed. No focal drainable fluid collections or significant free fluid. 2. Diffusely decreased hepatic attenuation consistent with hepatic steatosis versus medical liver disease. 3. Nondistended fluid-filled loops of proximal small bowel which may reflect developing mild adynamic ileus. Cholangiopancreatography MRI 08/20/18 00:00 CONCLUSION: 1. Expected postoperative features of cholecystectomy with ill-defined trace fluid in the surgical bed but no focal drainable fluid collection. Patient was noted to have a small bile leak on HIDA scan. 2. Mildly prominent common bile duct measuring up to 8 mm without intrahepatic ductal dilatation. No focal CBD defect. Assessment and Plan - Assessment (1) Sepsis Code(s): A41.9 - Sepsis, unspecified organism Status: Acute Plan: 57 year old male s/p lap ender several week ago; fevers -GI to eval for ERCP with stent placement today -NPO -Continue LAURI care Await ERCP results May be able to discharge in next day or so The exam, history, and the medical decision-making described in the above note were completed with the assistance of the mid-level provider. I reviewed and agree with the findings presented. I attest that I had a [id number] encounter with the patient on the same day, and personally performed and documented my assessment and findings in the medical record. (1) Sepsis Qualifiers: Sepsis type: sepsis due to unspecified organism Qualified Code(s): A41.9 - Sepsis, unspecified organism
--- NOTE | 2018-08-21 18:16 | ECHRPT ---
Indication: CARDIOMYOPATHY CONCLUSIONS The left ventricular systolic function is normal with an estimated ejection fraction in the range of 60-65%. Moderate concentric left ventricular hypertrophy. [id number] mitral valve regurgitation. There is mild tricuspid valve regurgitation. There is estimated mild pulmonary hypertension present (range 40-50 mmHg). BP: / HR: Rhythm: MEASUREMENTS (Male / Female) Normal Values Technical Quality:Very technically difficult study 2D ECHO LV Diastolic Diameter PLAX 5.3 cm 4.2 - 5.9 / 3.9 - 5.3 cm LV Systolic Diameter PLAX 4.2 cm IVS Diastolic Thickness 2.1 cm 0.6 - 1.0 / 0.6 - 0.9 cm LVPW Diastolic Thickness 1.5 cm 0.6 - 1.0 / 0.6 - 0.9 cm LV Relative Wall Thickness 0.7 RV Internal Dim ED PLAX 3.7 cm LVOT Diameter 2.9 cm Aortic Root Diameter 4.2 cm LV Ejection Fraction MOD BP 54.2 % >= 55 % LV Ejection Fraction MOD 4C 62.9 % LV Ejection Fraction 4C AL 66.7 % LV Ejection Fraction MOD 2C 46.9 % LV Ejection Fraction 2C AL 51.8 % M-MODE Aortic Root Diameter MM 4.7 cm LA Systolic Diameter MM 3.9 cm LA Ao Ratio MM 0.8 AV Cusp Separation MM 3.0 cm DOPPLER AV Peak Velocity 160.0 cm/s AV Peak Gradient 10.2 mmHg LVOT Peak Velocity 147.0 cm/s LVOT Peak Gradient 8.6 mmHg AV Area Cont Eq pk 6.1 cm Mitral E Point Velocity 77.0 cm/s Mitral A Point Velocity 52.8 cm/s Mitral E to A Ratio 1.5 LV E' Lateral Velocity 11.6 cm/s Mitral E to LV E' Lateral Ratio 6.6 LV E' Septal Velocity 7.4 cm/s Mitral E to LV E' Septal Ratio 10.4 TR Peak Velocity 311.0 cm/s TR Peak Gradient 38.7 mmHg Right Atrial Pressure 10.0 mmHg Pulmonary Artery Systolic Pressu 48.7 mmHg Right Ventricular Systolic Press 48.7 mmHg PV Peak Velocity 132.0 cm/s PV Peak Gradient 7.0 mmHg FINDINGS LEFT VENTRICLE Normal left ventricular size. Moderate concentric left ventricular hypertrophy. The left ventricular systolic function is normal with an estimated ejection fraction in the range of 60-65%. No regional wall motion abnormalities are present. RIGHT VENTRICLE Normal right ventricular size and systolic function. LEFT ATRIUM The left atrial size is upper limits of normal. RIGHT ATRIUM The right atrial size is normal. ATRIAL SEPTUM Normal atrial septal thickness AORTA The aortic root and proximal ascending aorta are normal in size on limited imaging. MITRAL VALVE Structurally normal mitral valve. [id number]-[id number] mitral valve regurgitation. No mitral valve stenosis. AORTIC VALVE Trileaflet aortic valve. No aortic valve stenosis or regurgitation. TRICUSPID VALVE Structurally normal tricuspid valve. There is mild tricuspid valve regurgitation. No tricuspid valve stenosis. The estimated pulmonary arterial pressure is 49 mmHg. There is estimated mild pulmonary hypertension present (range 40-50 mmHg). PULMONARY VALVE No pulmonary valve regurgitation or stenosis. VESSELS The inferior vena cava is normal in size. PERICARDIUM No pericardial effusion. Carlos Vizcaino DO (Electronically Signed) Final Date:21 August 2018 18:15
[2018-08-22] MEDS: ALPRAZolam 0.25 MG Tablet PO PRN ×3 (03:46→20:00)
[2018-08-22] MEDS: Sod Chloride 0.9% Inj 1,000 ML IV.CONT SCH ×2 (03:46→15:19)
[2018-08-22] MEDS: Morphine Inj 4 MG/ML Vial IV.PUSH PRN ×3 (03:47→20:02)
[2018-08-22] MEDS: Piperacil/Tazo 3.375 GM Premix 50 ML IV.SIG SCH ×3 (04:12→20:04)
[2018-08-22] MEDS: Sodium Chloride 0.9% 2 ML Flush BID IV.FLUSH SCH ×2 (08:37→23:14)
[2018-08-22] MEDS: Lisinopril 20 MG Tablet PO SCH (08:37)
[2018-08-22] MEDS: lamoTRIgine 100 MG Tablet PO SCH (08:37)
[2018-08-22] MEDS: oxyCODONE/Acetaminophen 10/325 Tablet PO PRN ×3 (08:43→21:49)
[2018-08-22] MEDS: Vancomycin Inj 1,500 MG in Sodium Chlor 0.9% Inj 500 ML IV.SIG SCH (09:17)
--- NOTE | 2018-08-22 14:26 | FL ---
EXAM DATE: 08/22/2018 2:22 PM EST AGE/SEX: 57 years / Male INDICATIONS: Obstruction, stent placement. CLINICAL DATA: This is the patient's initial encounter. Patient reports that signs and symptoms have been present for 1 day and indicates a pain score of Nonresponsive. MEDICAL/SURGICAL HISTORY: . Hypertension. . Cholecystectomy. Appendectomy. COMPARISON: No prior exams available for comparison. FINDINGS: An ERCP was performed by the ordering physician. The images demonstrate mild prominence of the intra hepatic biliary system and common bile duct. The patient is post cholecystectomy. No stones are seen. CONCLUSION: ERCP as above. Electronically signed by: Michael Coates MD 08/22/2018 2:24 PM EST
--- NOTE | 2018-08-22 14:27 | GIPROC ---
[facility] [address] [facility]. [facility], [address] ERCP PROCEDURE REPORT EXAM DATE: 08/22/2018 PATIENT NAME: John Paul Kim MR #: [id number] BIRTHDATE: 1960 ATTENDING: Mendoza Ruiz MD ORDER #: [id number] FINANCIAL PLANNER: Jennifer Clark Hatchett, Chauncey, Howard, Jennifer, and Luiza Cadena STATUS: inpatient INDICATIONS: The patient is a 57 yr old male here for an ERCP due to therapy of complication of previous biliary surgery PROCEDURE PERFORMED: ERCP with stent placement MEDICATIONS: Per Anesthesia and None. CONSENT: The patient understands the risks and benefits of the procedure and understands that these risks include, but are not limited to: sedation, allergic reaction, infection, perforation and/or bleeding. Alternative means of evaluation and treatment include, among others: physical exam, x-rays, and/or surgical intervention. The patient elects to proceed with this endoscopic procedure. medical equipment was checked for proper function. Hand hygiene and appropriate measures for infection prevention was taken. After the risks, benefits and alternatives of the procedure were thoroughly explained, Informed was verified, confirmed and timeout was successfully executed by the treatment team. With the patient in left semi-prone position, medications were administered intravenously.The Pentax [id number] was passed from the mouth into the esophagus and further advanced from the esophagus into the stomach. From stomach scope was directed to the second portion of the duodenum. Major papilla was aligned with the duodenoscope. The scope position was confirmed fluoroscopically. Rest of the findings/therapeutics are given below. The scope was then completely withdrawn from the patient and the procedure completed. The pulse, BP, and O2 saturation were monitored and documented by the physician and the nursing staff throughout the entire procedure. The patient was cared for as planned according to standard protocol. The patient was then discharged to recovery in stable condition and with appropriate post procedure care. The ampulla was located the second portion of the duodenum. The ampulla appeared normal. FREE-TEXT There was a dilation of the CBD and common hepatic duct. There was extravastion of contrast seen. Under endoscopic and fluoroscopic guidance, a 10Fr x 9cm plastic stent was placed in the bile duct. ADVERSE EVENT: There were no complications. IMPRESSIONS: 1. Normal appearing ampulla 2. Dilated CBD and CHD, No filling defects seen, No site of leak seen. 3. Plastic biliary stent placed 10F 9CM with good drainage. RECOMMENDATIONS: Liver enzymes REPEAT EXAM: ERCP in 8 weeks for stent removal Mendoza Ruiz MD eSigned: Mendoza Ruiz MD 08/22/2018 2:26 PM cc:
--- NOTE | 2018-08-22 16:20 | P.PNIM ---
Subjective Interval history: The patient was seen following his procedure. He felt uncomfortable. He felt bloated. He said he has not had a bowel movement in days. He says his pain medications were not enough. Discussed with nursing. Physical Exam Vital signs: Vital Signs 08/21/18 20:00 08/22/18 00:00 08/22/18 04:00 Temperature 97.5 F L 97.7 F 98.0 F Pulse Rate 76 77 82 Respiratory Rate 18 18 18 Blood Pressure 117/79 127/87 162/84 H Pulse Oximetry 96 96 94 L 08/22/18 08:00 08/22/18 12:00 08/22/18 14:25 Temperature 98.0 F 98.1 F Pulse Rate 79 72 82 Respiratory Rate 17 15 Blood Pressure 118/89 140/83 Pulse Oximetry 94 L 92 L 08/22/18 14:45 Temperature 98.0 F Pulse Rate 80 Respiratory Rate 17 Blood Pressure 125/67 Pulse Oximetry 94 L Intake & Output 08/21/18 08/22/18 08/22/18 18:59 06:59 18:59 Intake Total 815 / 815 1100 / 1100 2165 / 2165 Balance 815 / 815 1100 / 1100 2165 / 2165 Weight 137.7 kg Intake: IV 815 / 815 1100 / 1100 1565 / 1565 NS Inj 1,000 ML @ 75 mls/hr IV. 1000 / 1000 1000 / 1000 CONT .[id number] [facility] Rx#:[id number] Zosyn 3.375 GM Premix 50 ML @ 50 / 50 100 / 100 50 / 50 100 mls/hr IV.SIG Q8H [facility] Rx#: [id number] NS Inj 250 ML @ 500 mls/hr IV. 250 / 250 SIG BOLUS [facility] Rx#:[id number] Vancomycin Inj 1,500 MG In NS 515 / 515 515 / 515 Inj 500 ML @ 250 mls/hr IV.SIG Q18H [facility] Rx#:[id number] Anesthesia Amount 600 / 600 Other: # Voids 3 5 # Bowel Movements 0 Narrative: GENERAL: Morbid obesity, no acute distress. HEAD: Normocephalic. NECK: Supple, trachea midline. No lymphadenopathy. EYES: No scleral icterus. No injection or drainage. CARDIOVASCULAR: Regular rate and rhythm without murmurs, gallops, or rubs. RESPIRATORY: Breath sounds equal bilaterally. No accessory muscle use. GASTROINTESTINAL: Obese abdomen, mild tenderness. Biliary drain is present. MUSCULOSKELETAL: No cyanosis, or edema. SKIN: Warm and dry. NEURO: No focal neurological deficits. Results - Labs CBC & Chem 7: 08/20/18 06:54 08/21/18 13:43 Microbiology 08/19/18 12:08 Blood - Peripheral Aerobic Blood Culture - Preliminary No growth in 3 days 08/19/18 12:08 Blood - Peripheral Anaerobic Blood Culture - Preliminary No growth in 3 days 08/19/18 13:00 Blood - Peripheral Aerobic Blood Culture - Preliminary No growth in 3 days 08/19/18 13:00 Blood - Peripheral Anaerobic Blood Culture - Preliminary No growth in 3 days - Imaging Impressions GI Procedure 08/22/18 00:00 CONCLUSION: ERCP as above. - Procedures MRCP 08/20/18 Assessment and Plan - Plan 57-year-old male admitted secondary to acute abdominal pain and sepsis status post cholecystectomy with drain present. Status post cholecystectomy Biliary drain obstruction Abdomen infection Sepsis Continue Vancomycin, Zosyn and Probiotics. Seen by General relocation specialist recommended to consult GI specialist for stent placement, leave drain in until LAURI output drops significantly, expect this to occur after the stent is placed to allow for preferential drainage through the common bile duct rather than through the cystic duct stump Status post MRCP found small bile leak on HIDA scan, Mildly prominent common bile duct measuring up to 8 mm without intrahepatic ductal dilatation. No focal CBD defect, recommended by GI specialist for ERCP, to continue antibiotics, due to Sepsis, suspected biliary infection post Op Cholecystectomy. -s/p ERCP with stent placement 08/22. Hypertension controlled. PRN IV Enalapril Follow blood pressures Adjust treatments as needed Anxiety -As needed Xanax Tobacco dependence -Strongly recommended to stop smoking Acute Kidney Injury Probable secondary to NPO patient not receiving IV fluids due to increased edema and respiratory distress. -follow BMP. Constipation -add bowel regimen. Anemia Hemoglobin decreased. -check anemia labs. -follow CBC. DVT prophylaxis SCDs
--- NOTE | 2018-08-22 18:31 | XR ---
EXAM DATE: 08/22/2018 6:25 PM EST AGE/SEX: 57 years / Male INDICATIONS: Shortness of breath and lower, middle chest pain. CLINICAL DATA: This is the patient's subsequent encounter. Patient reports that signs and symptoms h ave been present for 3 days and indicates a pain score of 9/10. MEDICAL/SURGICAL HISTORY: Hypertension. None. COMPARISON: [facility] [place], CHEST 1V SINGLE AP, 07/22/2018. . FINDINGS: A single AP view of the chest demonstrates the lungs to be symmetrically aerated without evidence of mass, infiltrate or effusion. Mild basilar atelectasis right greater than left. The cardiomediastina l contours are unremarkable. Osseous structures are intact. CONCLUSION: Mild basilar atelectasis right greater than left. No evidence of pneumothorax or rib fracture Electronically signed by: Pola Gilliland MD 08/22/2018 6:30 PM EST
[2018-08-22] MEDS: Senna/Docusate Sodium 8.6/50 MG Tablet PO SCH (20:04)
[2018-08-23] MEDS: ALPRAZolam 0.25 MG Tablet PO PRN ×5 (00:20→21:46)
[2018-08-23] MEDS: Morphine Inj 4 MG/ML Vial IV.PUSH PRN ×3 (00:21→14:12)
[2018-08-23] MEDS: oxyCODONE/Acetaminophen 10/325 Tablet PO PRN ×5 (02:21→21:46)
[2018-08-23] MEDS ORDERED: HYDROmorphone PF Inj 2 MG/ML Vial IV.PUSH ONE (03:06)
[2018-08-23] MEDS: Vancomycin Inj 1,500 MG in Sodium Chlor 0.9% Inj 500 ML IV.SIG SCH (03:23)
[2018-08-23] MEDS: Sod Chloride 0.9% Inj 1,000 ML IV.CONT SCH ×4 (03:26→21:48)
[2018-08-23] MEDS ORDERED: Pharmacy Ordered Lab Info OTHER ONE (03:45)
[2018-08-23] MEDS: Sodium Chloride 0.9% 2 ML Flush PRN IV.FLUSH (05:49)
[2018-08-23] MEDS: Piperacil/Tazo 3.375 GM Premix 50 ML IV.SIG SCH ×3 (05:50→21:47)
[2018-08-23 07:44] LABS: Baso % (Auto) 0.2 % (0.0-2.0); Eos % (Auto) 0.1 % (0.0-4.0); Hemoglobin 11.8 gm/dL (13.0-17.0); Lymph % (Auto) 12.4 % (9.0-44.0); Mean Corpuscular HGB Conc 32.7 % (32.0-36.0); Mean Corpuscular Hemoglobin 26.2 pg (27.0-34.0); Mean Corpuscular Volume 80.2 fL (80.0-100.0); Mean Platelet Volume 6.8 fL (7.0-11.0); Mono # (Auto) 0.5 th/mm3 (0.0-0.9); Mono % (Auto) 6.1 % (0.0-8.0); Neut # (Auto) 6.7 th/mm3 (1.8-7.7); Neut % (Auto) 81.2 % (16.0-70.0); Platelet Count 321 th/mm3 (150-450); White Blood Count 8.3 th/mm3 (4.0-11.0)
[2018-08-23] MEDS: Senna/Docusate Sodium 8.6/50 MG Tablet PO SCH ×2 (08:00→21:46)
[2018-08-23] MEDS: Lisinopril 20 MG Tablet PO SCH (08:00)
[2018-08-23] MEDS: lamoTRIgine 100 MG Tablet PO SCH (08:00)
[2018-08-23] MEDS: Sodium Chloride 0.9% 2 ML Flush BID IV.FLUSH SCH ×2 (08:01→21:47)
[2018-08-23 08:20] LABS: Albumin 2.5 g/dL (3.4-5.0); Calcium 9.2 mg/dL (8.5-10.1); Carbon Dioxide 29.2 meq/L (21.0-32.0); Potassium 4.2 meq/L (3.5-5.1)
[2018-08-23 08:24] LABS: Total Protein 7.4 g/dL (6.4-8.2)
[2018-08-23] MEDS ORDERED: Lisinopril 20 MG Tablet PO ONE (14:11)
--- NOTE | 2018-08-23 14:49 | P.PNGS ---
Subjective Interval history: Uncontrolled pain Resting in bed Physical Exam Vital signs: Vital Signs 08/22/18 16:00 08/22/18 20:00 08/22/18 20:33 Temperature 97.3 F L 98.3 F Pulse Rate 92 H 84 91 H Respiratory Rate 19 17 Blood Pressure 146/9 H 195/116 H Pulse Oximetry 90 L 92 L 08/23/18 00:00 08/23/18 02:00 08/23/18 04:00 Temperature 98.4 F 97.5 F L Pulse Rate 90 92 H Respiratory Rate 20 20 Blood Pressure 197/119 H 198/108 H 188/98 H Pulse Oximetry 93 L 93 L 08/23/18 05:57 08/23/18 08:00 08/23/18 12:00 Temperature 97.9 F 97.9 F Pulse Rate 84 84 Respiratory Rate 18 17 18 Blood Pressure 190/110 H 196/115 H Pulse Oximetry 93 L 94 L Intake & Output 08/22/18 08/23/18 08/23/18 18:59 06:59 18:59 Intake Total 2165 / 2165 1700 / 1700 1050 / 1050 Output Total 250 / 250 10 / 10 Balance 2165 / 2165 1450 / 1450 1040 / 1040 Intake: IV 1565 / 1565 1460 / 1460 1050 / 1050 NS Inj 1,000 ML @ 75 mls/hr IV. 1000 / 1000 800 / 800 1000 / 1000 CONT .[id number] [facility] Rx#:[id number] Zosyn 3.375 GM Premix 50 ML @ 50 / 50 100 / 100 50 / 50 100 mls/hr IV.SIG Q8H [facility] Rx#: [id number] Vancomycin Inj 1,500 MG In NS 515 / 515 560 / 560 Inj 500 ML @ 250 mls/hr IV.SIG Q18H [facility] Rx#:[id number] Oral 240 / 240 Anesthesia Amount 600 / 600 Output: Urine 250 / 250 Wound Drainage 10 / 10 Right Abdomen LAURI Drain 10 10 Other: # Voids 3 # Bowel Movements 0 Narrative: Alert and awake Abd: obese; lap sites healing. Red around drain insertion site. LAURI with minimal output but green Results - Labs 08/25/18 06:17 08/25/18 06:17 Laboratory Results - last 24 hr 08/23/18 08/23/18 08/23/18 03:30 06:37 06:37 WBC 8.3 RBC 4.50 Hgb 11.8 L Hct 36.0 L MCV 80.2 MCH 26.2 L MCHC 32.7 RDW 16.0 Plt Count 321 D MPV 6.8 L Neut % (Auto) 81.2 H Lymph % (Auto) 12.4 Wirt % (Auto) 6.1 Eos % (Auto) 0.1 Baso % (Auto) 0.2 Neut # (Auto) 6.7 Lymph # (Auto) 1.0 Wirt # (Auto) 0.5 Eos # (Auto) 0.0 Baso # (Auto) 0.0 WBC Differential . Differential Comment Auto diff final Sodium 139 Potassium 4.2 Chloride 105 Carbon Dioxide 29.2 Anion Gap 5 BUN 10 Creatinine 1.00 Estimated GFR 76 L Random Glucose 171 H Calcium 9.2 Total Bilirubin 0.6 Direct Bilirubin 0.1 Indirect Bilirubin 0.5 AST 17 ALT 29 Alkaline Phosphatase 86 Total Protein 7.4 Albumin 2.5 L Vancomycin Trough 10.0 - Imaging Imaging: ITS Impressions Abdomen/Pelvis CT 08/19/18 13:11 CONCLUSION: 1. Expected postoperative features of cholecystectomy with surgical drain in the cholecystectomy bed. No focal drainable fluid collections or significant free fluid. 2. Diffusely decreased hepatic attenuation consistent with hepatic steatosis versus medical liver disease. 3. Nondistended fluid-filled loops of proximal small bowel which may reflect developing mild adynamic ileus. Cholangiopancreatography MRI 08/20/18 00:00 CONCLUSION: 1. Expected postoperative features of cholecystectomy with ill-defined trace fluid in the surgical bed but no focal drainable fluid collection. Patient was noted to have a small bile leak on HIDA scan. 2. Mildly prominent common bile duct measuring up to 8 mm without intrahepatic ductal dilatation. No focal CBD defect. GI Procedure 08/22/18 00:00 CONCLUSION: ERCP as above. Chest X-Ray 08/22/18 17:46 CONCLUSION: Mild basilar atelectasis right greater than left. No evidence of pneumothorax or rib fracture Assessment and Plan - Assessment (1) Sepsis Code(s): A41.9 - Sepsis, unspecified organism Status: Acute Plan: 57 year old male s/p lap ender several week ago; fevers -S/p ERCP---increased pain ---will check lipase -Diet as tolerated -Continue LAURI care Lipase is elevated; post-procedure pancreatitis to explain pain Will continue pain meds for now. LAURI output not previously recorded; will check on output before removing The exam, history, and the medical decision-making described in the above note were completed with the assistance of the mid-level provider. I reviewed and agree with the findings presented. I attest that I had a [id number] encounter with the patient on the same day, and personally performed and documented my assessment and findings in the medical record. (1) Sepsis Qualifiers: Sepsis type: sepsis due to unspecified organism Qualified Code(s): A41.9 - Sepsis, unspecified organism
[2018-08-23] MEDS ORDERED: HYDROmorphone PF Inj 0.5 MG/0.5 ML Syringe IV.PUSH ONE (14:50)
--- NOTE | 2018-08-23 14:52 | P.PNIM ---
Subjective Interval history: The pt was complaining of severe 10/10 abdominal pain. It started after eating last night. He has had nausea. Discussed with nursing and surgery. Physical Exam Vital signs: Vital Signs 08/22/18 16:00 08/22/18 20:00 08/22/18 20:33 Temperature 97.3 F L 98.3 F Pulse Rate 92 H 84 91 H Respiratory Rate 19 17 Blood Pressure 146/9 H 195/116 H Pulse Oximetry 90 L 92 L 08/23/18 00:00 08/23/18 02:00 08/23/18 04:00 Temperature 98.4 F 97.5 F L Pulse Rate 90 92 H Respiratory Rate 20 20 Blood Pressure 197/119 H 198/108 H 188/98 H Pulse Oximetry 93 L 93 L 08/23/18 05:57 08/23/18 08:00 08/23/18 12:00 Temperature 97.9 F 97.9 F Pulse Rate 84 84 Respiratory Rate 18 17 18 Blood Pressure 190/110 H 196/115 H Pulse Oximetry 93 L 94 L Intake & Output 08/22/18 08/23/18 08/23/18 18:59 06:59 18:59 Intake Total 2165 / 2165 1700 / 1700 1050 / 1050 Output Total 250 / 250 10 / 10 Balance 2165 / 2165 1450 / 1450 1040 / 1040 Intake: IV 1565 / 1565 1460 / 1460 1050 / 1050 NS Inj 1,000 ML @ 75 mls/hr IV. 1000 / 1000 800 / 800 1000 / 1000 CONT .[id number] ENOC Rx#:[id number] Zosyn 3.375 GM Premix 50 ML @ 50 / 50 100 / 100 50 / 50 100 mls/hr IV.SIG Q8H ENOC Rx#: [id number] Vancomycin Inj 1,500 MG In NS 515 / 515 560 / 560 Inj 500 ML @ 250 mls/hr IV.SIG Q18H ENOC Rx#:[id number] Oral 240 / 240 Anesthesia Amount 600 / 600 Output: Urine 250 / 250 Wound Drainage 10 / 10 Right Abdomen LAURI Drain 10 / 10 Other: # Voids 3 # Bowel Movements 0 Narrative: GENERAL: Morbid obesity, uncomfortable. HEAD: Normocephalic. NECK: Supple, trachea midline. No lymphadenopathy. EYES: No scleral icterus. No injection or drainage. CARDIOVASCULAR: Regular rate and rhythm without murmurs, gallops, or rubs. RESPIRATORY: Breath sounds equal bilaterally. No accessory muscle use. GASTROINTESTINAL: Obese abdomen, generalized tenderness. Biliary drain is present. MUSCULOSKELETAL: No cyanosis, or edema. SKIN: Warm and dry. NEURO: No focal neurological deficits. Results - Labs CBC & Chem 7: 08/23/18 06:37 08/23/18 06:37 Laboratory Results - last 24 hr 08/23/18 08/23/18 08/23/18 03:30 06:37 06:37 WBC 8.3 RBC 4.50 Hgb 11.8 L Hct 36.0 L MCV 80.2 MCH 26.2 L MCHC 32.7 RDW 16.0 Plt Count 321 D MPV 6.8 L Neut % (Auto) 81.2 H Lymph % (Auto) 12.4 [place] % (Auto) 6.1 Eos % (Auto) 0.1 Baso % (Auto) 0.2 Neut # (Auto) 6.7 Lymph # (Auto) 1.0 [place] # (Auto) 0.5 Eos # (Auto) 0.0 Baso # (Auto) 0.0 WBC Differential . Differential Comment Auto diff final Sodium 139 Potassium 4.2 Chloride 105 Carbon Dioxide 29.2 Anion Gap 5 BUN 10 Creatinine 1.00 Estimated GFR 76 L Random Glucose 171 H Calcium 9.2 Total Bilirubin 0.6 Direct Bilirubin 0.1 Indirect Bilirubin 0.5 AST 17 ALT 29 Alkaline Phosphatase 86 Total Protein 7.4 Albumin 2.5 L Lipase Vancomycin Trough 10.0 08/23/18 06:37 WBC RBC Hgb Hct MCV MCH MCHC RDW Plt Count MPV Neut % (Auto) Lymph % (Auto) [place] % (Auto) Eos % (Auto) Baso % (Auto) Neut # (Auto) Lymph # (Auto) [place] # (Auto) Eos # (Auto) Baso # (Auto) WBC Differential Differential Comment Sodium Potassium Chloride Carbon Dioxide Anion Gap BUN Creatinine Estimated GFR Random Glucose Calcium Total Bilirubin Direct Bilirubin Indirect Bilirubin AST ALT Alkaline Phosphatase Total Protein Albumin Lipase 4522 H Vancomycin Trough Microbiology 08/19/18 12:08 Blood - Peripheral Aerobic Blood Culture - Preliminary No growth in 4 days 08/19/18 12:08 Blood - Peripheral Anaerobic Blood Culture - Preliminary No growth in 4 days 08/19/18 13:00 Blood - Peripheral Aerobic Blood Culture - Preliminary No growth in 4 days 08/19/18 13:00 Blood - Peripheral Anaerobic Blood Culture - Preliminary No growth in 4 days - Imaging Impressions Chest X-Ray 08/22/18 17:46 CONCLUSION: Mild basilar atelectasis right greater than left. No evidence of pneumothorax or rib fracture - Procedures MRCP 08/20/18 Assessment and Plan - Plan 57-year-old male admitted secondary to acute abdominal pain and sepsis status post cholecystectomy with drain present. Status post cholecystectomy Biliary drain obstruction Abdomen infection Sepsis Continue Vancomycin, Zosyn and Probiotics. Seen by General child life specialist recommended to consult GI specialist for stent placement, leave drain in until LAURI output drops significantly, expect this to occur after the stent is placed to allow for preferential drainage through the common bile duct rather than through the cystic duct stump Status post MRCP found small bile leak on HIDA scan, Mildly prominent common bile duct measuring up to 8 mm without intrahepatic ductal dilatation. No focal CBD defect, recommended by GI specialist for ERCP, to continue antibiotics, due to Sepsis, suspected biliary infection post Op Cholecystectomy. -s/p ERCP with stent placement 08/22. Acute pancreatitis Likely s/t ERCP. Lipase over 4000. LFTs unremarkable. -make NPO with IVFs. -pain control and antiemetics as needed. Hypertension Exacerbated by pain. -pain control. -increase lisinopril. -clonidine prn. Tobacco dependence -Strongly recommended to stop smoking Acute Kidney Injury Probable secondary to NPO patient not receiving IV fluids due to increased edema and respiratory distress. -follow BMP. Constipation -added a bowel regimen. Increase as needed. Anemia Hemoglobin decreased. -check anemia labs. -follow CBC. DVT prophylaxis SCDs
--- NOTE | 2018-08-23 16:16 | P.PNGI ---
Subjective Interval history: Pt is resting in bed, having diffused abd pain but states is getting better. <Ori Grey - Last Filed: 08/23/18 16:10> Physical Exam Vital signs: Vital Signs 08/22/18 20:00 08/22/18 20:33 08/23/18 00:00 Temperature 98.3 F 98.4 F Pulse Rate 84 91 H 90 Respiratory Rate 17 20 Blood Pressure 195/116 H 197/119 H Pulse Oximetry 92 L 93 L 08/23/18 02:00 08/23/18 04:00 08/23/18 05:57 Temperature 97.5 F L Pulse Rate 92 H Respiratory Rate 20 18 Blood Pressure 198/108 H 188/98 H Pulse Oximetry 93 L 08/23/18 08:00 08/23/18 12:00 Temperature 97.9 F 97.9 F Pulse Rate 84 84 Respiratory Rate 17 18 Blood Pressure 190/110 H 196/115 H Pulse Oximetry 93 L 94 L Intake & Output 08/22/18 08/23/18 08/23/18 18:59 06:59 18:59 Intake Total 2165 / 2165 1700 / 1700 2049 Output Total 250 / 250 10 / 10 Balance 2165 / 2165 1450 / 1450 2039 Intake: IV 1565 / 1565 1460 / 1460 2049 NS Inj 1,000 ML @ 75 mls/hr IV. 1000 / 1000 800 / 800 2000 / 2000 CONT .[id number] ENOC Rx#:[id number] Zosyn 3.375 GM Premix 50 ML @ 50 / 50 100 / 100 50 / 50 100 mls/hr IV.SIG Q8H ENOC Rx#: [id number] Vancomycin Inj 1,500 MG In NS 515 / 515 560 / 560 Inj 500 ML @ 250 mls/hr IV.SIG Q18H ENOC Rx#:[id number] Oral 240 / 240 Anesthesia Amount 600 / 600 Output: Urine 250 / 250 Wound Drainage 10 Right Abdomen LAURI Drain Other: # Voids 3 # Bowel Movements 0 Narrative: GENERAL: Morbid obesity, NAD HEAD: Normocephalic. NECK: Supple, trachea midline. No lymphadenopathy. CARDIOVASCULAR: Regular rate and rhythm without murmurs, gallops, or rubs. RESPIRATORY: Breath sounds equal bilaterally. No accessory muscle use. GASTROINTESTINAL: Obese abdomen, generalized tenderness. Biliary drain is present. MUSCULOSKELETAL: No cyanosis, or edema. SKIN: Warm and dry. NEURO: No focal neurological deficits. <Ori Grey - Last Filed: 08/23/18 16:10> Vital signs: Vital Signs 08/22/18 20:00 08/22/18 20:33 08/23/18 00:00 Temperature 98.3 F 98.4 F Pulse Rate 84 91 H 90 Respiratory Rate 17 20 Blood Pressure 195/116 H 197/119 H Pulse Oximetry 92 L 93 L 08/23/18 02:00 08/23/18 04:00 08/23/18 05:57 Temperature 97.5 F L Pulse Rate 92 H Respiratory Rate 20 18 Blood Pressure 198/108 H 188/98 H Pulse Oximetry 93 L 08/23/18 08:00 08/23/18 12:00 Temperature 97.9 F 97.9 F Pulse Rate 84 84 Respiratory Rate 17 18 Blood Pressure 190/110 H 196/115 H Pulse Oximetry 93 L 94 L Intake & Output 08/22/18 08/23/18 08/23/18 18:59 06:59 18:59 Intake Total 2165 / 2165 1700 / 1700 2049 Output Total 250 / 250 10 10 Balance 2165 / 2165 1450 / 1450 2039 Intake: IV 1565 / 1565 1460 / 1460 2049 NS Inj 1,000 ML @ 75 mls/hr IV. 1000 / 1000 800 / 800 2000 / 2000 CONT .[id number] ENOC Rx#:[id number] Zosyn 3.375 GM Premix 50 ML @ 50 / 50 100 / 100 50 / 50 100 mls/hr IV.SIG Q8H ENOC Rx#: [id number] Vancomycin Inj 1,500 MG In NS 515 / 515 560 / 560 Inj 500 ML @ 250 mls/hr IV.SIG Q18H ENOC Rx#:[id number] Oral 240 / 240 Anesthesia Amount 600 / 600 Output: Urine 250 / 250 Wound Drainage 10 Right Abdomen LAURI Drain Other: # Voids 3 # Bowel Movements 0 <Mendoza Ruiz - Last Filed: 08/23/18 16:43> Results - Labs CBC & Chem 7: 08/23/18 06:37 08/23/18 06:37 Laboratory Results - last 24 hr 08/23/18 08/23/18 08/23/18 03:30 06:37 06:37 WBC 8.3 RBC 4.50 Hgb 11.8 L Hct 36.0 L MCV 80.2 MCH 26.2 L MCHC 32.7 RDW 16.0 Plt Count 321 D MPV 6.8 L Neut % (Auto) 81.2 H Lymph % (Auto) 12.4 [place] % (Auto) 6.1 Eos % (Auto) 0.1 Baso % (Auto) 0.2 Neut # (Auto) 6.7 Lymph # (Auto) 1.0 [place] # (Auto) 0.5 Eos # (Auto) 0.0 Baso # (Auto) 0.0 WBC Differential . Differential Comment Auto diff final Sodium 139 Potassium 4.2 Chloride 105 Carbon Dioxide 29.2 Anion Gap 5 BUN 10 Creatinine 1.00 Estimated GFR 76 L Random Glucose 171 H Calcium 9.2 Total Bilirubin 0.6 Direct Bilirubin 0.1 Indirect Bilirubin 0.5 AST 17 ALT 29 Alkaline Phosphatase 86 Total Protein 7.4 Albumin 2.5 L Lipase Vancomycin Trough 10.0 08/23/18 06:37 WBC RBC Hgb Hct MCV MCH MCHC RDW Plt Count MPV Neut % (Auto) Lymph % (Auto) [place] % (Auto) Eos % (Auto) Baso % (Auto) Neut # (Auto) Lymph # (Auto) [place] # (Auto) Eos # (Auto) Baso # (Auto) WBC Differential Differential Comment Sodium Potassium Chloride Carbon Dioxide Anion Gap BUN Creatinine Estimated GFR Random Glucose Calcium Total Bilirubin Direct Bilirubin Indirect Bilirubin AST ALT Alkaline Phosphatase Total Protein Albumin Lipase 4522 H Vancomycin Trough Microbiology 08/19/18 12:08 Blood - Peripheral Aerobic Blood Culture - Preliminary No growth in 4 days 08/19/18 12:08 Blood - Peripheral Anaerobic Blood Culture - Preliminary No growth in 4 days 08/19/18 13:00 Blood - Peripheral Aerobic Blood Culture - Preliminary No growth in 4 days 08/19/18 13:00 Blood - Peripheral Anaerobic Blood Culture - Preliminary No growth in 4 days - Imaging Impressions Chest X-Ray 08/22/18 17:46 CONCLUSION: Mild basilar atelectasis right greater than left. No evidence of pneumothorax or rib fracture - Procedures MRCP 08/20/18 Abdomen/Pelvis CT 08/19/18 13:11 CONCLUSION: 1. Expected postoperative features of cholecystectomy with surgical drain in the cholecystectomy bed. No focal drainable fluid collections or significant free fluid. 2. Diffusely decreased hepatic attenuation consistent with hepatic steatosis versus medical liver disease. 3. Nondistended fluid-filled loops of proximal small bowel which may reflect developing mild adynamic ileus. Cholangiopancreatography MRI 08/20/18 00:00 CONCLUSION: 1. Expected postoperative features of cholecystectomy with ill-defined trace fluid in the surgical bed but no focal drainable fluid collection. Patient was noted to have a small bile leak on HIDA scan. 2. Mildly prominent common bile duct measuring up to 8 mm without intrahepatic ductal dilatation. No focal CBD defect. GI Procedure 08/22/18 00:00 CONCLUSION: ERCP as above. Chest X-Ray 08/22/18 17:46 CONCLUSION: Mild basilar atelectasis right greater than left. No evidence of pneumothorax or rib fracture <Ori Grey - Last Filed: 08/23/18 16:10> - Labs CBC & Chem 7: 08/23/18 06:37 08/23/18 06:37 Laboratory Results - last 24 hr 08/23/18 08/23/18 08/23/18 03:30 06:37 06:37 WBC 8.3 RBC 4.50 Hgb 11.8 L Hct 36.0 L MCV 80.2 MCH 26.2 L MCHC 32.7 RDW 16.0 Plt Count 321 D MPV 6.8 L Neut % (Auto) 81.2 H Lymph % (Auto) 12.4 [place] % (Auto) 6.1 Eos % (Auto) 0.1 Baso % (Auto) 0.2 Neut # (Auto) 6.7 Lymph # (Auto) 1.0 [place] # (Auto) 0.5 Eos # (Auto) 0.0 Baso # (Auto) 0.0 WBC Differential . Differential Comment Auto diff final Sodium 139 Potassium 4.2 Chloride 105 Carbon Dioxide 29.2 Anion Gap 5 BUN 10 Creatinine 1.00 Estimated GFR 76 L Random Glucose 171 H Calcium 9.2 Total Bilirubin 0.6 Direct Bilirubin 0.1 Indirect Bilirubin 0.5 AST 17 ALT 29 Alkaline Phosphatase 86 Total Protein 7.4 Albumin 2.5 L Lipase Vancomycin Trough 10.0 08/23/18 06:37 WBC RBC Hgb Hct MCV MCH MCHC RDW Plt Count MPV Neut % (Auto) Lymph % (Auto) [place] % (Auto) Eos % (Auto) Baso % (Auto) Neut # (Auto) Lymph # (Auto) [place] # (Auto) Eos # (Auto) Baso # (Auto) WBC Differential Differential Comment Sodium Potassium Chloride Carbon Dioxide Anion Gap BUN Creatinine Estimated GFR Random Glucose Calcium Total Bilirubin Direct Bilirubin Indirect Bilirubin AST ALT Alkaline Phosphatase Total Protein Albumin Lipase 4522 H Vancomycin Trough Microbiology 08/19/18 12:08 Blood - Peripheral Aerobic Blood Culture - Preliminary No growth in 4 days 08/19/18 12:08 Blood - Peripheral Anaerobic Blood Culture - Preliminary No growth in 4 days 08/19/18 13:00 Blood - Peripheral Aerobic Blood Culture - Preliminary No growth in 4 days 08/19/18 13:00 Blood - Peripheral Anaerobic Blood Culture - Preliminary No growth in 4 days - Imaging Impressions Chest X-Ray 08/22/18 17:46 CONCLUSION: Mild basilar atelectasis right greater than left. No evidence of pneumothorax or rib fracture <Mendoza Ruiz - Last Filed: 08/23/18 16:43> Assessment and Plan - Plan This patient is a 57-year-old male with a recent history of cholecystitis and cholecystectomy done on 07/26/2018. Past medical history significant for anxiety and hypertension. Surgical history includes cholecystectomy, shoulder surgery and appendectomy. LAURI drain was placed at the time of the cholecystectomy on 07/26/2018. Patient was then discharged home with a drain in place. He was also given a prescription for Augmentin as the antibiotic. Patient presented to the emergency room at [facility] with complaint of right-sided abdominal pain with fevers and chills for 2 days. Patient also endorses noted decreased output from LAURI drain over the last 2 days. Upon consultation, patient reports right-sided abdominal pain surrounding LAURI site and noted decreased amounts of drainage over the last 48 hours. Patient endorses fevers with chills 101 F. Patient denies ever having had an EGD or colonoscopy in the past. States he smokes 1 pack/day and does not use alcohol products. Our service has been consulted to to evaluate patient for possible ERCP with stent placement Abdominal pain Suspected biliary infection/postop cholecystectomy Our service has been consulted to evaluate patient's need for possible ERCP with stent placement. 08/19/2018 CT abdomen and pelvis: 1. Expected postoperative features of cholecystectomy with surgical drain in the cholecystectomy bed. No focal drainable fluid collections or significant free fluid. 2. Diffusely decreased hepatic attenuation consistent with hepatic steatosis versus medical liver disease. 3. Nondistended fluid-filled loops of proximal small bowel which may reflect developing mild adynamic ileus. Cholangiopancreatography MRI 08/20/18 1. Expected postoperative features of cholecystectomy with ill-defined trace fluid in the surgical bed but no focal drainable fluid collection. Patient was noted to have a small bile leak on HIDA scan. 2. Mildly prominent common bile duct measuring up to 8 mm without intrahepatic ductal dilatation. No focal CBD defect. S/P ERCP/stent on 08/22/18 1. Normal appearing ampulla 2. Dilated CBD and CHD, No filling defects seen, No site of leak seen. 3. Plastic biliary stent placed 10F 9CM with good drainage. WBC 8.3 hemoglobin 11.8 total bilirubin and LFTs normalized - Elevated lipase- likely post ERCP pancreatitis lipase today is 4522 Plan - NPO - Lipase, lfts in the am -Analgesic and and antiemetic as per attending -Continue IV antibiotics -Supportive care -Further recommendations to follow This patient has been seen by myself and Dr. Ruiz and this note is written on his behalf <Ori Grey - Last Filed: 08/23/18 16:10> - Attending Attestation Seen and examined, plan as above. Will give enema and colace. Follow lipase and NPO for now. Will follow up with you. <Mendoza Ruiz - Last Filed: 08/23/18 16:43>
[2018-08-23] MEDS: Vancomycin Inj 1,750 MG in Sodium Chlor 0.9% Inj 500 ML IV.SIG SCH (17:28)
[2018-08-23] MEDS ORDERED: Mineral Oil Enema 118 ML Bottle RECTAL ONE (18:00)
[2018-08-23] MEDS: HYDROmorphone PF Inj 1 MG/ML Ampul IV.PUSH PRN (19:21)
[2018-08-24] MEDS: HYDROmorphone PF Inj 1 MG/ML Ampul IV.PUSH PRN ×5 (00:27→21:06)
[2018-08-24] MEDS: oxyCODONE/Acetaminophen 10/325 Tablet PO PRN ×4 (04:01→18:21)
[2018-08-24] MEDS: ALPRAZolam 0.25 MG Tablet PO PRN ×2 (04:01→09:22)
[2018-08-24] MEDS: Sod Chloride 0.9% Inj 1,000 ML IV.CONT SCH ×3 (04:05→18:23)
[2018-08-24] MEDS: Piperacil/Tazo 3.375 GM Premix 50 ML IV.SIG SCH ×3 (04:07→21:05)
[2018-08-24 06:06] LABS: Baso # (Auto) 0.1 th/mm3 (0.0-0.2); Baso % (Auto) 0.5 % (0.0-2.0); Eos % (Auto) 0.2 % (0.0-4.0); Hemoglobin 11.9 gm/dL (13.0-17.0); Lymph # (Auto) 1.2 th/mm3 (1.0-4.8); Lymph % (Auto) 8.4 % (9.0-44.0); Mean Corpuscular HGB Conc 31.2 % (32.0-36.0); Mean Corpuscular Hemoglobin 25.4 pg (27.0-34.0); Mean Corpuscular Volume 81.5 fL (80.0-100.0); Mean Platelet Volume 7.2 fL (7.0-11.0); Mono # (Auto) 1.1 th/mm3 (0.0-0.9); Mono % (Auto) 7.4 % (0.0-8.0); Neut # (Auto) 11.8 th/mm3 (1.8-7.7); Neut % (Auto) 83.5 % (16.0-70.0); Platelet Count 307 th/mm3 (150-450); Red Blood Count 4.67 mil/mm3 (4.50-5.90); Red Cell Distribution Width 16.8 % (11.6-17.2); White Blood Count 14.2 th/mm3 (4.0-11.0)
[2018-08-24 06:43] LABS: Albumin 2.3 g/dL (3.4-5.0); Anion Gap 7 meq/L (5-15); Aspartate Aminotransferase 14 U/L (15-37); Blood Urea Nitrogen 7 mg/dL (7-18); Calcium 8.8 mg/dL (8.5-10.1); Carbon Dioxide 27.7 meq/L (21.0-32.0); Chloride 104 meq/L (98-107); Glucose,Random 101 mg/dL (74-106); Potassium 3.9 meq/L (3.5-5.1); Sodium 139 meq/L (136-145)
[2018-08-24 06:44] LABS: Alanine Aminotransferase 22 U/L (12-78)
[2018-08-24 06:46] LABS: Alkaline Phosphatase 76 U/L (45-117); Lipase 2874 U/L (73-393)
[2018-08-24] MEDS: Lisinopril 20 MG Tablet PO SCH (09:21)
[2018-08-24] MEDS: Senna/Docusate Sodium 8.6/50 MG Tablet PO SCH ×2 (09:21→21:05)
[2018-08-24] MEDS: lamoTRIgine 100 MG Tablet PO SCH (09:21)
[2018-08-24] MEDS: Sodium Chloride 0.9% 2 ML Flush BID IV.FLUSH SCH ×2 (09:22→21:07)
[2018-08-24] MEDS ORDERED: Sod Phosphate/Sod Biphosphate (Adult) Enema 133 ML Bottle RECTAL ONE (11:30)
[2018-08-24] MEDS: Vancomycin Inj 1,750 MG in Sodium Chlor 0.9% Inj 500 ML IV.SIG SCH (12:01)
--- NOTE | 2018-08-24 12:33 | P.PNIM ---
Subjective Interval history: The patient was complaining of severe abdominal pain. His daughter was at the bedside. The patient says that he was passing gas yesterday but not today. He refused his enema today. He says he would like to tried drinking some apple juice. He was taking sips of water. Their questions were answered. Discussed with nursing and general surgery. Physical Exam Vital signs: Vital Signs 08/23/18 16:00 08/23/18 19:23 08/23/18 20:00 Temperature 99.5 F 98.4 F Pulse Rate 109 H 99 H Respiratory Rate 17 18 Blood Pressure 170/110 H 179/70 H Pulse Oximetry 96 95 08/23/18 22:16 08/24/18 00:00 08/24/18 01:00 Temperature 98.4 F Pulse Rate 105 H Respiratory Rate 18 17 18 Blood Pressure 136/76 Pulse Oximetry 95 08/24/18 04:00 08/24/18 07:00 08/24/18 07:55 Temperature 98.6 F Pulse Rate 102 H 98 H 106 H Respiratory Rate 19 Blood Pressure 156/80 H Pulse Oximetry 95 08/24/18 08:00 08/24/18 09:20 Temperature 100.7 F H Pulse Rate 88 Respiratory Rate 18 Blood Pressure 210/111 H 158/85 H Pulse Oximetry 95 Intake & Output 08/23/18 08/24/18 08/24/18 18:59 06:59 18:59 Intake Total 3010 / 3010 3417.5 / 3417.5 Output Total 960 / 960 400 / 400 Balance 2049 3017.5 / 3017.5 Intake: IV 2049 2617.5 / 2617.5 NS Inj 1,000 ML @ 150 mls/hr IV 1999 .CONT .Q6H40M ENOC Rx#:[id number] Zosyn 3.375 GM Premix 50 ML @ 50 / 50 100 / 100 100 mls/hr IV.SIG Q8H ENOC Rx#: [id number] Vancomycin Inj 1,750 MG In NS 517.5 / 517.5 Inj 500 ML @ 258.75 mls/hr IV. SIG Q18H ENOC Rx#:[id number] Oral 960 / 960 800 / 800 Output: Urine 950 / 950 400 / 400 Wound Drainage 10 / 10 Right Abdomen LAURI Drain Other: # Voids 1 # Bowel Movements 0 Narrative: GENERAL: Morbid obesity, NAD. HEAD: Normocephalic. NECK: Supple, trachea midline. No lymphadenopathy. CARDIOVASCULAR: Regular rate and rhythm without murmurs, gallops, or rubs. RESPIRATORY: Breath sounds equal bilaterally. No accessory muscle use. GASTROINTESTINAL: Obese abdomen, generalized tenderness. Biliary drain is present. +BS. MUSCULOSKELETAL: No cyanosis, or edema. SKIN: Warm and dry. NEURO: No focal neurological deficits. PSYCH: Anxious. Results - Labs CBC & Chem 7: 08/24/18 04:09 08/24/18 04:09 Laboratory Results - last 24 hr 08/23/18 08/24/18 08/24/18 06:37 04:09 04:09 WBC 14.2 H D RBC 4.67 Hgb 11.9 L Hct 38.0 L MCV 81.5 MCH 25.4 L MCHC 31.2 L RDW 16.8 Plt Count 307 MPV 7.2 Neut % (Auto) 83.5 H Lymph % (Auto) 8.4 L [place] % (Auto) 7.4 Eos % (Auto) 0.2 Baso % (Auto) 0.5 Neut # (Auto) 11.8 H Lymph # (Auto) 1.2 [place] # (Auto) 1.1 H Eos # (Auto) 0.0 Baso # (Auto) 0.1 WBC Differential . Differential Comment Auto diff final Sodium 139 Potassium 3.9 Chloride 104 Carbon Dioxide 27.7 Anion Gap 7 BUN 7 Creatinine 0.86 POC Glucose Random Glucose 101 Calcium 8.8 Total Bilirubin 0.4 Direct Bilirubin 0.1 Indirect Bilirubin 0.3 AST 14 L ALT 22 Alkaline Phosphatase 76 Total Protein 7.0 Albumin 2.3 L Lipase 4522 H 2874 H 08/24/18 08/24/18 07:34 12:10 WBC RBC Hgb Hct MCV MCH MCHC RDW Plt Count MPV Neut % (Auto) Lymph % (Auto) [place] % (Auto) Eos % (Auto) Baso % (Auto) Neut # (Auto) Lymph # (Auto) [place] # (Auto) Eos # (Auto) Baso # (Auto) WBC Differential Differential Comment Sodium Potassium Chloride Carbon Dioxide Anion Gap BUN Creatinine POC Glucose 146 H 119 H Random Glucose Calcium Total Bilirubin Direct Bilirubin Indirect Bilirubin AST ALT Alkaline Phosphatase Total Protein Albumin Lipase Microbiology 08/19/18 12:08 Blood - Peripheral Aerobic Blood Culture - Final No growth in 5 days 08/19/18 12:08 Blood - Peripheral Anaerobic Blood Culture - Final No growth in 5 days 08/19/18 13:00 Blood - Peripheral Aerobic Blood Culture - Final No growth in 5 days 08/19/18 13:00 Blood - Peripheral Anaerobic Blood Culture - Final No growth in 5 days - Procedures MRCP 08/20/18 Abdomen/Pelvis CT 08/19/18 13:11 CONCLUSION: 1. Expected postoperative features of cholecystectomy with surgical drain in the cholecystectomy bed. No focal drainable fluid collections or significant free fluid. 2. Diffusely decreased hepatic attenuation consistent with hepatic steatosis versus medical liver disease. 3. Nondistended fluid-filled loops of proximal small bowel which may reflect developing mild adynamic ileus. Cholangiopancreatography MRI 08/20/18 00:00 CONCLUSION: 1. Expected postoperative features of cholecystectomy with ill-defined trace fluid in the surgical bed but no focal drainable fluid collection. Patient was noted to have a small bile leak on HIDA scan. 2. Mildly prominent common bile duct measuring up to 8 mm without intrahepatic ductal dilatation. No focal CBD defect. GI Procedure 08/22/18 00:00 CONCLUSION: ERCP as above. Chest X-Ray 08/22/18 17:46 CONCLUSION: Mild basilar atelectasis right greater than left. No evidence of pneumothorax or rib fracture Assessment and Plan - Plan 57-year-old male admitted secondary to acute abdominal pain and sepsis status post cholecystectomy with drain present. Status post cholecystectomy Biliary drain obstruction Abdomen infection Sepsis Continue Vancomycin, Zosyn and Probiotics. Seen by General student education specialist recommended to consult GI specialist for stent placement, leave drain in until LAURI output drops significantly, expect this to occur after the stent is placed to allow for preferential drainage through the common bile duct rather than through the cystic duct stump Status post MRCP found small bile leak on HIDA scan, Mildly prominent common bile duct measuring up to 8 mm without intrahepatic ductal dilatation. No focal CBD defect, recommended by GI specialist for ERCP, to continue antibiotics, due to Sepsis, suspected biliary infection post Op Cholecystectomy. -s/p ERCP with stent placement 08/22. -repeat KUB. Follow up with GI and surgery. Acute pancreatitis Likely s/t ERCP. Lipase over 4000, improved overnight. LFTs unremarkable. -continue IVFs. -trend lipase level. -pain control and antiemetics as needed. -clear liquid diet. -GI following. Hypertension Exacerbated by pain. -pain control. -increased lisinopril. -clonidine prn. Tobacco dependence -Strongly recommended to stop smoking Acute Kidney Injury Probable secondary to NPO patient not receiving IV fluids due to increased edema and respiratory distress. -follow BMP. Constipation -added a bowel regimen. Increase as needed. -KUB pending. Anemia Hemoglobin decreased. -check anemia labs. -follow CBC. DVT prophylaxis SCDs
--- NOTE | 2018-08-24 14:14 | XR ---
EXAM DATE: 08/24/2018 2:07 PM EST AGE/SEX: 57 years / Male INDICATIONS: Evaluate for obstruction CLINICAL DATA: This is the patient's initial encounter. Patient reports that signs and symptoms have been present for 4 - 6 days and indicates a pain score of 6/10. MEDICAL/SURGICAL HISTORY: . : Hypertension. . Cholecystectomy. Appendectomy COMPARISON: . FINDINGS: The examination demonstrates a moderate amount of stool within the cecum, a sending and transverse c olon suggesting constipation. There is stool in the rectum and ascending colon as well. There is mild gaseous distention of the sigmoid. There is a LAURI drain in the right upper quadrant of the abdomen. Note is made of a biliary stent as we ll. The bony structures are intact. CONCLUSION: Moderate amount of stool within the colon suggesting constipation. No findings to indicate bowel obst ruction. Electronically signed by: Michael Coates MD 08/24/2018 2:13 PM EST
--- NOTE | 2018-08-24 14:50 | P.PNGS ---
Subjective Interval history: Resting in bed Restless secondary to pain Family at bedside Physical Exam Vital signs: Vital Signs 08/23/18 16:00 08/23/18 19:23 08/23/18 20:00 Temperature 99.5 F 98.4 F Pulse Rate 109 H 99 H Respiratory Rate 17 18 Blood Pressure 170/110 H 179/70 H Pulse Oximetry 96 95 08/23/18 22:16 08/24/18 00:00 08/24/18 01:00 Temperature 98.4 F Pulse Rate 105 H Respiratory Rate 18 17 18 Blood Pressure 136/76 Pulse Oximetry 95 08/24/18 04:00 08/24/18 07:00 08/24/18 07:55 Temperature 98.6 F Pulse Rate 102 H 98 H 106 H Respiratory Rate 19 Blood Pressure 156/80 H Pulse Oximetry 95 08/24/18 08:00 08/24/18 09:20 Temperature 100.7 F H Pulse Rate 89 Respiratory Rate 18 Blood Pressure 210/111 H 158/85 H Pulse Oximetry 95 Intake & Output 08/23/18 08/24/18 08/24/18 18:59 06:59 18:59 Intake Total 3010 / 3010 3417.5 / 3417.5 1000 / 1000 Output Total 960 / 960 400 / 400 Balance 2049 / 2049 3017.5 / 3017.5 1000 / 1000 Intake: IV 2049 / 2049 2617.5 / 2617.5 1000 / 1000 NS Inj 1,000 ML @ 150 mls/hr IV 1999 / 1999 2000 / 2000 1000 / 1000 .CONT .Q6H40M [facility] Rx#:[id number] Zosyn 3.375 GM Premix 50 ML @ 50 / 50 100 / 100 100 mls/hr IV.SIG Q8H [facility] Rx#: [id number] Vancomycin Inj 1,750 MG In NS 517.5 / 517.5 Inj 500 ML @ 258.75 mls/hr IV. SIG Q18H [facility] Rx#:[id number] Oral 960 / 960 800 / 800 Output: Urine 950 / 950 400 / 400 Wound Drainage 10 Right Abdomen LAURI Drain Other: # Voids 1 # Bowel Movements 0 Narrative: Alert and awake Abd: distended; LAURI drain in place--continues to have green drainage Results - Labs 08/25/18 06:17 08/25/18 06:17 Laboratory Results - last 24 hr 08/23/18 08/24/18 08/24/18 06:37 04:09 04:09 WBC 14.2 H D RBC 4.67 Hgb 11.9 L Hct 38.0 L MCV 81.5 MCH 25.4 L MCHC 31.2 L RDW 16.8 Plt Count 307 MPV 7.2 Neut % (Auto) 83.5 H Lymph % (Auto) 8.4 L Norman % (Auto) 7.4 Eos % (Auto) 0.2 Baso % (Auto) 0.5 Neut # (Auto) 11.8 H Lymph # (Auto) 1.2 Norman # (Auto) 1.1 H Eos # (Auto) 0.0 Baso # (Auto) 0.1 WBC Differential . Differential Comment Auto diff final Sodium 139 Potassium 3.9 Chloride 104 Carbon Dioxide 27.7 Anion Gap 7 BUN 7 Creatinine 0.86 POC Glucose Random Glucose 101 Calcium 8.8 Total Bilirubin 0.4 Direct Bilirubin 0.1 Indirect Bilirubin 0.3 AST 14 L ALT 22 Alkaline Phosphatase 76 Total Protein 7.0 Albumin 2.3 L Lipase 4522 H 2874 H 08/24/18 08/24/18 07:34 12:10 WBC RBC Hgb Hct MCV MCH MCHC RDW Plt Count MPV Neut % (Auto) Lymph % (Auto) Norman % (Auto) Eos % (Auto) Baso % (Auto) Neut # (Auto) Lymph # (Auto) Norman # (Auto) Eos # (Auto) Baso # (Auto) WBC Differential Differential Comment Sodium Potassium Chloride Carbon Dioxide Anion Gap BUN Creatinine POC Glucose 146 H 119 H Random Glucose Calcium Total Bilirubin Direct Bilirubin Indirect Bilirubin AST ALT Alkaline Phosphatase Total Protein Albumin Lipase - Imaging Imaging: ITS Impressions Abdomen/Pelvis CT 08/19/18 13:11 CONCLUSION: 1. Expected postoperative features of cholecystectomy with surgical drain in the cholecystectomy bed. No focal drainable fluid collections or significant free fluid. 2. Diffusely decreased hepatic attenuation consistent with hepatic steatosis versus medical liver disease. 3. Nondistended fluid-filled loops of proximal small bowel which may reflect developing mild adynamic ileus. Cholangiopancreatography MRI 08/20/18 00:00 CONCLUSION: 1. Expected postoperative features of cholecystectomy with ill-defined trace fluid in the surgical bed but no focal drainable fluid collection. Patient was noted to have a small bile leak on HIDA scan. 2. Mildly prominent common bile duct measuring up to 8 mm without intrahepatic ductal dilatation. No focal CBD defect. GI Procedure 08/22/18 00:00 CONCLUSION: ERCP as above. Chest X-Ray 08/22/18 17:46 CONCLUSION: Mild basilar atelectasis right greater than left. No evidence of pneumothorax or rib fracture Abdomen X-Ray 08/24/18 00:00 CONCLUSION: Moderate amount of stool within the colon suggesting constipation. No findings to indicate bowel obstruction. Assessment and Plan - Assessment (1) Sepsis Code(s): A41.9 - Sepsis, unspecified organism Status: Acute Plan: 57 year old male s/p lap ender several week ago; fevers -S/p ERCP---increased pain ---lipase elevated--- post procedure pancreatitis -Diet per primary and GI -Continue to monitor lipase -Continue LAURI care Still painful, as expected with pancreatitis Explained to him to limit IV dilaudid use as much as possible; his anxiety is contributing to his pain perception May consider Klonopin as substitute for Xanax; will leave to med service The exam, history, and the medical decision-making described in the above note were completed with the assistance of the mid-level provider. I reviewed and agree with the findings presented. I attest that I had a [id number] encounter with the patient on the same day, and personally performed and documented my assessment and findings in the medical record. (1) Sepsis Qualifiers: Sepsis type: sepsis due to unspecified organism Qualified Code(s): A41.9 - Sepsis, unspecified organism
--- NOTE | 2018-08-24 17:10 | P.PNGI ---
Subjective Interval history: Patient sitting up in bed Reports continued generalized abdominal pain Post ERCP with stent on 08/22/2018 <KennyWhit - Last Filed: 08/24/18 17:04> Physical Exam Vital signs: Vital Signs 08/23/18 19:23 08/23/18 20:00 08/23/18 22:16 Temperature 98.4 F Pulse Rate 99 H Respiratory Rate 18 18 Blood Pressure 170/110 H 179/70 H Pulse Oximetry 95 08/24/18 00:00 08/24/18 01:00 08/24/18 04:00 Temperature 98.4 F 98.6 F Pulse Rate 105 H 102 H Respiratory Rate 17 18 19 Blood Pressure 136/76 156/80 H Pulse Oximetry 95 95 08/24/18 07:00 08/24/18 07:55 08/24/18 08:00 Temperature 100.7 F H Pulse Rate 98 H 106 H 89 Respiratory Rate 18 Blood Pressure 210/111 H Pulse Oximetry 95 08/24/18 09:20 08/24/18 12:00 Temperature 100.0 F H Pulse Rate 88 Respiratory Rate 18 Blood Pressure 158/85 H 160/76 H Pulse Oximetry 95 Intake & Output 08/23/18 08/24/18 08/24/18 18:59 06:59 18:59 Intake Total 3010 / 3010 3417.5 / 3417.5 1567.5 / 1567.5 Output Total 960 / 960 400 / 400 Balance 2049 3017.5 / 3017.5 1567.5 / 1567.5 Intake: IV 2049 2617.5 / 2617.5 1567.5 / 1567.5 NS Inj 1,000 ML @ 150 mls/hr IV 1999 / 1999 1999 / 1999 1000 / 1000 .CONT .Q6H40M [facility] Rx#:[id number] Zosyn 3.375 GM Premix 50 ML @ 50 / 50 100 / 100 50 / 50 100 mls/hr IV.SIG Q8H [facility] Rx#: [id number] Vancomycin Inj 1,750 MG In NS 517.5 / 517.5 517.5 / 517.5 Inj 500 ML @ 258.75 mls/hr IV. SIG Q18H [facility] Rx#:[id number] Oral 960 / 960 800 / 800 Output: Urine 950 / 950 400 / 400 Wound Drainage Right Abdomen LAURI Drain Other: # Voids 1 # Bowel Movements 0 - Constitutional mild distress - Routine HEENT Exam Head: Present: normocephalic - Routine Respiratory Exam Present: CTA bilaterally. Absent: accessory muscle use - Routine Abdominal Exam Present: soft, normoactive bowel sounds, distended Comments: Reports generalized tenderness on palpation during exam - Routine Skin Exam Present: dry, warm - Routine Neurological Exam Present: alert <Cox,Whit - Last Filed: 08/24/18 17:04> Vital signs: Vital Signs 08/23/18 22:16 08/24/18 00:00 08/24/18 01:00 Temperature 98.4 F Pulse Rate 105 H Respiratory Rate 18 17 18 Blood Pressure 136/76 Pulse Oximetry 95 08/24/18 04:00 08/24/18 07:00 08/24/18 07:55 Temperature 98.6 F Pulse Rate 102 H 98 H 106 H Respiratory Rate 19 Blood Pressure 156/80 H Pulse Oximetry 95 08/24/18 08:00 08/24/18 09:20 08/24/18 12:00 Temperature 100.7 F H 100.0 F H Pulse Rate 89 88 Respiratory Rate 18 18 Blood Pressure 210/111 H 158/85 H 160/76 H Pulse Oximetry 95 95 08/24/18 16:00 Temperature 98.5 F Pulse Rate 83 Respiratory Rate 18 Blood Pressure 164/89 H Pulse Oximetry 96 Intake & Output 08/24/18 08/24/18 08/25/18 06:59 18:59 06:59 Intake Total 3417.5 / 3417.5 1567.5 / 1567.5 Output Total 400 / 400 300 / 300 Balance 3017.5 / 3017.5 1267.5 / 1267.5 Intake: IV 2617.5 / 2617.5 1567.5 / 1567.5 NS Inj 1,000 ML @ 150 mls/hr IV 1999 / 1999 1000 / 1000 .CONT .Q6H40M [facility] Rx#:[id number] Zosyn 3.375 GM Premix 50 ML @ 100 / 100 50 / 50 100 mls/hr IV.SIG Q8H [facility] Rx#: [id number] Vancomycin Inj 1,750 MG In NS 517.5 / 517.5 517.5 / 517.5 Inj 500 ML @ 258.75 mls/hr IV. SIG Q18H [facility] Rx#:[id number] Oral 800 / 800 Output: Urine 400 / 400 300 / 300 Other: # Voids 1 <Mendoza Ruiz A - Last Filed: 08/24/18 20:40> Results - Labs CBC & Chem 7: 08/24/18 04:09 08/24/18 04:09 Laboratory Results - last 24 hr 08/24/18 08/24/18 08/24/18 04:09 04:09 07:34 WBC 14.2 H D RBC 4.67 Hgb 11.9 L Hct 38.0 L MCV 81.5 MCH 25.4 L MCHC 31.2 L RDW 16.8 Plt Count 307 MPV 7.2 Neut % (Auto) 83.5 H Lymph % (Auto) 8.4 L Daniels % (Auto) 7.4 Eos % (Auto) 0.2 Baso % (Auto) 0.5 Neut # (Auto) 11.8 H Lymph # (Auto) 1.2 Daniels # (Auto) 1.1 H Eos # (Auto) 0.0 Baso # (Auto) 0.1 WBC Differential . Differential Comment Auto diff final Sodium 139 Potassium 3.9 Chloride 104 Carbon Dioxide 27.7 Anion Gap 7 BUN 7 Creatinine 0.86 POC Glucose 146 H Random Glucose 101 Calcium 8.8 Total Bilirubin 0.4 Direct Bilirubin 0.1 Indirect Bilirubin 0.3 AST 14 L ALT 22 Alkaline Phosphatase 76 Total Protein 7.0 Albumin 2.3 L Lipase 2874 H 08/24/18 12:10 WBC RBC Hgb Hct MCV MCH MCHC RDW Plt Count MPV Neut % (Auto) Lymph % (Auto) Daniels % (Auto) Eos % (Auto) Baso % (Auto) Neut # (Auto) Lymph # (Auto) Daniels # (Auto) Eos # (Auto) Baso # (Auto) WBC Differential Differential Comment Sodium Potassium Chloride Carbon Dioxide Anion Gap BUN Creatinine POC Glucose 119 H Random Glucose Calcium Total Bilirubin Direct Bilirubin Indirect Bilirubin AST ALT Alkaline Phosphatase Total Protein Albumin Lipase Microbiology 08/19/18 12:08 Blood - Peripheral Aerobic Blood Culture - Final No growth in 5 days 08/19/18 12:08 Blood - Peripheral Anaerobic Blood Culture - Final No growth in 5 days 08/19/18 13:00 Blood - Peripheral Aerobic Blood Culture - Final No growth in 5 days 08/19/18 13:00 Blood - Peripheral Anaerobic Blood Culture - Final No growth in 5 days - Imaging Impressions Abdomen X-Ray 08/24/18 00:00 CONCLUSION: Moderate amount of stool within the colon suggesting constipation. No findings to indicate bowel obstruction. - Procedures MRCP 08/20/18 Abdomen/Pelvis CT 08/19/18 13:11 CONCLUSION: 1. Expected postoperative features of cholecystectomy with surgical drain in the cholecystectomy bed. No focal drainable fluid collections or significant free fluid. 2. Diffusely decreased hepatic attenuation consistent with hepatic steatosis versus medical liver disease. 3. Nondistended fluid-filled loops of proximal small bowel which may reflect developing mild adynamic ileus. Cholangiopancreatography MRI 08/20/18 00:00 CONCLUSION: 1. Expected postoperative features of cholecystectomy with ill-defined trace fluid in the surgical bed but no focal drainable fluid collection. Patient was noted to have a small bile leak on HIDA scan. 2. Mildly prominent common bile duct measuring up to 8 mm without intrahepatic ductal dilatation. No focal CBD defect. GI Procedure 08/22/18 00:00 CONCLUSION: ERCP as above. Chest X-Ray 08/22/18 17:46 CONCLUSION: Mild basilar atelectasis right greater than left. No evidence of pneumothorax or rib fracture <Whit Cox - Last Filed: 08/24/18 17:04> - Labs CBC & Chem 7: 08/24/18 04:09 08/24/18 04:09 Laboratory Results - last 24 hr 08/24/18 08/24/18 08/24/18 04:09 04:09 07:34 WBC 14.2 H D RBC 4.67 Hgb 11.9 L Hct 38.0 L MCV 81.5 MCH 25.4 L MCHC 31.2 L RDW 16.8 Plt Count 307 MPV 7.2 Neut % (Auto) 83.5 H Lymph % (Auto) 8.4 L Daniels % (Auto) 7.4 Eos % (Auto) 0.2 Baso % (Auto) 0.5 Neut # (Auto) 11.8 H Lymph # (Auto) 1.2 Daniels # (Auto) 1.1 H Eos # (Auto) 0.0 Baso # (Auto) 0.1 WBC Differential . Differential Comment Auto diff final Sodium 139 Potassium 3.9 Chloride 104 Carbon Dioxide 27.7 Anion Gap 7 BUN 7 Creatinine 0.86 POC Glucose 146 H Random Glucose 101 Calcium 8.8 Total Bilirubin 0.4 Direct Bilirubin 0.1 Indirect Bilirubin 0.3 AST 14 L ALT 22 Alkaline Phosphatase 76 Total Protein 7.0 Albumin 2.3 L Lipase 2874 H 08/24/18 08/24/18 12:10 17:12 WBC RBC Hgb Hct MCV MCH MCHC RDW Plt Count MPV Neut % (Auto) Lymph % (Auto) Daniels % (Auto) Eos % (Auto) Baso % (Auto) Neut # (Auto) Lymph # (Auto) Daniels # (Auto) Eos # (Auto) Baso # (Auto) WBC Differential Differential Comment Sodium Potassium Chloride Carbon Dioxide Anion Gap BUN Creatinine POC Glucose 119 H 115 H Random Glucose Calcium Total Bilirubin Direct Bilirubin Indirect Bilirubin AST ALT Alkaline Phosphatase Total Protein Albumin Lipase Microbiology 08/19/18 12:08 Blood - Peripheral Aerobic Blood Culture - Final No growth in 5 days 08/19/18 12:08 Blood - Peripheral Anaerobic Blood Culture - Final No growth in 5 days 08/19/18 13:00 Blood - Peripheral Aerobic Blood Culture - Final No growth in 5 days 08/19/18 13:00 Blood - Peripheral Anaerobic Blood Culture - Final No growth in 5 days - Imaging Impressions Abdomen X-Ray 08/24/18 00:00 CONCLUSION: Moderate amount of stool within the colon suggesting constipation. No findings to indicate bowel obstruction. <Mendoza Ruiz - Last Filed: 08/24/18 20:40> Assessment and Plan - Plan This patient is a 57-year-old male with a recent history of cholecystitis and cholecystectomy done on 07/26/2018. Past medical history significant for anxiety and hypertension. Surgical history includes cholecystectomy, shoulder surgery and appendectomy. LAURI drain was placed at the time of the cholecystectomy on 07/26/2018. Patient was then discharged home with a drain in place. He was also given a prescription for Augmentin as the antibiotic. Patient presented to the emergency room at [facility] with complaint of right-sided abdominal pain with fevers and chills for 2 days. Patient also endorses noted decreased output from LAURI drain over the last 2 days. Upon consultation, patient reports right-sided abdominal pain surrounding LAURI site and noted decreased amounts of drainage over the last 48 hours. Patient endorses fevers with chills 101 F. Patient denies ever having had an EGD or colonoscopy in the past. States he smokes 1 pack/day and does not use alcohol products. Our service has been consulted to to evaluate patient for possible ERCP with stent placement Abdominal pain Suspected biliary infection/postop cholecystectomy Our service has been consulted to evaluate patient's need for possible ERCP with stent placement. 08/19/2018 CT abdomen and pelvis: 1. Expected postoperative features of cholecystectomy with surgical drain in the cholecystectomy bed. No focal drainable fluid collections or significant free fluid. 2. Diffusely decreased hepatic attenuation consistent with hepatic steatosis versus medical liver disease. 3. Nondistended fluid-filled loops of proximal small bowel which may reflect developing mild adynamic ileus. Cholangiopancreatography MRI 08/20/18 1. Expected postoperative features of cholecystectomy with ill-defined trace fluid in the surgical bed but no focal drainable fluid collection. Patient was noted to have a small bile leak on HIDA scan. 2. Mildly prominent common bile duct measuring up to 8 mm without intrahepatic ductal dilatation. No focal CBD defect. S/P ERCP/stent on 08/22/18 1. Normal appearing ampulla 2. Dilated CBD and CHD, No filling defects seen, No site of leak seen. 3. Plastic biliary stent placed 10F 9CM with good drainage. WBC 8.3 hemoglobin 11.8 total bilirubin and LFTs normalized - Elevated lipase- likely post ERCP pancreatitis lipase today is 4522 08/24/2018 Post ERCP Increasing pain, lipase 2874 improving-LAURI drain with scant amount of green drainage noted WBC 14.2 hemoglobin 11.9 hematocrit 38 total bilirubin 0.4 AST 14 ALT 22 alk phos 76 Plan -Clear liquid diet -Monitor liver function tests and lipase -Analgesic and antiemetics as per attending -Continue IV antibiotics -Supportive care -Further recommendations to follow This patient has been seen by myself and Dr. Ruiz and this note is written on his behalf - Attending Attestation Dr. Ruiz <Whit Cox - Last Filed: 08/24/18 17:04> - Attending Attestation Plan as above, slight improvement in pain and drop in lipase. Clear liquid diet and follow up clinically. <Mendoza Ruiz - Last Filed: 08/24/18 20:40>
[2018-08-25] MEDS: Sod Chloride 0.9% Inj 1,000 ML IV.CONT SCH ×4 (00:18→20:59)
[2018-08-25] MEDS: oxyCODONE/Acetaminophen 10/325 Tablet PO PRN ×4 (01:45→22:30)
[2018-08-25] MEDS: Acetaminophen 325 MG Tablet PO PRN (01:46)
[2018-08-25] MEDS: HYDROmorphone PF Inj 1 MG/ML Ampul IV.PUSH PRN ×4 (05:56→19:37)
[2018-08-25] MEDS: Vancomycin Inj 1,750 MG in Sodium Chlor 0.9% Inj 500 ML IV.SIG SCH ×2 (05:57→23:28)
[2018-08-25] MEDS: Piperacil/Tazo 3.375 GM Premix 50 ML IV.SIG SCH ×3 (05:57→21:00)
[2018-08-25 07:24] LABS: Baso # (Auto) 0.1 th/mm3 (0.0-0.2); Baso % (Auto) 0.5 % (0.0-2.0); Eos # (Auto) 0.1 th/mm3 (0.0-0.4); Eos % (Auto) 0.8 % (0.0-4.0); Hematocrit 32.4 % (39.0-51.0); Hemoglobin 10.5 gm/dL (13.0-17.0); Lymph # (Auto) 1.6 th/mm3 (1.0-4.8); Lymph % (Auto) 11.2 % (9.0-44.0); Mean Corpuscular HGB Conc 32.5 % (32.0-36.0); Mean Corpuscular Volume 79.8 fL (80.0-100.0); Mean Platelet Volume 6.8 fL (7.0-11.0); Mono # (Auto) 1.1 th/mm3 (0.0-0.9); Mono % (Auto) 7.5 % (0.0-8.0); Neut # (Auto) 11.6 th/mm3 (1.8-7.7); Platelet Count 254 th/mm3 (150-450); Red Blood Count 4.06 mil/mm3 (4.50-5.90); Red Cell Distribution Width 16.2 % (11.6-17.2); White Blood Count 14.4 th/mm3 (4.0-11.0)
[2018-08-25 07:54] LABS: Albumin 2.1 g/dL (3.4-5.0); Calcium 8.4 mg/dL (8.5-10.1); Carbon Dioxide 29.8 meq/L (21.0-32.0); Potassium 3.7 meq/L (3.5-5.1)
[2018-08-25 07:56] LABS: Total Protein 6.4 g/dL (6.4-8.2)
[2018-08-25] MEDS: Lisinopril 20 MG Tablet PO SCH (08:58)
[2018-08-25] MEDS: Senna/Docusate Sodium 8.6/50 MG Tablet PO SCH ×2 (08:58→20:59)
[2018-08-25] MEDS: lamoTRIgine 100 MG Tablet PO SCH (08:58)
--- NOTE | 2018-08-25 11:55 | P.PNGI ---
Subjective Interval history: Patient laying supine in bed Reports decreasing abdominal pain States tolerating clear liquid diet without nausea or vomiting <Whit Cox - Last Filed: 08/25/18 11:51> Physical Exam Vital signs: Vital Signs 08/24/18 12:00 08/24/18 16:00 08/24/18 20:00 Temperature 100.0 F H 98.5 F 100.1 F H Pulse Rate 88 83 95 H Respiratory Rate 18 18 20 Blood Pressure 160/76 H 164/89 H 164/94 H Pulse Oximetry 95 96 92 L 08/25/18 00:00 08/25/18 04:00 08/25/18 08:00 Temperature 102.7 F H 99 F 98.7 F Pulse Rate 100 H 93 H 90 Respiratory Rate 20 20 20 Blood Pressure 156/80 H 120/84 148/84 H Pulse Oximetry 93 L 94 L 99 Intake & Output 08/24/18 08/25/18 08/25/18 18:59 06:59 18:59 Intake Total 1567.5 / 1567.5 1680 / 1680 Output Total 300 / 300 700 / 700 Balance 1267.5 / 1267.5 980 / 980 Intake: IV 1567.5 / 1567.5 1050 / 1050 NS Inj 1,000 ML @ 150 mls/hr IV 1000 / 1000 1000 / 1000 .CONT .Q6H40M ENOC Rx#:[id number] Zosyn 3.375 GM Premix 50 ML @ 50 / 50 50 / 50 100 mls/hr IV.SIG Q8H ENOC Rx#: [id number] Vancomycin Inj 1,750 MG In NS 517.5 / 517.5 Inj 500 ML @ 258.75 mls/hr IV. SIG Q18H ENOC Rx#:[id number] Oral 630 / 630 Output: Urine 300 / 300 700 / 700 - Constitutional no acute distress, chronically ill appearing - Routine HEENT Exam Head: Present: normocephalic - Routine Respiratory Exam Present: CTA bilaterally - Routine Abdominal Exam Present: soft, normoactive bowel sounds, distended. Absent: tenderness - Routine Skin Exam Present: dry, warm - Routine Neurological Exam Present: alert - Routine Psychiatric Exam Present: normal affect, cooperative <Whit Cox - Last Filed: 08/25/18 11:51> Vital signs: Vital Signs 08/24/18 16:00 11/29/18 20:00 08/25/18 00:00 Temperature 98.5 F 100.1 F H 102.7 F H Pulse Rate 83 95 H 100 H Respiratory Rate 18 20 20 Blood Pressure 164/89 H 164/94 H 156/80 H Pulse Oximetry 96 92 L 93 L 08/25/18 04:00 08/25/18 08:00 Temperature 99 F 98.7 F Pulse Rate 93 H 90 Respiratory Rate 20 20 Blood Pressure 120/84 148/84 H Pulse Oximetry 94 L 99 Intake & Output 08/24/18 08/25/18 08/25/18 18:59 06:59 18:59 Intake Total 1567.5 / 1567.5 2730 / 2730 Output Total 300 / 300 700 / 700 Balance 1267.5 / 1267.5 2029 / 2029 Intake: IV 1567.5 / 1567.5 2099 / 2100 NS Inj 1,000 ML @ 150 mls/hr IV 1000 / 1000 2000 / 1999 .CONT .Q6H40M ENOC Rx#:[id number] Zosyn 3.375 GM Premix 50 ML @ 50 / 50 100 / 100 100 mls/hr IV.SIG Q8H NEOC Rx#: [id number] Vancomycin Inj 1,750 MG In NS 517.5 / 517.5 Inj 500 ML @ 258.75 mls/hr IV. SIG Q18H ENOC Rx#:[id number] Oral 630 / 630 Output: Urine 300 / 300 700 / 700 <Mendoza Ruiz A - Last Filed: 08/25/18 12:51> Results - Labs CBC & Chem 7: 08/25/18 06:17 08/25/18 06:17 Laboratory Results - last 24 hr 08/24/18 08/24/18 08/25/18 12:10 17:12 01:33 WBC RBC Hgb Hct MCV MCH MCHC RDW Plt Count MPV Neut % (Auto) Lymph % (Auto) [place] % (Auto) Eos % (Auto) Baso % (Auto) Neut # (Auto) Lymph # (Auto) [place] # (Auto) Eos # (Auto) Baso # (Auto) WBC Differential Differential Comment Sodium Potassium Chloride Carbon Dioxide Anion Gap BUN Creatinine Estimated GFR POC Glucose 119 H 115 H 92 Random Glucose Calcium Total Bilirubin Direct Bilirubin Indirect Bilirubin AST ALT Alkaline Phosphatase Total Protein Albumin Lipase 08/25/18 08/25/18 08/25/18 05:41 06:17 06:17 WBC 14.4 H RBC 4.06 L Hgb 10.5 L Hct 32.4 L MCV 79.8 L MCH 26.0 L MCHC 32.5 RDW 16.2 Plt Count 254 MPV 6.8 L Neut % (Auto) 80.0 H Lymph % (Auto) 11.2 [place] % (Auto) 7.5 Eos % (Auto) 0.8 Baso % (Auto) 0.5 Neut # (Auto) 11.6 H Lymph # (Auto) 1.6 [place] # (Auto) 1.1 H Eos # (Auto) 0.1 Baso # (Auto) 0.1 WBC Differential . Differential Comment Auto diff final Sodium 136 Potassium 3.7 Chloride 102 Carbon Dioxide 29.8 Anion Gap 4 L BUN 8 Creatinine 0.90 Estimated GFR 86 L POC Glucose 154 H Random Glucose 132 H Calcium 8.4 L Total Bilirubin 0.6 Direct Bilirubin 0.2 Indirect Bilirubin 0.4 AST 11 L ALT 17 Alkaline Phosphatase 70 Total Protein 6.4 D Albumin 2.1 L Lipase 359 Microbiology 08/19/18 12:08 Blood - Peripheral Aerobic Blood Culture - Final No growth in 5 days 08/19/18 12:08 Blood - Peripheral Anaerobic Blood Culture - Final No growth in 5 days 08/19/18 13:00 Blood - Peripheral Aerobic Blood Culture - Final No growth in 5 days 08/19/18 13:00 Blood - Peripheral Anaerobic Blood Culture - Final No growth in 5 days - Imaging Impressions Abdomen X-Ray 08/24/18 00:00 CONCLUSION: Moderate amount of stool within the colon suggesting constipation. No findings to indicate bowel obstruction. - Procedures MRCP 08/20/18 Abdomen/Pelvis CT 08/19/18 13:11 CONCLUSION: 1. Expected postoperative features of cholecystectomy with surgical drain in the cholecystectomy bed. No focal drainable fluid collections or significant free fluid. 2. Diffusely decreased hepatic attenuation consistent with hepatic steatosis versus medical liver disease. 3. Nondistended fluid-filled loops of proximal small bowel which may reflect developing mild adynamic ileus. Cholangiopancreatography MRI 08/20/18 00:00 CONCLUSION: 1. Expected postoperative features of cholecystectomy with ill-defined trace fluid in the surgical bed but no focal drainable fluid collection. Patient was noted to have a small bile leak on HIDA scan. 2. Mildly prominent common bile duct measuring up to 8 mm without intrahepatic ductal dilatation. No focal CBD defect. GI Procedure 08/22/18 00:00 CONCLUSION: ERCP as above. Chest X-Ray 08/22/18 17:46 CONCLUSION: Mild basilar atelectasis right greater than left. No evidence of pneumothorax or rib fracture <Whit Cox - Last Filed: 08/25/18 11:51> - Labs CBC & Chem 7: 08/25/18 06:17 08/25/18 06:17 Laboratory Results - last 24 hr 08/24/18 08/25/18 08/25/18 17:12 01:33 05:41 WBC RBC Hgb Hct MCV MCH MCHC RDW Plt Count MPV Neut % (Auto) Lymph % (Auto) [place] % (Auto) Eos % (Auto) Baso % (Auto) Neut # (Auto) Lymph # (Auto) [place] # (Auto) Eos # (Auto) Baso # (Auto) WBC Differential Differential Comment Sodium Potassium Chloride Carbon Dioxide Anion Gap BUN Creatinine Estimated GFR POC Glucose 115 H 92 154 H Random Glucose Calcium Total Bilirubin Direct Bilirubin Indirect Bilirubin AST ALT Alkaline Phosphatase Total Protein Albumin Lipase 08/25/18 08/25/18 06:17 06:17 WBC 14.4 H RBC 4.06 L Hgb 10.5 L Hct 32.4 L MCV 79.8 L MCH 26.0 L MCHC 32.5 RDW 16.2 Plt Count 254 MPV 6.8 L Neut % (Auto) 80.0 H Lymph % (Auto) 11.2 [place] % (Auto) 7.5 Eos % (Auto) 0.8 Baso % (Auto) 0.5 Neut # (Auto) 11.6 H Lymph # (Auto) 1.6 [place] # (Auto) 1.1 H Eos # (Auto) 0.1 Baso # (Auto) 0.1 WBC Differential . Differential Comment Auto diff final Sodium 136 Potassium 3.7 Chloride 102 Carbon Dioxide 29.8 Anion Gap 4 L BUN 8 Creatinine 0.90 Estimated GFR 86 L POC Glucose Random Glucose 132 H Calcium 8.4 L Total Bilirubin 0.6 Direct Bilirubin 0.2 Indirect Bilirubin 0.4 AST 11 L ALT 17 Alkaline Phosphatase 70 Total Protein 6.4 D Albumin 2.1 L Lipase 359 Microbiology 08/19/18 12:08 Blood - Peripheral Aerobic Blood Culture - Final No growth in 5 days 08/19/18 12:08 Blood - Peripheral Anaerobic Blood Culture - Final No growth in 5 days 08/19/18 13:00 Blood - Peripheral Aerobic Blood Culture - Final No growth in 5 days 08/19/18 13:00 Blood - Peripheral Anaerobic Blood Culture - Final No growth in 5 days - Imaging Impressions Abdomen X-Ray 08/24/18 00:00 CONCLUSION: Moderate amount of stool within the colon suggesting constipation. No findings to indicate bowel obstruction. <Mendoza Ruiz - Last Filed: 08/25/18 12:51> Assessment and Plan - Plan This patient is a 57-year-old male with a recent history of cholecystitis and cholecystectomy done on 07/26/2018. Past medical history significant for anxiety and hypertension. Surgical history includes cholecystectomy, shoulder surgery and appendectomy. LAURI drain was placed at the time of the cholecystectomy on 07/26/2018. Patient was then discharged home with a drain in place. He was also given a prescription for Augmentin as the antibiotic. Patient presented to the emergency room at [facility] with complaint of right-sided abdominal pain with fevers and chills for 2 days. Patient also endorses noted decreased output from LAURI drain over the last 2 days. Upon consultation, patient reports right-sided abdominal pain surrounding LAURI site and noted decreased amounts of drainage over the last 48 hours. Patient endorses fevers with chills 101 F. Patient denies ever having had an EGD or colonoscopy in the past. States he smokes 1 pack/day and does not use alcohol products. Our service has been consulted to to evaluate patient for possible ERCP with stent placement Abdominal pain Suspected biliary infection/postop cholecystectomy Our service has been consulted to evaluate patient's need for possible ERCP with stent placement. 08/19/2018 CT abdomen and pelvis: 1. Expected postoperative features of cholecystectomy with surgical drain in the cholecystectomy bed. No focal drainable fluid collections or significant free fluid. 2. Diffusely decreased hepatic attenuation consistent with hepatic steatosis versus medical liver disease. 3. Nondistended fluid-filled loops of proximal small bowel which may reflect developing mild adynamic ileus. Cholangiopancreatography MRI 08/20/18 1. Expected postoperative features of cholecystectomy with ill-defined trace fluid in the surgical bed but no focal drainable fluid collection. Patient was noted to have a small bile leak on HIDA scan. 2. Mildly prominent common bile duct measuring up to 8 mm without intrahepatic ductal dilatation. No focal CBD defect. S/P ERCP/stent on 08/22/18 1. Normal appearing ampulla 2. Dilated CBD and CHD, No filling defects seen, No site of leak seen. 3. Plastic biliary stent placed 10F 9CM with good drainage. WBC 8.3 hemoglobin 11.8 total bilirubin and LFTs normalized - Elevated lipase- likely post ERCP pancreatitis lipase today is [id number] 08/24/2018 Post ERCP Increasing pain, lipase 2874 improving-LAURI drain with scant amount of green drainage noted WBC 14.2 hemoglobin 11.9 hematocrit 38 total bilirubin 0.4 AST 14 ALT 22 alk phos 76 08/25/2018 Patient reports decreasing abdominal discomfort Lipase within normal limits 359 Hemoglobin 10.5 hematocrit 32.4 platelet count 254 Plan -Clear liquid diet -Monitor liver function tests and lipase -Analgesic and antiemetics as per attending - IV antibiotics -Supportive care -Further recommendations to follow This patient has been seen by myself and Dr. Ruiz and this note is written on his behalf - Attending Attestation Dr. Ruiz <Whit Cox - Last Filed: 08/25/18 11:51> - Attending Attestation As above, agree with the paln. Minimal pain at this point, labs normalized. Stable from GI point of view. Please notify us if needed again. Will need out patient follow up and stent removal within 8 weeks. <Mendoza Ruiz - Last Filed: 08/25/18 12:51>
--- NOTE | 2018-08-25 12:11 | P.PN ---
Subjective Interval history: Still painful and using IV Dilaudid. Family at bedside. Discussed this with them and asked him to minimize the use of IV pain meds so that he can go home. Physical Exam Vital signs: Vital Signs 08/24/18 16:00 08/24/18 20:00 08/25/18 00:00 Temperature 98.5 F 100.1 F H 102.7 F H Pulse Rate 83 95 H 100 H Respiratory Rate 18 20 20 Blood Pressure 164/89 H 164/94 H 156/80 H Pulse Oximetry 96 92 L 93 L 08/25/18 04:00 08/25/18 08:00 Temperature 99 F 98.7 F Pulse Rate 93 H 90 Respiratory Rate 20 20 Blood Pressure 120/84 148/84 H Pulse Oximetry 94 L 99 Intake & Output 08/24/18 08/25/18 08/25/18 18:59 06:59 18:59 Intake Total 1567.5 / 1567.5 1680 / 1680 Output Total 300 / 300 700 / 700 Balance 1267.5 / 1267.5 980 / 980 Intake: IV 1567.5 / 1567.5 1050 / 1050 NS Inj 1,000 ML @ 150 mls/hr IV 1000 / 1000 1000 / 1000 .CONT .Q6H40M ENOC Rx#:[id number] Zosyn 3.375 GM Premix 50 ML @ 50 / 50 50 / 50 100 mls/hr IV.SIG Q8H NEOC Rx#: [id number] Vancomycin Inj 1,750 MG In NS 517.5 / 517.5 Inj 500 ML @ 258.75 mls/hr IV. SIG Q18H ENOC Rx#:[id number] Oral 630 / 630 Output: Urine 300 / 300 700 / 700 - Constitutional mild distress - Routine Respiratory Exam Present: CTA bilaterally - Routine Cardiovascular Exam Present: RRR - Routine Abdominal Exam Present: soft, tenderness, distended Results - Labs CBC & Chem 7: 08/25/18 06:17 08/25/18 06:17 Laboratory Results - last 24 hr 08/24/18 08/24/18 08/25/18 12:10 17:12 01:33 WBC RBC Hgb Hct MCV MCH MCHC RDW Plt Count MPV Neut % (Auto) Lymph % (Auto) [place] % (Auto) Eos % (Auto) Baso % (Auto) Neut # (Auto) Lymph # (Auto) [place] # (Auto) Eos # (Auto) Baso # (Auto) WBC Differential Differential Comment Sodium Potassium Chloride Carbon Dioxide Anion Gap BUN Creatinine Estimated GFR POC Glucose 119 H 115 H 92 Random Glucose Calcium Total Bilirubin Direct Bilirubin Indirect Bilirubin AST ALT Alkaline Phosphatase Total Protein Albumin Lipase 08/25/18 08/25/18 08/25/18 05:41 06:17 06:17 WBC 14.4 H RBC 4.06 L Hgb 10.5 L Hct 32.4 L MCV 79.8 L MCH 26.0 L MCHC 32.5 RDW 16.2 Plt Count 254 MPV 6.8 L Neut % (Auto) 80.0 H Lymph % (Auto) 11.2 [place] % (Auto) 7.5 Eos % (Auto) 0.8 Baso % (Auto) 0.5 Neut # (Auto) 11.6 H Lymph # (Auto) 1.6 [place] # (Auto) 1.1 H Eos # (Auto) 0.1 Baso # (Auto) 0.1 WBC Differential . Differential Comment Auto diff final Sodium 136 Potassium 3.7 Chloride 102 Carbon Dioxide 29.8 Anion Gap 4 L BUN 8 Creatinine 0.90 Estimated GFR 86 L POC Glucose 154 H Random Glucose 132 H Calcium 8.4 L Total Bilirubin 0.6 Direct Bilirubin 0.2 Indirect Bilirubin 0.4 AST 11 L ALT 17 Alkaline Phosphatase 70 Total Protein 6.4 D Albumin 2.1 L Lipase 359 Microbiology 08/19/18 12:08 Blood - Peripheral Aerobic Blood Culture - Final No growth in 5 days 08/19/18 12:08 Blood - Peripheral Anaerobic Blood Culture - Final No growth in 5 days 08/19/18 13:00 Blood - Peripheral Aerobic Blood Culture - Final No growth in 5 days 08/19/18 13:00 Blood - Peripheral Anaerobic Blood Culture - Final No growth in 5 days - Imaging Impressions Abdomen X-Ray 08/24/18 00:00 CONCLUSION: Moderate amount of stool within the colon suggesting constipation. No findings to indicate bowel obstruction. - Procedures MRCP 08/20/18 Abdomen/Pelvis CT 08/19/18 13:11 CONCLUSION: 1. Expected postoperative features of cholecystectomy with surgical drain in the cholecystectomy bed. No focal drainable fluid collections or significant free fluid. 2. Diffusely decreased hepatic attenuation consistent with hepatic steatosis versus medical liver disease. 3. Nondistended fluid-filled loops of proximal small bowel which may reflect developing mild adynamic ileus. Cholangiopancreatography MRI 08/20/18 00:00 CONCLUSION: 1. Expected postoperative features of cholecystectomy with ill-defined trace fluid in the surgical bed but no focal drainable fluid collection. Patient was noted to have a small bile leak on HIDA scan. 2. Mildly prominent common bile duct measuring up to 8 mm without intrahepatic ductal dilatation. No focal CBD defect. GI Procedure 08/22/18 00:00 CONCLUSION: ERCP as above. Chest X-Ray 08/22/18 17:46 CONCLUSION: Mild basilar atelectasis right greater than left. No evidence of pneumothorax or rib fracture Assessment and Plan - Assessment (1) Sepsis Code(s): A41.9 - Sepsis, unspecified organism Status: Acute Plan: Antibiotics GI consult for stent placement We will leave drain in until LAURI output drops significantly; I expect this to occur after the stent is placed to allow for preferential drainage through the common bile duct rather than through the cystic duct stump. Will need to stay in house to receive needed treatment. The exam, history, and the medical decision-making described in the above note were completed with the assistance of the mid-level provider. I reviewed and agree with the findings presented. I attest that I had a [id number] encounter with the patient on the same day, and personally performed and documented my assessment and findings in the medical record. (1) Sepsis Qualifiers: Sepsis type: sepsis due to unspecified organism Qualified Code(s): A41.9 - Sepsis, unspecified organism
[2018-08-25] MEDS: Sodium Chloride 0.9% 2 ML Flush BID IV.FLUSH SCH ×2 (12:15→21:00)
--- NOTE | 2018-08-25 14:18 | P.PNIM ---
Subjective Interval history: The pt said that he was still in pain and requested stronger pain meds. He said he's not eating much. He said his drain was removed. Discussed with nursing. Physical Exam Vital signs: Vital Signs 08/24/18 16:00 08/24/18 20:00 08/25/18 00:00 Temperature 98.5 F 100.1 F H 102.7 F H Pulse Rate 83 95 H 100 H Respiratory Rate 18 20 20 Blood Pressure 164/89 H 164/94 H 156/80 H Pulse Oximetry 96 92 L 93 L 08/25/18 04:00 08/25/18 08:00 Temperature 99 F 98.7 F Pulse Rate 93 H 90 Respiratory Rate 20 20 Blood Pressure 120/84 148/84 H Pulse Oximetry 94 L 99 Intake & Output 08/24/18 08/25/18 08/25/18 18:59 06:59 18:59 Intake Total 1567.5 / 1567.5 2730 / 2730 Output Total 300 / 300 700 / 700 Balance 1267.5 / 1267.5 2029 / 2029 Intake: IV 1567.5 / 1567.5 2100 / 2100 NS Inj 1,000 ML @ 150 mls/hr IV 1000 / 1000 2000 / 2000 .CONT .Q6H40M ENOC Rx#:[id number] Zosyn 3.375 GM Premix 50 ML @ 50 / 50 100 / 100 100 mls/hr IV.SIG Q8H ENOC Rx#: [id number] Vancomycin Inj 1,750 MG In NS 517.5 / 517.5 Inj 500 ML @ 258.75 mls/hr IV. SIG Q18H ENOC Rx#:[id number] Oral 630 / 630 Output: Urine 300 / 300 700 / 700 Narrative: GENERAL: Morbid obesity, NAD. HEAD: Normocephalic. NECK: Supple, trachea midline. No lymphadenopathy. CARDIOVASCULAR: Regular rate and rhythm without murmurs, gallops, or rubs. RESPIRATORY: Breath sounds equal bilaterally. No accessory muscle use. GASTROINTESTINAL: Obese abdomen, generalized tenderness. Biliary drain removed. +BS. MUSCULOSKELETAL: No cyanosis, or edema. SKIN: Warm and dry. NEURO: No focal neurological deficits. PSYCH: Mildly agitated. Results - Labs CBC & Chem 7: 08/25/18 06:17 08/25/18 06:17 Laboratory Results - last 24 hr 08/24/18 08/25/18 08/25/18 17:12 01:33 05:41 WBC RBC Hgb Hct MCV MCH MCHC RDW Plt Count MPV Neut % (Auto) Lymph % (Auto) [place] % (Auto) Eos % (Auto) Baso % (Auto) Neut # (Auto) Lymph # (Auto) [place] # (Auto) Eos # (Auto) Baso # (Auto) WBC Differential Differential Comment Sodium Potassium Chloride Carbon Dioxide Anion Gap BUN Creatinine Estimated GFR POC Glucose 115 H 92 154 H Random Glucose Calcium Total Bilirubin Direct Bilirubin Indirect Bilirubin AST ALT Alkaline Phosphatase Total Protein Albumin Lipase 08/25/18 08/25/18 06:17 06:17 WBC 14.4 H RBC 4.06 L Hgb 10.5 L Hct 32.4 L MCV 79.8 L MCH 26.0 L MCHC 32.5 RDW 16.2 Plt Count 254 MPV 6.8 L Neut % (Auto) 80.0 H Lymph % (Auto) 11.2 [place] % (Auto) 7.5 Eos % (Auto) 0.8 Baso % (Auto) 0.5 Neut # (Auto) 11.6 H Lymph # (Auto) 1.6 [place] # (Auto) 1.1 H Eos # (Auto) 0.1 Baso # (Auto) 0.1 WBC Differential . Differential Comment Auto diff final Sodium 136 Potassium 3.7 Chloride 102 Carbon Dioxide 29.8 Anion Gap 4 L BUN 8 Creatinine 0.90 Estimated GFR 86 L POC Glucose Random Glucose 132 H Calcium 8.4 L Total Bilirubin 0.6 Direct Bilirubin 0.2 Indirect Bilirubin 0.4 AST 11 L ALT 17 Alkaline Phosphatase 70 Total Protein 6.4 D Albumin 2.1 L Lipase 359 Microbiology 08/19/18 12:08 Blood - Peripheral Aerobic Blood Culture - Final No growth in 5 days 08/19/18 12:08 Blood - Peripheral Anaerobic Blood Culture - Final No growth in 5 days 08/19/18 13:00 Blood - Peripheral Aerobic Blood Culture - Final No growth in 5 days 08/19/18 13:00 Blood - Peripheral Anaerobic Blood Culture - Final No growth in 5 days - Imaging Impressions Abdomen X-Ray 08/24/18 00:00 CONCLUSION: Moderate amount of stool within the colon suggesting constipation. No findings to indicate bowel obstruction. - Procedures MRCP 08/20/18 Abdomen/Pelvis CT 08/19/18 13:11 CONCLUSION: 1. Expected postoperative features of cholecystectomy with surgical drain in the cholecystectomy bed. No focal drainable fluid collections or significant free fluid. 2. Diffusely decreased hepatic attenuation consistent with hepatic steatosis versus medical liver disease. 3. Nondistended fluid-filled loops of proximal small bowel which may reflect developing mild adynamic ileus. Cholangiopancreatography MRI 08/20/18 00:00 CONCLUSION: 1. Expected postoperative features of cholecystectomy with ill-defined trace fluid in the surgical bed but no focal drainable fluid collection. Patient was noted to have a small bile leak on HIDA scan. 2. Mildly prominent common bile duct measuring up to 8 mm without intrahepatic ductal dilatation. No focal CBD defect. GI Procedure 08/22/18 00:00 CONCLUSION: ERCP as above. Chest X-Ray 08/22/18 17:46 CONCLUSION: Mild basilar atelectasis right greater than left. No evidence of pneumothorax or rib fracture Assessment and Plan - Plan 57-year-old male admitted secondary to acute abdominal pain and sepsis status post cholecystectomy with drain present. Status post cholecystectomy Biliary drain obstruction Abdomen infection Sepsis Continue Vancomycin, Zosyn and Probiotics. Seen by General psychological operations specialist recommended to consult GI specialist for stent placement, leave drain in until LAURI output drops significantly, expect this to occur after the stent is placed to allow for preferential drainage through the common bile duct rather than through the cystic duct stump Status post MRCP found small bile leak on HIDA scan, Mildly prominent common bile duct measuring up to 8 mm without intrahepatic ductal dilatation. No focal CBD defect, recommended by GI specialist for ERCP, to continue antibiotics, due to Sepsis, suspected biliary infection post Op Cholecystectomy. -s/p ERCP with stent placement 08/22. -repeat KUB stable. -Follow up with GI and surgery. Fever Pt spiked temp of 102.7 08/25. -harper-culture. -continue antibiotics (vanco and Zosyn). -consult ID if persists. Acute pancreatitis Likely s/t ERCP. Lipase over 4000, now normal. LFTs unremarkable. -continue IVFs. -pain control and antiemetics as needed. -clear liquid diet. -GI following. Hypertension Exacerbated by pain. -pain control. -increased lisinopril. -clonidine prn. Tobacco dependence -Strongly recommended to stop smoking Constipation -Increase bowel regimen. Anemia Hemoglobin stable at this time. -follow CBC. DVT prophylaxis SCDs Discharge Planning: Await surgical clearance. Fever work-up pending.
--- NOTE | 2018-08-25 14:38 | XR ---
EXAM DATE: 08/25/2018 2:35 PM EST AGE/SEX: 57 years / Male INDICATIONS: Fever and shortness of breath. CLINICAL DATA: This is the patient's subsequent encounter. Patient reports that signs and symptoms h ave been present for 3 days and indicates a pain score of 0/10. MEDICAL/SURGICAL HISTORY: Hypertension. None. COMPARISON: [facility] [place], CHEST 1V SINGLE AP, 08/22/2018. . FINDINGS: Mild vascular congestion and mild bibasilar opacity similar to prior. Cardiac contours are unchanged. CONCLUSION: Little change from prior exam Electronically signed by: John Paul Calvin MD 08/25/2018 2:37 PM EST
[2018-08-25 18:55] LABS: Bilirubin,Urine Negative (Negative); Clarity,Urine Clear (Clear); Color,Urine Yellow (Yellw/Straw); Glucose,Urine (UA) Negative (Negative); Leukocyte Esterase,Urine Negative (Negative); Nitrite,Urine Negative (Negative); Specific Gravity,Urine 1.016 (1.002-1.035)
[2018-08-25] MEDS ORDERED: Pharmacy Ordered Lab Info OTHER ONE (23:45)
[2018-08-26 00:17] LABS: Albumin 2.1 g/dL (3.4-5.0); Anion Gap 6 meq/L (5-15); Aspartate Aminotransferase 14 U/L (15-37); Blood Urea Nitrogen 7 mg/dL (7-18); Calcium 8.9 mg/dL (8.5-10.1); Carbon Dioxide 25.1 meq/L (21.0-32.0); Chloride 103 meq/L (98-107); Glomerular Filtration Rate Greater Than 89 mL/min (>89); Glucose,Random 128 mg/dL (74-106); Potassium 3.7 meq/L (3.5-5.1); Sodium 134 meq/L (136-145)
[2018-08-26 00:19] LABS: Alanine Aminotransferase 16 U/L (12-78)
[2018-08-26 00:20] LABS: Alkaline Phosphatase 74 U/L (45-117); Total Protein 6.8 g/dL (6.4-8.2); Vancomycin,Trough 7.6 mcg/mL (5.0-10.0)
[2018-08-26] MEDS: HYDROmorphone PF Inj 1 MG/ML Ampul IV.PUSH PRN ×5 (01:03→21:53)
[2018-08-26] MEDS: oxyCODONE/Acetaminophen 10/325 Tablet PO PRN ×4 (03:45→19:27)
[2018-08-26] MEDS: Piperacil/Tazo 3.375 GM Premix 50 ML IV.SIG SCH ×3 (04:14→21:41)
[2018-08-26] MEDS: Acetaminophen 325 MG Tablet PO PRN (04:35)
[2018-08-26 06:50] LABS: Baso % (Auto) 0.3 % (0.0-2.0); Eos # (Auto) 0.5 th/mm3 (0.0-0.4); Eos % (Auto) 4.1 % (0.0-4.0); Lymph # (Auto) 1.2 th/mm3 (1.0-4.8); Lymph % (Auto) 10.1 % (9.0-44.0); Mean Corpuscular HGB Conc 33.5 % (32.0-36.0); Mean Corpuscular Hemoglobin 26.9 pg (27.0-34.0); Mean Corpuscular Volume 80.3 fL (80.0-100.0); Mean Platelet Volume 6.9 fL (7.0-11.0); Mono # (Auto) 0.8 th/mm3 (0.0-0.9); Mono % (Auto) 6.5 % (0.0-8.0); Neut # (Auto) 9.8 th/mm3 (1.8-7.7); Platelet Count 289 th/mm3 (150-450); Red Blood Count 3.73 mil/mm3 (4.50-5.90); Red Cell Distribution Width 16.2 % (11.6-17.2); White Blood Count 12.4 th/mm3 (4.0-11.0)
[2018-08-26] MEDS: lamoTRIgine 100 MG Tablet PO SCH (10:11)
[2018-08-26] MEDS: Sodium Chloride 0.9% 2 ML Flush BID IV.FLUSH SCH ×2 (10:12→21:43)
[2018-08-26] MEDS: Senna/Docusate Sodium 8.6/50 MG Tablet PO SCH ×2 (10:12→21:49)
[2018-08-26] MEDS: Sod Chloride 0.9% Inj 1,000 ML IV.CONT SCH ×3 (10:12→17:23)
[2018-08-26] MEDS: Lisinopril 20 MG Tablet PO SCH (10:12)
--- NOTE | 2018-08-26 10:59 | P.PNIM ---
Subjective Interval history: Follow-up for acute abdominal pain and sepsis status post cholecystectomy. Patient seen and examined,lying in bed, c/o of abdominal pain, not getting better. Denies any associated nausea or vomiting. Complaints of constipation with no BM for almost 8 days?. Discussed and confirmed with nurse with no documentation of bowel movement. Patient states that he is taking half a bottle of milk of magnesia before he had bowel movement. Patient denies any fever or chills, denies any chest pain or shortness of breath. Discussed will do x-ray of the abdomen, and milk of magnesia now discussed with nurse and patient Physical Exam Vital signs: Vital Signs 08/25/18 12:00 08/25/18 16:00 08/25/18 20:00 Temperature 98.7 F 99.1 F 99.9 F H Pulse Rate 83 74 80 Respiratory Rate 18 18 18 Blood Pressure 161/88 H 151/79 H 145/85 H Pulse Oximetry 93 L 96 96 08/26/18 00:00 08/26/18 01:47 08/26/18 04:00 Temperature 98.9 F 100.7 F H Pulse Rate 87 97 H Respiratory Rate 17 16 18 Blood Pressure 144/77 H Pulse Oximetry 92 L 92 L 08/26/18 08:00 Temperature 98.6 F Pulse Rate 77 Respiratory Rate 22 Blood Pressure 115/62 Pulse Oximetry 92 L Intake & Output 08/25/18 08/26/18 08/26/18 18:59 06:59 18:59 Intake Total 1567.5 / 1567.5 2217.5 / 2217.5 Output Total 1550 / 1550 800 / 800 Balance 17.5 / 17.5 1417.5 / 1417.5 Weight 149 kg Intake: IV 1567.5 / 1567.5 1617.5 / 1617.5 NS Inj 1,000 ML @ 150 mls/hr IV 1000 / 1000 1000 / 1000 .CONT .Q6H40M ENOC Rx#:[id number] Zosyn 3.375 GM Premix 50 ML @ 50 / 50 100 / 100 100 mls/hr IV.SIG Q8H ENOC Rx#: [id number] Vancomycin Inj 1,750 MG In NS 517.5 / 517.5 517.5 / 517.5 Inj 500 ML @ 258.75 mls/hr IV. SIG Q18H ENOC Rx#:[id number] Oral 600 / 600 Output: Urine 1550 / 1550 800 / 800 Other: # Voids 2 Narrative: GENERAL: Well-developed, well-nourished, obese male, in no apparent distress SKIN: Warm and dry. HEAD: Atraumatic. Normocephalic. EYES: Pupils equal and round. No scleral icterus. No injection or drainage. ENT: No nasal bleeding or discharge. Mucous membranes pink and moist. NECK: Trachea midline. No JVD. CARDIOVASCULAR: Regular rate and rhythm. RESPIRATORY: No accessory muscle use. Clear to auscultation. Breath sounds equal bilaterally. GASTROINTESTINAL: Abdomen obese, distended, with abdominal tenderness. Multiple abdominal incisions healing well, right upper, right lower and mid lower MUSCULOSKELETAL: Extremities without clubbing, cyanosis, or edema. No obvious deformities. NEUROLOGICAL: Awake and alert. No obvious cranial nerve deficits. Motor grossly within normal limits. Five out of 5 muscle strength in the arms and legs. Normal speech. PSYCHIATRIC: Appropriate mood and affect; insight and judgment normal. Results - Labs CBC & Chem 7: 08/26/18 04:34 08/25/18 23:30 Laboratory Results - last 24 hr 08/25/18 08/25/18 08/25/18 18:25 23:21 23:30 WBC RBC Hgb Hct MCV MCH MCHC RDW Plt Count MPV Neut % (Auto) Lymph % (Auto) [place] % (Auto) Eos % (Auto) Baso % (Auto) Neut # (Auto) Lymph # (Auto) [place] # (Auto) Eos # (Auto) Baso # (Auto) WBC Differential Differential Comment Sodium 134 L Potassium 3.7 Chloride 103 Carbon Dioxide 25.1 Anion Gap 6 BUN 7 Creatinine 0.87 Estimated GFR Greater than 89 POC Glucose 138 H Random Glucose 128 H Calcium 8.9 Total Bilirubin 0.4 Direct Bilirubin 0.1 Indirect Bilirubin 0.3 AST 14 L ALT 16 Alkaline Phosphatase 74 Total Protein 6.8 Albumin 2.1 L Urine Color Yellow Urine Clarity Clear Urine pH 6.0 Ur Specific [place] 1.016 Urine Protein Negative Urine Glucose (UA) Negative Urine Ketones Negative Urine Occult Blood Negative Urine Nitrate Negative Urine Bilirubin Negative Urine Urobilinogen Less than 2 Ur Leukocyte Esterase Negative Micro UA Comment Culture not ind Ur Microscopic Review Not Reportable Urine Culture Comments Culture not ind Vancomycin Trough 7.6 08/26/18 08/26/18 04:34 05:14 WBC 12.4 H RBC 3.73 L Hgb 10.0 L Hct 30.0 L MCV 80.3 MCH 26.9 L MCHC 33.5 RDW 16.2 Plt Count 289 MPV 6.9 L Neut % (Auto) 79.0 H Lymph % (Auto) 10.1 [place] % (Auto) 6.5 Eos % (Auto) 4.1 H Baso % (Auto) 0.3 Neut # (Auto) 9.8 H Lymph # (Auto) 1.2 [place] # (Auto) 0.8 Eos # (Auto) 0.5 H Baso # (Auto) 0.0 WBC Differential . Differential Comment Auto diff final Sodium Potassium Chloride Carbon Dioxide Anion Gap BUN Creatinine Estimated GFR POC Glucose 127 H Random Glucose Calcium Total Bilirubin Direct Bilirubin Indirect Bilirubin AST ALT Alkaline Phosphatase Total Protein Albumin Urine Color Urine Clarity Urine pH Ur Specific [place] Urine Protein Urine Glucose (UA) Urine Ketones Urine Occult Blood Urine Nitrate Urine Bilirubin Urine Urobilinogen Ur Leukocyte Esterase Micro UA Comment Ur Microscopic Review Urine Culture Comments Vancomycin Trough - Imaging Impressions Chest X-Ray 08/25/18 00:00 CONCLUSION: Little change from prior exam - Procedures MRCP 08/20/18 Abdomen/Pelvis CT 08/19/18 13:11 CONCLUSION: 1. Expected postoperative features of cholecystectomy with surgical drain in the cholecystectomy bed. No focal drainable fluid collections or significant free fluid. 2. Diffusely decreased hepatic attenuation consistent with hepatic steatosis versus medical liver disease. 3. Nondistended fluid-filled loops of proximal small bowel which may reflect developing mild adynamic ileus. Cholangiopancreatography MRI 08/20/18 00:00 CONCLUSION: 1. Expected postoperative features of cholecystectomy with ill-defined trace fluid in the surgical bed but no focal drainable fluid collection. Patient was noted to have a small bile leak on HIDA scan. 2. Mildly prominent common bile duct measuring up to 8 mm without intrahepatic ductal dilatation. No focal CBD defect. GI Procedure 08/22/18 00:00 CONCLUSION: ERCP as above. Chest X-Ray 08/22/18 17:46 CONCLUSION: Mild basilar atelectasis right greater than left. No evidence of pneumothorax or rib fracture Assessment and Plan - Assessment (1) Acute cholecystitis Code(s): K81.0 - Acute cholecystitis Status: Acute (2) Hypertension Code(s): I10 - Essential (primary) hypertension Status: Acute (3) Anxiety Code(s): F41.9 - Anxiety disorder, unspecified Status: Acute (4) Acute gangrenous cholecystitis Code(s): K81.0 - Acute cholecystitis Status: Acute (5) Sepsis Code(s): A41.9 - Sepsis, unspecified organism Status: Acute - Plan 57-year-old male admitted secondary to acute abdominal pain and sepsis status post cholecystectomy. Status post cholecystectomy Biliary drain obstruction Abdomen infection Sepsis Continue Vancomycin, Zosyn and Probiotics. -Status post MRCP found small bile leak on HIDA scan, Mildly prominent common bile duct measuring up to 8 mm without intrahepatic ductal dilatation. No focal CBD defect, recommended by GI specialist for ERCP, to continue antibiotics, due to Sepsis, suspected biliary infection post Op Cholecystectomy. -s/p ERCP with stent placement 08/22. -Status post LAURI drain removal 08/25/2018 -Follow up with GI and surgery. -Abdominal distention and tenderness, repeat KUB today Fever With leukocytosis, likely related to abdominal infection/suspected biliary infection status post cholecystectomy Pt spiked temp of 102.7 08/25. -harper-culture. -continue IV antibiotics vancomycin and Zosyn -consult ID if persists -Follow blood culture :pending results Acute pancreatitis Likely s/t ERCP. Lipase over 4000, now normal. LFTs unremarkable. -continue IVFs. -pain control and antiemetics as needed. -clear liquid diet. -GI following. Hypertension Exacerbated by pain. -pain control. -Continue increased dose of lisinopril. -Continue clonidine prn. -Blood pressure improving, monitor blood pressure, adjust medication as necessary Tobacco dependence -Counseled patient on smoking cessation Constipation -Increase bowel regimen. Lactulose, senna/docusate -Give milk of magnesia today -KUB to rule out ileus Anemia Hemoglobin stable at this time. -follow CBC. DVT prophylaxis: SCDs Code Status: full code Discussed Condition With: patient and nurse (5) Sepsis Qualifiers: Sepsis type: sepsis due to unspecified organism Qualified Code(s): A41.9 - Sepsis, unspecified organism
[2018-08-26] MEDS: Vancomycin Inj 1,750 MG in Sodium Chlor 0.9% Inj 500 ML IV.SIG SCH ×2 (13:08→23:12)
--- NOTE | 2018-08-26 15:23 | XR ---
EXAM DATE: 08/26/2018 2:53 PM EST AGE/SEX: 57 years / Male INDICATIONS: Abdominal distention and pain, constipation. CLINICAL DATA: This is the patient's subsequent encounter. Patient reports that signs and symptoms h ave been present for 1 week and indicates a pain score of 9/10. MEDICAL/SURGICAL HISTORY: Hypertension. Cholecystectomy. Appendectomy. COMPARISON: [facility] [place], ABDOMEN 1V KUB, 08/24/2018. . FINDINGS: Internal biliary stent is noted. Surgical clips are noted within the right upper quadrant likely rel ated to cholecystectomy. No evidence of bowel obstruction or ileus is noted. Degenerative changes and scoliosis of the thoracolumbar spine are noted. Degenerative changes are noted involving left hip robbie int. CONCLUSION: 1. No evidence of bowel obstruction or ileus. 2. Degenerative changes and scoliosis of the thoracolumbar spine. 3. Degenerative changes involving the left hip joint. Electronically signed by: Masoud Del Cid MD 08/26/2018 3:22 PM EST
--- NOTE | 2018-08-26 17:00 | P.PN ---
Subjective Interval history: Still complaining of pain on the right side of his abdomen. Physical Exam Vital signs: Vital Signs 08/25/18 20:00 08/26/18 00:00 08/26/18 01:47 Temperature 99.9 F H 98.9 F Pulse Rate 80 87 Respiratory Rate 18 17 16 Blood Pressure 145/85 H 144/77 H Pulse Oximetry 96 92 L 08/26/18 04:00 08/26/18 08:00 08/26/18 12:00 Temperature 100.7 F H 98.6 F 100.2 F H Pulse Rate 97 H 77 84 Respiratory Rate 18 22 18 Blood Pressure 115/62 108/54 L Pulse Oximetry 92 L 92 L 95 Intake & Output 08/25/18 08/26/18 08/26/18 18:59 06:59 18:59 Intake Total 1567.5 / 1567.5 2217.5 / 2217.5 567.5 / 567.5 Output Total 1550 / 1550 800 / 800 Balance 17.5 / 17.5 1417.5 / 1417.5 567.5 / 567.5 Weight 149 kg Intake: IV 1567.5 / 1567.5 1617.5 / 1617.5 567.5 / 567.5 NS Inj 1,000 ML @ 150 mls/hr IV 1000 / 1000 1000 / 1000 .CONT .Q6H40M ENOC Rx#:[id number] Zosyn 3.375 GM Premix 50 ML @ 50 / 50 100 / 100 50 / 50 100 mls/hr IV.SIG Q8H ENOC Rx#: [id number] Vancomycin Inj 1,750 MG In NS 517.5 / 517.5 517.5 / 517.5 517.5 / 517.5 Inj 500 ML @ 258.75 mls/hr IV. SIG Q12H ENOC Rx#:[id number] Oral 600 / 600 Output: Urine 1550 / 1550 800 / 800 Other: # Voids 2 Date of Last Bowel Movement 08/26/18 # Bowel Movements 1 # Incontinent Bowel Movements 0 - Routine Abdominal Exam Present: soft, tenderness (Minimal without guarding), distended, wound (Clean without drainage) Results - Labs CBC & Chem 7: 08/26/18 04:34 08/25/18 23:30 Laboratory Results - last 24 hr 1108/25/18 08/25/18 18:25 23:21 23:30 WBC RBC Hgb Hct MCV MCH MCHC RDW Plt Count MPV Neut % (Auto) Lymph % (Auto) [place] % (Auto) Eos % (Auto) Baso % (Auto) Neut # (Auto) Lymph # (Auto) [place] # (Auto) Eos # (Auto) Baso # (Auto) WBC Differential Differential Comment Sodium 134 L Potassium 3.7 Chloride 103 Carbon Dioxide 25.1 Anion Gap 6 BUN 7 Creatinine 0.87 Estimated GFR Greater than 89 POC Glucose 138 H Random Glucose 128 H Calcium 8.9 Total Bilirubin 0.4 Direct Bilirubin 0.1 Indirect Bilirubin 0.3 AST 14 L ALT 16 Alkaline Phosphatase 74 Total Protein 6.8 Albumin 2.1 L Urine Color Yellow Urine Clarity Clear Urine pH 6.0 Ur Specific [place] 1.016 Urine Protein Negative Urine Glucose (UA) Negative Urine Ketones Negative Urine Occult Blood Negative Urine Nitrate Negative Urine Bilirubin Negative Urine Urobilinogen Less than 2 Ur Leukocyte Esterase Negative Micro UA Comment Culture not ind Ur Microscopic Review Not Reportable Urine Culture Comments Culture not ind Vancomycin Trough 7.6 08/26/18 08/26/18 08/26/18 04:34 05:14 12:12 WBC 12.4 H RBC 3.73 L Hgb 10.0 L Hct 30.0 L MCV 80.3 MCH 26.9 L MCHC 33.5 RDW 16.2 Plt Count 289 MPV 6.9 L Neut % (Auto) 79.0 H Lymph % (Auto) 10.1 [place] % (Auto) 6.5 Eos % (Auto) 4.1 H Baso % (Auto) 0.3 Neut # (Auto) 9.8 H Lymph # (Auto) 1.2 [place] # (Auto) 0.8 Eos # (Auto) 0.5 H Baso # (Auto) 0.0 WBC Differential . Differential Comment Auto diff final Sodium Potassium Chloride Carbon Dioxide Anion Gap BUN Creatinine Estimated GFR POC Glucose 127 H 141 H Random Glucose Calcium Total Bilirubin Direct Bilirubin Indirect Bilirubin AST ALT Alkaline Phosphatase Total Protein Albumin Urine Color Urine Clarity Urine pH Ur Specific [place] Urine Protein Urine Glucose (UA) Urine Ketones Urine Occult Blood Urine Nitrate Urine Bilirubin Urine Urobilinogen Ur Leukocyte Esterase Micro UA Comment Ur Microscopic Review Urine Culture Comments Vancomycin Trough Microbiology 08/25/18 16:35 Blood - Peripheral Aerobic Blood Culture - Preliminary No growth in 1 day 11/30/18 16:35 Blood - Peripheral Anaerobic Blood Culture - Preliminary No growth in 1 day 08/25/18 16:30 Blood - Peripheral Aerobic Blood Culture - Preliminary No growth in 1 day 08/25/18 16:30 Blood - Peripheral Anaerobic Blood Culture - Preliminary No growth in 1 day - Imaging Impressions Abdomen X-Ray 08/26/18 00:00 CONCLUSION: 1. No evidence of bowel obstruction or ileus. 2. Degenerative changes and scoliosis of the thoracolumbar spine. 3. Degenerative changes involving the left hip joint. - Procedures MRCP 08/20/18 Abdomen/Pelvis CT 08/19/18 13:11 CONCLUSION: 1. Expected postoperative features of cholecystectomy with surgical drain in the cholecystectomy bed. No focal drainable fluid collections or significant free fluid. 2. Diffusely decreased hepatic attenuation consistent with hepatic steatosis versus medical liver disease. 3. Nondistended fluid-filled loops of proximal small bowel which may reflect developing mild adynamic ileus. Cholangiopancreatography MRI 08/20/18 00:00 CONCLUSION: 1. Expected postoperative features of cholecystectomy with ill-defined trace fluid in the surgical bed but no focal drainable fluid collection. Patient was noted to have a small bile leak on HIDA scan. 2. Mildly prominent common bile duct measuring up to 8 mm without intrahepatic ductal dilatation. No focal CBD defect. GI Procedure 08/22/18 00:00 CONCLUSION: ERCP as above. Chest X-Ray 08/22/18 17:46 CONCLUSION: Mild basilar atelectasis right greater than left. No evidence of pneumothorax or rib fracture Assessment and Plan - Assessment (1) Sepsis Code(s): A41.9 - Sepsis, unspecified organism Status: Acute Plan: Patient states he needs the Dilaudid [id number]. I have expressed significant concern for him becoming narcotic dependent. I have asked for him to try to cut back on this and to try to utilize the oral pain medicine so that he can be discharged when he improves. Still has a low-grade temperature last night. Will need to be discharged on oral antibiotics. If he has a fever again , would consider CT scan to be repeated with oral contrast only. We will continue to follow with you. - Plan Discussed Condition With: Patient - Attending Attestation I attest that I had a [id number] encounter with the patient on the same day, and personally performed and documented my assessment and findings in the medical record. The following services were provided during this hospital visit: Chart data review, vital sign assessments/reviewing monitor data Review of consultation notes if present Medication orders/review and/or management Ordering and/or reviewing lab tests Ordering and/or interpreting/reviewing x-rays and/or diagnostic studies Care of the patient and discussion of the patient with the care team Documentation time To help prompt me to consider important information that might be impacting today's encounter and assessment, Information from prior notes written by myself or my colleagues may have been "brought forward/copy and pasted" into today's note. (1) Sepsis Qualifiers: Sepsis type: sepsis due to unspecified organism Qualified Code(s): A41.9 - Sepsis, unspecified organism
[2018-08-27] MEDS: Sod Chloride 0.9% Inj 1,000 ML IV.CONT SCH ×4 (00:38→23:45)
[2018-08-27] MEDS: oxyCODONE/Acetaminophen 10/325 Tablet PO PRN ×6 (00:39→23:44)
[2018-08-27] MEDS: HYDROmorphone PF Inj 1 MG/ML Ampul IV.PUSH PRN ×4 (03:31→21:45)
[2018-08-27] MEDS: Sodium Chloride 0.9% 2 ML Flush PRN IV.FLUSH (03:32)
[2018-08-27] MEDS: Piperacil/Tazo 3.375 GM Premix 50 ML IV.SIG SCH ×3 (04:59→20:24)
[2018-08-27] MEDS: Lisinopril 20 MG Tablet PO SCH (09:22)
[2018-08-27] MEDS: lamoTRIgine 100 MG Tablet PO SCH (09:22)
[2018-08-27] MEDS: Senna/Docusate Sodium 8.6/50 MG Tablet PO SCH ×2 (09:22→20:28)
[2018-08-27] MEDS: Sodium Chloride 0.9% 2 ML Flush BID IV.FLUSH SCH ×2 (09:22→20:25)
[2018-08-27 10:23] LABS: Baso # (Auto) 0.1 th/mm3 (0.0-0.2); Baso % (Auto) 0.7 % (0.0-2.0); Eos # (Auto) 0.5 th/mm3 (0.0-0.4); Eos % (Auto) 4.6 % (0.0-4.0); Hematocrit 30.2 % (39.0-51.0); Hemoglobin 9.5 gm/dL (13.0-17.0); Lymph # (Auto) 1.4 th/mm3 (1.0-4.8); Lymph % (Auto) 14.4 % (9.0-44.0); Mean Corpuscular HGB Conc 31.6 % (32.0-36.0); Mean Corpuscular Volume 82.2 fL (80.0-100.0); Mean Platelet Volume 7.2 fL (7.0-11.0); Mono # (Auto) 0.7 th/mm3 (0.0-0.9); Mono % (Auto) 7.4 % (0.0-8.0); Neut # (Auto) 7.3 th/mm3 (1.8-7.7); Neut % (Auto) 72.9 % (16.0-70.0); Platelet Count 319 th/mm3 (150-450); Red Blood Count 3.68 mil/mm3 (4.50-5.90); Red Cell Distribution Width 15.9 % (11.6-17.2)
--- NOTE | 2018-08-27 11:14 | P.PNGS ---
Subjective Patient reports: still having pain, bowel movement Physical Exam Vital signs: Vital Signs 08/26/18 12:00 08/26/18 20:00 08/27/18 00:00 Temperature 100.2 F H 98.2 F 98.9 F Pulse Rate 84 87 92 H Respiratory Rate 18 20 20 Blood Pressure 108/54 L 148/85 H 148/81 H Pulse Oximetry 95 93 L 95 08/27/18 04:00 08/27/18 08:00 Temperature 99.1 F 99.1 F Pulse Rate 85 80 Respiratory Rate 18 18 Blood Pressure 144/78 H 145/79 H Pulse Oximetry 94 L 95 Intake & Output 08/26/18 08/27/18 08/27/18 18:59 06:59 18:59 Intake Total 1927.5 / 1927.5 2337.5 / 2337.5 Output Total 900 / 900 Balance 1027.5 / 1027.5 2337.5 / 2337.5 Weight 149 kg 150 kg Intake: IV 1567.5 / 1567.5 1617.5 / 1617.5 NS Inj 1,000 ML @ 100 mls/hr IV 1000 / 1000 1000 / 1000 .CONT .Q10H ENOC Rx#:[id number] Zosyn 3.375 GM Premix 50 ML @ 50 / 50 100 / 100 100 mls/hr IV.SIG Q8H ENOC Rx#: [id number] Vancomycin Inj 1,750 MG In NS 517.5 / 517.5 517.5 / 517.5 Inj 500 ML @ 258.75 mls/hr IV. SIG Q12H ENOC Rx#:[id number] Oral 360 / 360 720 / 720 Output: Urine 900 / 900 Other: # Voids 3 Date of Last Bowel Movement 08/26/18 08/26/18 08/26/18 # Bowel Movements 1 # Incontinent Bowel Movements 0 - Routine Abdominal Exam Present: soft (right sided ttp) Results - Labs 08/27/18 09:00 08/27/18 09:00 Laboratory Results - last 24 hr 08/26/18 08/26/18 08/26/18 12:12 17:31 23:11 WBC RBC Hgb Hct MCV MCH MCHC RDW Plt Count MPV Neut % (Auto) Lymph % (Auto) [place] % (Auto) Eos % (Auto) Baso % (Auto) Neut # (Auto) Lymph # (Auto) [place] # (Auto) Eos # (Auto) Baso # (Auto) WBC Differential Differential Comment Creatinine Estimated GFR POC Glucose 141 H 105 137 H 08/27/18 08/27/18 08/27/18 05:36 09:00 09:00 WBC 10.0 RBC 3.68 L Hgb 9.5 L Hct 30.2 L MCV 82.2 MCH 26.0 L MCHC 31.6 L RDW 15.9 Plt Count 319 MPV 7.2 Neut % (Auto) 72.9 H Lymph % (Auto) 14.4 [place] % (Auto) 7.4 Eos % (Auto) 4.6 H Baso % (Auto) 0.7 Neut # (Auto) 7.3 Lymph # (Auto) 1.4 [place] # (Auto) 0.7 Eos # (Auto) 0.5 H Baso # (Auto) 0.1 WBC Differential . Differential Comment Auto diff final Creatinine 0.95 Estimated GFR 81 L POC Glucose 175 H - Imaging Imaging: ITS Impressions Abdomen/Pelvis CT 08/19/18 13:11 CONCLUSION: 1. Expected postoperative features of cholecystectomy with surgical drain in the cholecystectomy bed. No focal drainable fluid collections or significant free fluid. 2. Diffusely decreased hepatic attenuation consistent with hepatic steatosis versus medical liver disease. 3. Nondistended fluid-filled loops of proximal small bowel which may reflect developing mild adynamic ileus. Cholangiopancreatography MRI 08/20/18 00:00 CONCLUSION: 1. Expected postoperative features of cholecystectomy with ill-defined trace fluid in the surgical bed but no focal drainable fluid collection. Patient was noted to have a small bile leak on HIDA scan. 2. Mildly prominent common bile duct measuring up to 8 mm without intrahepatic ductal dilatation. No focal CBD defect. GI Procedure 08/22/18 00:00 CONCLUSION: ERCP as above. Chest X-Ray 08/25/18 00:00 CONCLUSION: Little change from prior exam Abdomen X-Ray 08/26/18 00:00 CONCLUSION: 1. No evidence of bowel obstruction or ileus. 2. Degenerative changes and scoliosis of the thoracolumbar spine. 3. Degenerative changes involving the left hip joint. Assessment and Plan - Assessment (1) Sepsis Code(s): A41.9 - Sepsis, unspecified organism Status: Acute Plan: 57 year old male s/p lap ender several week ago; fevers -S/p ERCP---stent PLAN Advance to fulls pain control encourage po oob dvt ppx will follow (1) Sepsis Qualifiers: Sepsis type: sepsis due to unspecified organism Qualified Code(s): A41.9 - Sepsis, unspecified organism
[2018-08-27] MEDS ORDERED: Pharmacy Ordered Lab Info OTHER ONE (11:45)
[2018-08-27] MEDS: Vancomycin Inj 1,750 MG in Sodium Chlor 0.9% Inj 500 ML IV.SIG SCH ×2 (12:01→23:43)
--- NOTE | 2018-08-27 14:01 | P.PNIM ---
Subjective Interval history: Follow-up for acute abdominal pain and sepsis status post cholecystectomy. Patient seen and examined laying in bed, still complaining of abdominal pain worse with movement. Patient stated the medications were giving her is like a trickle and not helping his pain, just a little bit. Physical Exam Vital signs: Vital Signs 08/26/18 20:00 08/27/18 00:00 08/27/18 04:00 Temperature 98.2 F 98.9 F 99.1 F Pulse Rate 87 92 H 85 Respiratory Rate 20 20 18 Blood Pressure 148/85 H 148/81 H 144/78 H Pulse Oximetry 93 L 95 94 L 08/27/18 08:00 08/27/18 12:00 Temperature 99.1 F 99.1 F Pulse Rate 80 81 Respiratory Rate 18 18 Blood Pressure 145/79 H 162/70 H Pulse Oximetry 95 92 L Intake & Output 08/26/18 08/27/18 08/27/18 18:59 06:59 18:59 Intake Total 1927.5 / 1927.5 2337.5 / 2337.5 1000 / 1000 Output Total 900 / 900 Balance 1027.5 / 1027.5 2337.5 / 2337.5 1000 / 1000 Weight 149 kg 150 kg Intake: IV 1567.5 / 1567.5 1617.5 / 1617.5 1000 / 1000 NS Inj 1,000 ML @ 100 mls/hr IV 1000 / 1000 1000 / 1000 1000 / 1000 .CONT .Q10H ENOC Rx#:[id number] Zosyn 3.375 GM Premix 50 ML @ 50 / 50 100 / 100 100 mls/hr IV.SIG Q8H ENOC Rx#: [id number] Vancomycin Inj 1,750 MG In NS 517.5 / 517.5 517.5 / 517.5 Inj 500 ML @ 258.75 mls/hr IV. SIG Q12H ENOC Rx#:[id number] Oral 360 / 360 720 / 720 Output: Urine 900 / 900 Other: # Voids 3 Date of Last Bowel Movement 08/26/18 08/26/18 08/26/18 # Bowel Movements 1 # Incontinent Bowel Movements 0 Narrative: GENERAL: Well-developed, well-nourished, obese male, in no apparent distress SKIN: Warm and dry. HEAD: Atraumatic. Normocephalic. EYES: Pupils equal and round. No scleral icterus. No injection or drainage. ENT: No nasal bleeding or discharge. Mucous membranes pink and moist. NECK: Trachea midline. No JVD. CARDIOVASCULAR: Regular rate and rhythm. RESPIRATORY: No accessory muscle use. Clear to auscultation. Breath sounds equal bilaterally. GASTROINTESTINAL: Abdomen obese, slight abdominal distention, with abdominal tenderness. Multiple abdominal incisions healing well, right upper, right lower and mid lower MUSCULOSKELETAL: Extremities without clubbing, cyanosis, or edema. No obvious deformities. NEUROLOGICAL: Awake and alert. No obvious cranial nerve deficits. Motor grossly within normal limits. Five out of 5 muscle strength in the arms and legs. Normal speech. PSYCHIATRIC: Appropriate mood and affect; insight and judgment normal. Results - Labs CBC & Chem 7: 08/27/18 09:00 08/27/18 09:00 Laboratory Results - last 24 hr 08/26/18 08/26/18 08/27/18 17:31 23:11 05:36 WBC RBC Hgb Hct MCV MCH MCHC RDW Plt Count MPV Neut % (Auto) Lymph % (Auto) [place] % (Auto) Eos % (Auto) Baso % (Auto) Neut # (Auto) Lymph # (Auto) [place] # (Auto) Eos # (Auto) Baso # (Auto) WBC Differential Differential Comment Creatinine Estimated GFR POC Glucose 105 137 H 175 H Vancomycin Trough 08/27/18 08/27/18 08/27/18 09:00 09:00 12:00 WBC 10.0 RBC 3.68 L Hgb 9.5 L Hct 30.2 L MCV 82.2 MCH 26.0 L MCHC 31.6 L RDW 15.9 Plt Count 319 MPV 7.2 Neut % (Auto) 72.9 H Lymph % (Auto) 14.4 [place] % (Auto) 7.4 Eos % (Auto) 4.6 H Baso % (Auto) 0.7 Neut # (Auto) 7.3 Lymph # (Auto) 1.4 [place] # (Auto) 0.7 Eos # (Auto) 0.5 H Baso # (Auto) 0.1 WBC Differential . Differential Comment Auto diff final Creatinine 0.95 Estimated GFR 81 L POC Glucose Vancomycin Trough 13.7 H 08/27/18 12:19 WBC RBC Hgb Hct MCV MCH MCHC RDW Plt Count MPV Neut % (Auto) Lymph % (Auto) [place] % (Auto) Eos % (Auto) Baso % (Auto) Neut # (Auto) Lymph # (Auto) [place] # (Auto) Eos # (Auto) Baso # (Auto) WBC Differential Differential Comment Creatinine Estimated GFR POC Glucose 157 H Vancomycin Trough Microbiology 08/25/18 16:35 Blood - Peripheral Aerobic Blood Culture - Preliminary No growth in 2 days 08/25/18 16:35 Blood - Peripheral Anaerobic Blood Culture - Preliminary No growth in 2 days 08/25/18 16:30 Blood - Peripheral Aerobic Blood Culture - Preliminary No growth in 2 days 08/25/18 16:30 Blood - Peripheral Anaerobic Blood Culture - Preliminary No growth in 2 days - Imaging Impressions Abdomen X-Ray 08/26/18 00:00 CONCLUSION: 1. No evidence of bowel obstruction or ileus. 2. Degenerative changes and scoliosis of the thoracolumbar spine. 3. Degenerative changes involving the left hip joint. - Procedures MRCP 08/20/18 Abdomen/Pelvis CT 08/19/18 13:11 CONCLUSION: 1. Expected postoperative features of cholecystectomy with surgical drain in the cholecystectomy bed. No focal drainable fluid collections or significant free fluid. 2. Diffusely decreased hepatic attenuation consistent with hepatic steatosis versus medical liver disease. 3. Nondistended fluid-filled loops of proximal small bowel which may reflect developing mild adynamic ileus. Cholangiopancreatography MRI 08/20/18 00:00 CONCLUSION: 1. Expected postoperative features of cholecystectomy with ill-defined trace fluid in the surgical bed but no focal drainable fluid collection. Patient was noted to have a small bile leak on HIDA scan. 2. Mildly prominent common bile duct measuring up to 8 mm without intrahepatic ductal dilatation. No focal CBD defect. GI Procedure 08/22/18 00:00 CONCLUSION: ERCP as above. Chest X-Ray 08/22/18 17:46 CONCLUSION: Mild basilar atelectasis right greater than left. No evidence of pneumothorax or rib fracture Assessment and Plan - Assessment (1) Acute cholecystitis Code(s): K81.0 - Acute cholecystitis Status: Acute (2) Hypertension Code(s): I10 - Essential (primary) hypertension Status: Acute (3) Anxiety Code(s): F41.9 - Anxiety disorder, unspecified Status: Acute (4) Acute gangrenous cholecystitis Code(s): K81.0 - Acute cholecystitis Status: Acute (5) Sepsis Code(s): A41.9 - Sepsis, unspecified organism Status: Acute - Plan 57-year-old male admitted secondary to acute abdominal pain and sepsis status post cholecystectomy. Status post cholecystectomy Biliary drain obstruction Abdomen infection Sepsis Continue Vancomycin, Zosyn and Probiotics. -Status post MRCP found small bile leak on HIDA scan, Mildly prominent common bile duct measuring up to 8 mm without intrahepatic ductal dilatation. No focal CBD defect, recommended by GI specialist for ERCP, to continue antibiotics, due to Sepsis, suspected biliary infection post Op Cholecystectomy. -s/p ERCP with stent placement 08/22. -Status post LAURI drain removal 08/25/2018 -Follow up with GI and surgery. -Abdominal distention and tenderness, repeat KUB today Fever With leukocytosis, likely related to abdominal infection/suspected biliary infection status post cholecystectomy -Elevated temp of 102.7 on 08/25. -harper-culture. -continue IV antibiotics vancomycin and Zosyn -consult ID if persists -Blood culture :no growth in 2 days Acute pancreatitis Likely s/t ERCP. Lipase over 4000, now normal. LFTs unremarkable. -continue IVFs. -pain control and antiemetics as needed. -clear liquid diet. -Cleared with GI to follow up as an outpatient for stent removal in 8 weeks Hypertension likely Exacerbated by pain. -pain control. -Continue increased dose of lisinopril. -Continue clonidine prn. -Blood pressure improving, monitor blood pressure, adjust medication as necessary Tobacco dependence -Counseled patient on smoking cessation Constipation -Increase bowel regimen. Lactulose, senna/docusate -Give milk of magnesia today -KUB to rule out ileus Anemia Hemoglobin stable at this time. -follow CBC. DVT prophylaxis: SCDs Code Status: full code Discussed Condition With: patient and nurse (5) Sepsis Qualifiers: Sepsis type: sepsis due to unspecified organism Qualified Code(s): A41.9 - Sepsis, unspecified organism
[2018-08-28] MEDS: HYDROmorphone PF Inj 1 MG/ML Ampul IV.PUSH PRN ×5 (02:41→21:19)
[2018-08-28] MEDS: Sodium Chloride 0.9% 2 ML Flush PRN IV.FLUSH (02:42)
[2018-08-28] MEDS: Piperacil/Tazo 3.375 GM Premix 50 ML IV.SIG SCH ×3 (05:23→21:29)
[2018-08-28] MEDS: oxyCODONE/Acetaminophen 10/325 Tablet PO PRN ×5 (05:23→23:15)
[2018-08-28] MEDS: Sod Chloride 0.9% Inj 1,000 ML IV.CONT SCH ×4 (06:35→23:14)
[2018-08-28] MEDS: Lisinopril 20 MG Tablet PO SCH (08:03)
[2018-08-28] MEDS: lamoTRIgine 100 MG Tablet PO SCH (08:04)
[2018-08-28] MEDS: Senna/Docusate Sodium 8.6/50 MG Tablet PO SCH ×2 (08:04→21:27)
--- NOTE | 2018-08-28 09:53 | P.PNIM ---
Physical Exam Vital signs: Vital Signs 08/27/18 12:00 08/27/18 16:00 08/27/18 19:30 Temperature 99.1 F 97.7 F Pulse Rate 79 86 Respiratory Rate 18 18 18 Blood Pressure 162/70 H 177/93 H Pulse Oximetry 92 L 92 L 08/27/18 19:55 08/27/18 20:00 08/27/18 23:48 Temperature 98.7 F 99.5 F Pulse Rate 86 88 86 Respiratory Rate 18 18 Blood Pressure 155/86 H 151/74 H Pulse Oximetry 93 L 97 08/27/18 23:54 08/28/18 04:00 08/28/18 04:02 Temperature 97.9 F Pulse Rate 84 79 82 Respiratory Rate 18 Blood Pressure 143/73 H Pulse Oximetry 95 08/28/18 08:00 Temperature 97.9 F Pulse Rate 71 Respiratory Rate 18 Blood Pressure 138/82 Pulse Oximetry 95 Intake & Output 08/27/18 08/28/18 08/28/18 18:59 06:59 18:59 Intake Total 2927.5 / 2927.5 1617.5 / 1617.5 720 / 720 Output Total 700 / 700 Balance 2227.5 / 2227.5 1617.5 / 1617.5 720 / 720 Weight 149.5 kg Intake: IV 2567.5 / 2567.5 1617.5 / 1617.5 NS Inj 1,000 ML @ 100 mls/hr IV 2000 / 2000 1000 / 1000 .CONT .Q10H ENOC Rx#:[id number] Zosyn 3.375 GM Premix 50 ML @ 50 / 50 100 / 100 100 mls/hr IV.SIG Q8H ENOC Rx#: [id number] Vancomycin Inj 1,750 MG In NS 517.5 / 517.5 517.5 / 517.5 Inj 500 ML @ 258.75 mls/hr IV. SIG Q12H ENOC Rx#:[id number] Oral 360 / 360 720 / 720 Output: Urine 700 / 700 Other: # Voids 3 2 Date of Last Bowel Movement 08/26/18 08/27/18 # Bowel Movements 2 Narrative: GENERAL: Well-developed, well-nourished, Obese obese male, in no apparent distress SKIN: Warm and dry. HEAD: Atraumatic. Normocephalic. EYES: Pupils equal and round. No scleral icterus. No injection or drainage. ENT: No nasal bleeding or discharge. Mucous membranes pink and moist. NECK: Trachea midline. No JVD. CARDIOVASCULAR: Regular rate and rhythm. RESPIRATORY: No accessory muscle use. Clear to auscultation. Breath sounds equal bilaterally. GASTROINTESTINAL: Abdomen obese, slight abdominal distention, with abdominal tenderness. Multiple abdominal incisions healing well, right upper, right lower and mid lower MUSCULOSKELETAL: Extremities without clubbing, cyanosis, or edema. No obvious deformities. NEUROLOGICAL: Awake and alert. No obvious cranial nerve deficits. Motor grossly within normal limits. Five out of 5 muscle strength in the arms and legs. Normal speech. PSYCHIATRIC: Appropriate mood and affect; insight and judgment normal. Results - Labs CBC & Chem 7: 08/27/18 09:00 08/27/18 09:00 Laboratory Results - last 24 hr 08/27/18 08/27/18 08/27/18 09:00 09:00 12:00 WBC 10.0 RBC 3.68 L Hgb 9.5 L Hct 30.2 L MCV 82.2 MCH 26.0 L MCHC 31.6 L RDW 15.9 Plt Count 319 MPV 7.2 Neut % (Auto) 72.9 H Lymph % (Auto) 14.4 [place] % (Auto) 7.4 Eos % (Auto) 4.6 H Baso % (Auto) 0.7 Neut # (Auto) 7.3 Lymph # (Auto) 1.4 [place] # (Auto) 0.7 Eos # (Auto) 0.5 H Baso # (Auto) 0.1 WBC Differential . Differential Comment Auto diff final Creatinine 0.95 Estimated GFR 81 L POC Glucose Vancomycin Trough 13.7 H 08/27/18 08/27/18 08/27/18 12:19 18:26 23:55 WBC RBC Hgb Hct MCV MCH MCHC RDW Plt Count MPV Neut % (Auto) Lymph % (Auto) [place] % (Auto) Eos % (Auto) Baso % (Auto) Neut # (Auto) Lymph # (Auto) [place] # (Auto) Eos # (Auto) Baso # (Auto) WBC Differential Differential Comment Creatinine Estimated GFR POC Glucose 157 H 158 H 224 H Vancomycin Trough 08/28/18 05:33 WBC RBC Hgb Hct MCV MCH MCHC RDW Plt Count MPV Neut % (Auto) Lymph % (Auto) [place] % (Auto) Eos % (Auto) Baso % (Auto) Neut # (Auto) Lymph # (Auto) [place] # (Auto) Eos # (Auto) Baso # (Auto) WBC Differential Differential Comment Creatinine Estimated GFR POC Glucose 170 H Vancomycin Trough Microbiology 08/25/18 16:35 Blood - Peripheral Aerobic Blood Culture - Preliminary No growth in 2 days 08/25/18 16:35 Blood - Peripheral Anaerobic Blood Culture - Preliminary No growth in 2 days 08/25/18 16:30 Blood - Peripheral Aerobic Blood Culture - Preliminary No growth in 2 days 08/25/18 16:30 Blood - Peripheral Anaerobic Blood Culture - Preliminary No growth in 2 days - Procedures MRCP 08/20/18 Abdomen/Pelvis CT 08/19/18 13:11 CONCLUSION: 1. Expected postoperative features of cholecystectomy with surgical drain in the cholecystectomy bed. No focal drainable fluid collections or significant free fluid. 2. Diffusely decreased hepatic attenuation consistent with hepatic steatosis versus medical liver disease. 3. Nondistended fluid-filled loops of proximal small bowel which may reflect developing mild adynamic ileus. Cholangiopancreatography MRI 08/20/18 00:00 CONCLUSION: 1. Expected postoperative features of cholecystectomy with ill-defined trace fluid in the surgical bed but no focal drainable fluid collection. Patient was noted to have a small bile leak on HIDA scan. 2. Mildly prominent common bile duct measuring up to 8 mm without intrahepatic ductal dilatation. No focal CBD defect. GI Procedure 08/22/18 00:00 CONCLUSION: ERCP as above. Chest X-Ray 08/22/18 17:46 CONCLUSION: Mild basilar atelectasis right greater than left. No evidence of pneumothorax or rib fracture Assessment and Plan - Assessment (1) Acute cholecystitis Code(s): K81.0 - Acute cholecystitis Status: Acute (2) Hypertension Code(s): I10 - Essential (primary) hypertension Status: Acute (3) Anxiety Code(s): F41.9 - Anxiety disorder, unspecified Status: Acute (4) Acute gangrenous cholecystitis Code(s): K81.0 - Acute cholecystitis Status: Acute (5) Sepsis Code(s): A41.9 - Sepsis, unspecified organism Status: Acute - Plan This is a 57-year-old male admitted secondary to acute abdominal pain and sepsis status post cholecystectomy. Status post cholecystectomy Biliary drain obstruction Abdomen infection Sepsis Continue Vancomycin, Zosyn and Probiotics. -Status post MRCP found small bile leak on HIDA scan, Mildly prominent common bile duct measuring up to 8 mm without intrahepatic ductal dilatation. No focal CBD defect, recommended by GI specialist for ERCP, to continue antibiotics, due to Sepsis, suspected biliary infection post Op Cholecystectomy. -s/p ERCP with stent placement 08/22. -Status post LAURI drain removal 08/25/2018 -Continue IV antibiotic, vancomycin and Zosyn -General surgery following -Follow up with GI in 8 weeks for stent removal . -pain management with bowel regimen -Abdominal distention and tenderness, repeat KUB no evidence of Ileus -patient tolerating full liquid diet, advance diet as tolerated Fever With leukocytosis, likely related to abdominal infection/suspected biliary infection status post cholecystectomy -Elevated temp of 102.7 on 08/25. -harper-culture. -continue IV antibiotics vancomycin and Zosyn -consult ID if persists -Blood culture :no growth in 2 days Acute pancreatitis Likely s/t ERCP. Lipase over 4000, now normal. LFTs unremarkable. -continue IVFs. -pain control and antiemetics as needed. -clear liquid diet. -Cleared with GI to follow up as an outpatient for stent removal in 8 weeks Hypertension likely Exacerbated by pain. -pain control. -Continue increased dose of lisinopril. -Continue clonidine prn. -Blood pressure improving, monitor blood pressure, adjust medication as necessary Tobacco dependence -Counseled patient on smoking cessation Constipation -Increase bowel regimen. Lactulose, senna/docusate -Give milk of magnesia prn -KUB negative ileus -improving Anxiety/Depression -acute on chronic -continue seroquel and xanax prn -monitor mental status Anemia Hemoglobin stable at this time. -follow CBC DVT prophylaxis: SCDs Code Status: full code Discussed Condition With: patient and nurse Discharge Planning: discharge when cleared with GI and General surgery (5) Sepsis Qualifiers: Sepsis type: sepsis due to unspecified organism Qualified Code(s): A41.9 - Sepsis, unspecified organism
[2018-08-28] MEDS: Sodium Chloride 0.9% 2 ML Flush BID IV.FLUSH SCH ×2 (10:33→21:20)
[2018-08-28] MEDS: Vancomycin Inj 1,750 MG in Sodium Chlor 0.9% Inj 500 ML IV.SIG SCH ×2 (12:54→23:16)
[2018-08-29] MEDS: HYDROmorphone PF Inj 1 MG/ML Ampul IV.PUSH PRN ×5 (01:15→16:24)
[2018-08-29] MEDS: oxyCODONE/Acetaminophen 10/325 Tablet PO PRN ×4 (03:18→16:30)
[2018-08-29] MEDS: Sod Chloride 0.9% Inj 1,000 ML IV.CONT SCH ×2 (03:22→16:28)
[2018-08-29] MEDS: Piperacil/Tazo 3.375 GM Premix 50 ML IV.SIG SCH ×3 (06:01→20:40)
[2018-08-29 06:34] LABS: Glomerular Filtration Rate Greater Than 89 mL/min (>89)
[2018-08-29] MEDS: Lisinopril 20 MG Tablet PO SCH (08:46)
[2018-08-29] MEDS: lamoTRIgine 100 MG Tablet PO SCH (08:46)
[2018-08-29] MEDS: Senna/Docusate Sodium 8.6/50 MG Tablet PO SCH ×2 (10:29→20:41)
[2018-08-29] MEDS: Sodium Chloride 0.9% 2 ML Flush BID IV.FLUSH SCH ×2 (10:29→20:41)
[2018-08-29] MEDS: Vancomycin Inj 1,750 MG in Sodium Chlor 0.9% Inj 500 ML IV.SIG SCH (12:35)
--- NOTE | 2018-08-29 13:00 | P.PNGS ---
Subjective Interval history: Does report pain is better today Ate too much yesterday Physical Exam Vital signs: Vital Signs 08/28/18 16:00 08/28/18 20:00 08/28/18 20:35 Temperature 98.5 F 98 F Pulse Rate 82 85 87 Respiratory Rate 18 18 Blood Pressure 154/96 H 185/99 H Pulse Oximetry 95 93 L 08/29/18 00:00 08/29/18 03:50 08/29/18 04:00 Temperature 98.6 F 97.5 F L Pulse Rate 80 74 75 Respiratory Rate 19 18 Blood Pressure 175/92 H 153/79 H Pulse Oximetry 94 L 93 L 08/29/18 08:00 Temperature 97.7 F Pulse Rate 75 Respiratory Rate 17 Blood Pressure 201/109 H Pulse Oximetry 93 L Intake & Output 08/28/18 08/29/18 08/29/18 18:59 06:59 18:59 Intake Total 3007.5 / 3007.5 2510 / 2510 50 / 50 Balance 3007.5 / 3007.5 2510 / 2510 50 / 50 Weight 149.5 kg 148.5 kg Intake: IV 1567.5 / 1567.5 1710 / 1710 50 / 50 NS Inj 1,000 ML @ 100 mls/hr IV 1000 / 1000 1000 / 1000 .CONT .Q10H ENOC Rx#:[id number] Zosyn 3.375 GM Premix 50 ML @ 50 / 50 110 / 110 50 / 50 100 mls/hr IV.SIG Q8H ENOC Rx#: [id number] Vancomycin Inj 1,750 MG In NS 517.5 / 517.5 600 / 600 Inj 500 ML @ 258.75 mls/hr IV. SIG Q12H ENOC Rx#:[id number] Oral 1440 / 1440 800 / 800 Other: # Voids 4 2 # Bowel Movements 0 Narrative: Alert and awake Abd: prior lap sites and LAURI sites healing; soft Results - Labs 08/27/18 09:00 08/29/18 05:20 Laboratory Results - last 24 hr 08/28/18 08/29/18 08/29/18 17:49 05:20 06:09 Creatinine 0.73 Estimated GFR Greater than 89 POC Glucose 142 H 117 H 08/29/18 12:39 Creatinine Estimated GFR POC Glucose 161 H - Imaging Imaging: ITS Impressions Abdomen/Pelvis CT 08/19/18 13:11 CONCLUSION: 1. Expected postoperative features of cholecystectomy with surgical drain in the cholecystectomy bed. No focal drainable fluid collections or significant free fluid. 2. Diffusely decreased hepatic attenuation consistent with hepatic steatosis versus medical liver disease. 3. Nondistended fluid-filled loops of proximal small bowel which may reflect developing mild adynamic ileus. Cholangiopancreatography MRI 08/20/18 00:00 CONCLUSION: 1. Expected postoperative features of cholecystectomy with ill-defined trace fluid in the surgical bed but no focal drainable fluid collection. Patient was noted to have a small bile leak on HIDA scan. 2. Mildly prominent common bile duct measuring up to 8 mm without intrahepatic ductal dilatation. No focal CBD defect. GI Procedure 08/22/18 00:00 CONCLUSION: ERCP as above. Chest X-Ray 08/25/18 00:00 CONCLUSION: Little change from prior exam Abdomen X-Ray 08/26/18 00:00 CONCLUSION: 1. No evidence of bowel obstruction or ileus. 2. Degenerative changes and scoliosis of the thoracolumbar spine. 3. Degenerative changes involving the left hip joint. Assessment and Plan - Assessment (1) Sepsis Code(s): A41.9 - Sepsis, unspecified organism Status: Acute Plan: 57 year old male s/p lap ender several week ago; fevers -S/p ERCP---stent placed -Lipase now normal -Diet as tolerated -OOB -GS will sign off; No follow up in the office needed Much improved compared to last week; post procedure pancreatitis resolved. OK for discharge when ok with med team. No need for follow up with me. The exam, history, and the medical decision-making described in the above note were completed with the assistance of the mid-level provider. I reviewed and agree with the findings presented. I attest that I had a [id number] encounter with the patient on the same day, and personally performed and documented my assessment and findings in the medical record. (1) Sepsis Qualifiers: Sepsis type: sepsis due to unspecified organism Qualified Code(s): A41.9 - Sepsis, unspecified organism
--- NOTE | 2018-08-29 17:00 | P.PNIM ---
Subjective Interval history: still having abdominal pain intermittently. he has been receiving IV Dilaudid every 3 hours. Also on Xanax, daughter and patient says he takes 2mg twice a day. Physical Exam Vital signs: Last Vital Signs Temp 98.8 F 08/29/18 16:00 Pulse 86 08/29/18 16:00 Resp 17 08/29/18 16:00 BP 149/91 H 08/29/18 16:00 Pulse Ox 93 L 08/29/18 16:00 Intake & Output 08/27/18 08/28/18 08/29/18 08/30/18 06:59 06:59 06:59 06:59 Intake Total 4265.0 / 4265.0 4545.0 / 4545.0 5517.5 / 5517.5 567.5 / 567.5 Output Total 900 / 900 700 / 700 Balance 3365.0 / 3365.0 3845.0 / 3845.0 5517.5 / 5517.5 567.5 / 567.5 Weight 150 kg 148.5 kg Narrative: GENERAL: obese middle aged man, in no apparent distress. HEENT:not pale,anicteric CARDIOVASCULAR: Regular rate and rhythm without murmurs, gallops, or rubs. RESPIRATORY: Clear to auscultation. Breath sounds equal bilaterally. No wheezes , rales, or rhonchi. GASTROINTESTINAL: Obese, healing scar on RUQ(previous cholecystostomy tube site) ,abdomen soft,mild generalized tenderness, Normal active bowel sounds. MUSCULOSKELETAL: Extremities without clubbing, cyanosis, or edema. NEURO: Alert & Oriented x4 to person, place, time, situation. Moves all ext x4 Results Labs CBC & Chem 7: 08/27/18 09:00 08/29/18 05:20 Labs: Microbiology 08/25/18 16:35 Blood - Peripheral Aerobic Blood Culture - Preliminary No growth in 4 days 08/25/18 16:35 Blood - Peripheral Anaerobic Blood Culture - Preliminary No growth in 4 days 08/25/18 16:30 Blood - Peripheral Aerobic Blood Culture - Preliminary No growth in 4 days 08/25/18 16:30 Blood - Peripheral Anaerobic Blood Culture - Preliminary No growth in 4 days Procedures Procedures: MRCP 08/20/18 Abdomen/Pelvis CT 08/19/18 13:11 CONCLUSION: 1. Expected postoperative features of cholecystectomy with surgical drain in the cholecystectomy bed. No focal drainable fluid collections or significant free fluid. 2. Diffusely decreased hepatic attenuation consistent with hepatic steatosis versus medical liver disease. 3. Nondistended fluid-filled loops of proximal small bowel which may reflect developing mild adynamic ileus. Cholangiopancreatography MRI 08/20/18 00:00 CONCLUSION: 1. Expected postoperative features of cholecystectomy with ill-defined trace fluid in the surgical bed but no focal drainable fluid collection. Patient was noted to have a small bile leak on HIDA scan. 2. Mildly prominent common bile duct measuring up to 8 mm without intrahepatic ductal dilatation. No focal CBD defect. GI Procedure 08/22/18 00:00 CONCLUSION: ERCP as above. Chest X-Ray 08/22/18 17:46 CONCLUSION: Mild basilar atelectasis right greater than left. No evidence of pneumothorax or rib fracture Assessment and Plan (1) Acute cholecystitis: Code(s): K81.0 - Acute cholecystitis Status: Acute (2) Hypertension: Code(s): I10 - Essential (primary) hypertension Status: Acute (3) Anxiety: Code(s): F41.9 - Anxiety disorder, unspecified Status: Acute (4) Acute gangrenous cholecystitis: Code(s): K81.0 - Acute cholecystitis Status: Acute (5) Sepsis: Code(s): A41.9 - Sepsis, unspecified organism Status: Acute 57-year-old male admitted secondary to acute abdominal pain and sepsis status post cholecystectomy. Status post cholecystectomy Biliary drain obstruction Abdomen infection Sepsis Continue Vancomycin, Zosyn and Probiotics. -Status post MRCP found small bile leak on HIDA scan, Mildly prominent common bile duct measuring up to 8 mm without intrahepatic ductal dilatation. No focal CBD defect, recommended by GI specialist for ERCP, to continue antibiotics, due to Sepsis, suspected biliary infection post Op Cholecystectomy. -s/p ERCP with stent placement 08/22. -Status post LAURI drain removal 08/25/2018 -Continue IV antibiotic, vancomycin and Zosyn -Follow up with GI in 8 weeks for stent removal . -Abdominal distention and tenderness, repeat KUB no evidence of Ileus now tolerating diet. -pain management with bowel regimen--- 08/29---patient has been requiring IV Dilaudid 2mg q3h and PO Percocet 10mg q4h. Will switch to PO Dilaudid 4mg q4h and monitor response if he responds appropriately, we can plan for discharge. Acute pancreatitis--resolved. Likely s/p ERCP. Lipase over 4000, now normal. LFTs unremarkable. -continue IVFs. -pain control and antiemetics as needed. -now on cardiac diet. -Cleared with GI to follow up as an outpatient for stent removal in 8 weeks Hypertension likely Exacerbated by pain. -pain control. -Continue increased dose of lisinopril. -Continue clonidine prn. -Blood pressure improving, monitor blood pressure, adjust medication as necessary Tobacco dependence -Counseled patient on smoking cessation Constipation - Lactulose, senna/docusate -Give milk of magnesia prn -KUB negative ileus -improving Anxiety/Depression -acute on chronic -continue seroquel and xanax prn -monitor mental status Anemia Hemoglobin stable at this time. -follow CBC DVT prophylaxis: SCDs Code Status: full code Progress Note: Quality VTE Deep Vein Thrombosis/Pulmonary Embolism Present on Admission: No _ (1) Sepsis Qualifiers: Sepsis type: sepsis due to unspecified organism Qualified Code(s): A41.9 - Sepsis, unspecified organism (2) Hypertension Qualifiers: Hypertension type:
[2018-08-30] MEDS: Vancomycin Inj 1,750 MG in Sodium Chlor 0.9% Inj 500 ML IV.SIG SCH ×2 (00:24→13:07)
[2018-08-30] MEDS: Sod Chloride 0.9% Inj 1,000 ML IV.CONT SCH ×3 (01:00→20:35)
[2018-08-30] MEDS: Piperacil/Tazo 3.375 GM Premix 50 ML IV.SIG SCH ×3 (04:01→20:35)
[2018-08-30 08:29] LABS: Anion Gap 7 meq/L (5-15); Aspartate Aminotransferase 9 U/L (15-37); Blood Urea Nitrogen 6 mg/dL (7-18); Calcium 8.6 mg/dL (8.5-10.1); Carbon Dioxide 29.9 meq/L (21.0-32.0); Chloride 103 meq/L (98-107); Glomerular Filtration Rate Greater Than 89 mL/min (>89); Glucose,Random 144 mg/dL (74-106); Potassium 3.8 meq/L (3.5-5.1); Sodium 140 meq/L (136-145)
[2018-08-30 08:32] LABS: Alanine Aminotransferase 14 U/L (12-78); Alkaline Phosphatase 78 U/L (45-117); Total Protein 6.8 g/dL (6.4-8.2)
[2018-08-30] MEDS: Lisinopril 20 MG Tablet PO SCH (09:57)
[2018-08-30] MEDS: lamoTRIgine 100 MG Tablet PO SCH (09:57)
[2018-08-30] MEDS: Senna/Docusate Sodium 8.6/50 MG Tablet PO SCH ×2 (09:59→20:36)
[2018-08-30] MEDS: Sodium Chloride 0.9% 2 ML Flush BID IV.FLUSH SCH ×3 (09:59→20:36)
[2018-08-30] MEDS ORDERED: HYDROmorphone PF Inj 2 MG/ML Vial IV.PUSH ONE (13:00)
--- NOTE | 2018-08-30 15:06 | P.PNIM ---
Physical Exam Vital signs: Last Vital Signs Temp 98.0 F 08/30/18 12:00 Pulse 80 08/30/18 12:00 Resp 18 08/30/18 12:00 BP 179/104 H 08/30/18 12:00 Pulse Ox 91 L 08/30/18 12:00 Intake & Output 08/28/18 08/29/18 08/30/18 08/31/18 06:59 06:59 06:59 06:59 Intake Total 4545.0 / 4545.0 5517.5 / 5517.5 2665.0 / 2665.0 1000 / 1000 Output Total 700 / 700 Balance 3845.0 / 3845.0 5517.5 / 5517.5 2665.0 / 2665.0 1000 / 1000 Weight 148.5 kg 145.7 kg Narrative: GENERAL: obese middle aged man, in no apparent distress. HEENT:not pale,anicteric CARDIOVASCULAR: Regular rate and rhythm without murmurs, gallops, or rubs. RESPIRATORY: Clear to auscultation. Breath sounds equal bilaterally. No wheezes , rales, or rhonchi. GASTROINTESTINAL: Obese, healing scar on RUQ(previous cholecystostomy tube site) ,abdomen soft,mild generalized tenderness, Normal active bowel sounds. MUSCULOSKELETAL: Extremities without clubbing, cyanosis, or edema. NEURO: Alert & Oriented x4 to person, place, time, situation. Moves all ext x4 Results Labs CBC & Chem 7: 08/30/18 20:30 08/31/18 04:47 Labs: Microbiology 08/25/18 16:35 Blood - Peripheral Aerobic Blood Culture - Final No growth in 5 days 08/25/18 16:35 Blood - Peripheral Anaerobic Blood Culture - Final No growth in 5 days 08/25/18 16:30 Blood - Peripheral Aerobic Blood Culture - Final No growth in 5 days 08/25/18 16:30 Blood - Peripheral Anaerobic Blood Culture - Final No growth in 5 days Procedures Procedures: MRCP 08/20/18 Abdomen/Pelvis CT 08/19/18 13:11 CONCLUSION: 1. Expected postoperative features of cholecystectomy with surgical drain in the cholecystectomy bed. No focal drainable fluid collections or significant free fluid. 2. Diffusely decreased hepatic attenuation consistent with hepatic steatosis versus medical liver disease. 3. Nondistended fluid-filled loops of proximal small bowel which may reflect developing mild adynamic ileus. Cholangiopancreatography MRI 08/20/18 00:00 CONCLUSION: 1. Expected postoperative features of cholecystectomy with ill-defined trace fluid in the surgical bed but no focal drainable fluid collection. Patient was noted to have a small bile leak on HIDA scan. 2. Mildly prominent common bile duct measuring up to 8 mm without intrahepatic ductal dilatation. No focal CBD defect. GI Procedure 08/22/18 00:00 CONCLUSION: ERCP as above. Chest X-Ray 08/22/18 17:46 CONCLUSION: Mild basilar atelectasis right greater than left. No evidence of pneumothorax or rib fracture Assessment and Plan (1) Sepsis: Code(s): A41.9 - Sepsis, unspecified organism Status: Acute 57-year-old male admitted secondary to acute abdominal pain and sepsis status post cholecystectomy. Status post cholecystectomy Biliary drain obstruction Abdomen infection Sepsis Continue Vancomycin, Zosyn and Probiotics. -Status post MRCP found small bile leak on HIDA scan, Mildly prominent common bile duct measuring up to 8 mm without intrahepatic ductal dilatation. No focal CBD defect, recommended by GI specialist for ERCP, to continue antibiotics, due to Sepsis, suspected biliary infection post Op Cholecystectomy. -s/p ERCP with stent placement 08/22. -Status post LAURI drain removal 08/25/2018 -Continue IV antibiotic, vancomycin and Zosyn--can stop abx on discharge. -Follow up with GI in 8 weeks for stent removal . -Abdominal distention and tenderness, repeat KUB no evidence of Ileus now tolerating diet. -pain management with bowel regimen--- 08/30---patient reports increased abdominal pain when he takes solid food, but was ok when on full liquids. He was switched to oral dilaudid yesterday, reports his pain is uncontrolled. Will change him to soft diet and monitor response. Acute pancreatitis--resolved. Likely s/p ERCP. Lipase over 4000, now normal. LFTs unremarkable. -continue IVFs. -pain control and antiemetics as needed. -now on cardiac diet. -Cleared with GI to follow up as an outpatient for stent removal in 8 weeks Hypertension likely Exacerbated by pain. -pain control. -Continue increased dose of lisinopril. -Continue clonidine prn. -Blood pressure improving, monitor blood pressure, adjust medication as necessary Tobacco dependence -Counseled patient on smoking cessation Constipation - Lactulose, senna/docusate -Give milk of amrita prn -KUB negative ileus -improving Anxiety/Depression -acute on chronic -continue seroquel and xanax prn -monitor mental status Anemia Hemoglobin stable at this time. -follow CBC DVT prophylaxis: SCDs Code Status: full code Progress Note: Quality VTE Deep Vein Thrombosis/Pulmonary Embolism Present on Admission: No _ (1) Sepsis Qualifiers: Sepsis type: sepsis due to unspecified organism Qualified Code(s): A41.9 - Sepsis, unspecified organism
[2018-08-30 21:17] LABS: Baso # (Auto) 0.1 th/mm3 (0.0-0.2); Baso % (Auto) 0.7 % (0.0-2.0); Eos # (Auto) 0.4 th/mm3 (0.0-0.4); Eos % (Auto) 4.9 % (0.0-4.0); Hematocrit 31.9 % (39.0-51.0); Hemoglobin 10.1 gm/dL (13.0-17.0); Lymph # (Auto) 1.6 th/mm3 (1.0-4.8); Lymph % (Auto) 17.8 % (9.0-44.0); Mean Corpuscular HGB Conc 31.6 % (32.0-36.0); Mean Corpuscular Hemoglobin 25.4 pg (27.0-34.0); Mean Corpuscular Volume 80.4 fL (80.0-100.0); Mean Platelet Volume 6.6 fL (7.0-11.0); Mono # (Auto) 0.7 th/mm3 (0.0-0.9); Mono % (Auto) 7.3 % (0.0-8.0); Neut # (Auto) 6.2 th/mm3 (1.8-7.7); Neut % (Auto) 69.3 % (16.0-70.0); Platelet Count 488 th/mm3 (150-450); Red Blood Count 3.97 mil/mm3 (4.50-5.90); Red Cell Distribution Width 16.1 % (11.6-17.2)
[2018-08-31] MEDS: Vancomycin Inj 1,750 MG in Sodium Chlor 0.9% Inj 500 ML IV.SIG SCH ×2 (00:10→12:30)
[2018-08-31] MEDS: Piperacil/Tazo 3.375 GM Premix 50 ML IV.SIG SCH ×2 (04:04→15:33)
[2018-08-31] MEDS: Sod Chloride 0.9% Inj 1,000 ML IV.CONT SCH ×2 (05:20→15:26)
[2018-08-31 06:59] LABS: Glomerular Filtration Rate Greater Than 89 mL/min (>89)
[2018-08-31 09:19] VITALS: RESP 19; O2SAT 95
[2018-08-31] MEDS: Lisinopril 20 MG Tablet PO SCH (09:20)
[2018-08-31] MEDS: lamoTRIgine 100 MG Tablet PO SCH (09:21)
[2018-08-31] MEDS: Senna/Docusate Sodium 8.6/50 MG Tablet PO SCH (09:21)
[2018-08-31] MEDS: Sodium Chloride 0.9% 2 ML Flush BID IV.FLUSH SCH (09:22)
[2018-08-31] MEDS ORDERED: Pharmacy Ordered Lab Info OTHER ONE (11:45)
[2018-08-31] MEDS ORDERED: amLODIPine 5 MG Tablet PO SCH (12:15)
--- NOTE | 2018-08-31 12:21 | P.DCO ---
Diagnosis (1) Sepsis: Status: Acute Home Health Nursing Order: Medical education and Signs/symptoms of disease process Case Management Consult Case Management Consult-Home Health: Yes I have seen patient John Paul Kim on 08/31/18. My clinical findings support the need for the requested home health care services because:post sepsis follow up, monitor progression,medication management I certify that my clinical findings support that this patient is homebound because: _ (1) Sepsis Qualifiers: Sepsis type: sepsis due to unspecified organism Qualified Code(s): A41.9 - Sepsis, unspecified organism
--- NOTE | 2018-08-31 12:49 | P.DS ---
DS: Providers Date of admission: 08/19/18 15:48 Primary care physician: UNKNOWN Consults: 08/19/18 16:44 Consult to Gastroenterology Routine Consulting Provider: Mendoza Ruiz Reason for Consultation: Abdominal Pain and Sepsis, suspect biliary infection (post op ender) - may need ERCP stent placement during this admit Notified:: Service Spoke with:: Elise Date Notified:: 08/19/18 Time Notified:: 17:17 Comments:: Preferred Survey Supervisor: Dr. Chau (can't find in system) Ordering Provider: JIMMY Consult to General Surgery Routine Consulting Provider: Bucky Fernández Preferred Survey Supervisor:: Bucky Fernández Patient known to:: Bucky Fernández Reason for Consultation: Abdominal Pain and Sepsis, suspect biliary infection (post op ender) Notified:: Service Spoke with:: Elise Date Notified:: 08/19/18 Time Notified:: 17:18 Ordering Provider: JIMMY 08/20/18 14:02 HUB Only Consult Order Routine Consulting Provider: Jhon Ferreira Brief History from admission: Mr. Kim is a 57-year-old male. He has a recent history of cholecystitis which was complex cholecystitis and required surgery. Surgery was performed on 07/26/2018. At that time he had cholecystectomy and placement of drain. He discharged with drain in place. He was also discharged on Augmentin and he says he has been on Augmentin throughout course of his recovery including this morning. In the past 48 hours he has developed right-sided abdominal pain and fevers, chills, and diaphoresis episodes. With leukocytosis and tachycardia in addition to biliary infection, this patient meets sepsis criteria at time of admit. No other complaints when seen. No shortness of breath or chest pain. He also reports that he has had cessation of output from his drain. DS: Diagnosis Discharge Diagnosis (1) Sepsis: Status: Acute DS: Summary Patient was admitted to the hospital for management of sepsis suspected to be due to biliary infection post Cholecystectomy. He was started on IV Vanc/ Zosyn. His pain was controlled with narcotic medication.MRCP found small bile leak and mildly prominent common bile duct measuring up to 8 mm without intrahepatic ductal dilatation.GI specialist evaluated him and performed ERCP on 08/22.He developed post ERCP pancreatitis with lipase upto 4000, but this resolved with supportive care,lipase and liver enzymes have normalized. He was initially on bowel rest, diet was gradually advanced as tolerated.He was on a bowel regimen. Stent is to be removed in 8 weeks. He was seen by the surgeon and LAURI drain was removed on 08/25/18. Patient is tolerating soft foods on discharge. Patient will need to follow up with GI in 8 weeks for removal of stent. With regard to blood pressure, it was noted to be high during his hospitalization, Lisinopril dose was increased to 40 mg and he was started on 5 mg of Amlodipine as well. Patient will need to follow up with his PCP within a week for re-evaluation. Time Spent with Patient Total time spent providing and/or coordinating discharge services: Quality: VTE Deep Vein Thrombosis/Pulmonary Embolism Present on Admission: No Exam Narrative Exam Narrative: GENERAL: obese middle aged man, in no apparent distress. HEENT:not pale,anicteric CARDIOVASCULAR: Regular rate and rhythm without murmurs, gallops, or rubs. RESPIRATORY: Clear to auscultation. Breath sounds equal bilaterally. No wheezes , rales, or rhonchi. GASTROINTESTINAL: Obese, healing scar on RUQ(previous cholecystostomy tube site) ,abdomen soft,mild generalized tenderness, Normal active bowel sounds. MUSCULOSKELETAL: Extremities without clubbing, cyanosis, or edema. NEURO: Alert & Oriented x4 to person, place, time, situation. Moves all ext x4 Results Procedures completed during hospitalization: MRCP 08/20/18 Abdomen/Pelvis CT 08/19/18 13:11 CONCLUSION: 1. Expected postoperative features of cholecystectomy with surgical drain in the cholecystectomy bed. No focal drainable fluid collections or significant free fluid. 2. Diffusely decreased hepatic attenuation consistent with hepatic steatosis versus medical liver disease. 3. Nondistended fluid-filled loops of proximal small bowel which may reflect developing mild adynamic ileus. Cholangiopancreatography MRI 08/20/18 00:00 CONCLUSION: 1. Expected postoperative features of cholecystectomy with ill-defined trace fluid in the surgical bed but no focal drainable fluid collection. Patient was noted to have a small bile leak on HIDA scan. 2. Mildly prominent common bile duct measuring up to 8 mm without intrahepatic ductal dilatation. No focal CBD defect. GI Procedure 08/22/18 00:00 CONCLUSION: ERCP as above. Chest X-Ray 08/22/18 17:46 CONCLUSION: Mild basilar atelectasis right greater than left. No evidence of pneumothorax or rib fracture Labs on day of discharge: Labs from last 24 hours 08/31/18 08/31/18 08/30/18 11:40 04:47 20:30 WBC 9.0 RBC 3.97 L Hgb 10.1 L Hct 31.9 L MCV 80.4 MCH 25.4 L MCHC 31.6 L RDW 16.1 Plt Count 488 H D MPV 6.6 L Neut % (Auto) 69.3 Lymph % (Auto) 17.8 [place] % (Auto) 7.3 Eos % (Auto) 4.9 H Baso % (Auto) 0.7 Neut # (Auto) 6.2 Lymph # (Auto) 1.6 [place] # (Auto) 0.7 Eos # (Auto) 0.4 Baso # (Auto) 0.1 WBC Differential . Differential Comment Auto diff final Creatinine 0.74 Estimated GFR Greater than 89 POC Glucose Vancomycin Trough Pending 08/30/18 18:46 WBC RBC Hgb Hct MCV MCH MCHC RDW Plt Count MPV Neut % (Auto) Lymph % (Auto) [place] % (Auto) Eos % (Auto) Baso % (Auto) Neut # (Auto) Lymph # (Auto) [place] # (Auto) Eos # (Auto) Baso # (Auto) WBC Differential Differential Comment Creatinine Estimated GFR POC Glucose 146 H Vancomycin Trough Impressions ITS Impressions Abdomen/Pelvis CT 08/19/18 13:11 CONCLUSION: 1. Expected postoperative features of cholecystectomy with surgical drain in the cholecystectomy bed. No focal drainable fluid collections or significant free fluid. 2. Diffusely decreased hepatic attenuation consistent with hepatic steatosis versus medical liver disease. 3. Nondistended fluid-filled loops of proximal small bowel which may reflect developing mild adynamic ileus. Cholangiopancreatography MRI 08/20/18 00:00 CONCLUSION: 1. Expected postoperative features of cholecystectomy with ill-defined trace fluid in the surgical bed but no focal drainable fluid collection. Patient was noted to have a small bile leak on HIDA scan. 2. Mildly prominent common bile duct measuring up to 8 mm without intrahepatic ductal dilatation. No focal CBD defect. GI Procedure 08/22/18 00:00 CONCLUSION: ERCP as above. Chest X-Ray 08/25/18 00:00 CONCLUSION: Little change from prior exam Abdomen X-Ray 08/26/18 00:00 CONCLUSION: 1. No evidence of bowel obstruction or ileus. 2. Degenerative changes and scoliosis of the thoracolumbar spine. 3. Degenerative changes involving the left hip joint. Discharge Plan Discharge Disposition Patient Disposition: W/Home Health Service Discharge Condition Condition: Stable Discharge Order Discharge Orders: Discharge Order (Routine); Ordered 08/31/18 Ordered By: Karen Guzman Discharge Details Anticipated Discharge Date: 08/31/18 Physicians Team ED Provider: Svitlana Jack Primary Care Provider: UNKNOWN, Attending Provider: Karen Guzman Other Providers: Mendoza Ruiz ; Bucky Fernández ; Jhon Ferreira Rxs /Orders / Referrals /Forms Prescriptions: New lisinopril 20 mg Tablet 40 mg PO DAILY Qty: 60 RF: 0 amlodipine [Norvasc] 5 mg Tablet 5 mg PO DAILY Qty: 30 RF: 0 magnesium hydroxide [Milk of Magnesia] 400 mg/5 mL Suspension 30 ml PO Q12H PRN (Reason: Mild Constipation) Qty: 300 RF: 0 pantoprazole 40 mg Tablet,Delayed Release (Dr/Ec) 40 mg PO DAILY Qty: 30 RF: 0 hydromorphone 4 mg Tablet 4 mg PO Q4H PRN (Reason: Acute Pain 1-10) Qty: 20 RF: 0 Continue quetiapine [Seroquel] 200 mg Tablet 200 mg PO HS RF: 0 lamotrigine [Lamictal] 100 mg Tablet 100 mg PO DAILY RF: 0 alprazolam 1 mg tablet 1 mg PO BID PRN (Reason: Anxiety) RF: 0 Discontinued lisinopril 20 mg Tablet 20 mg PO DAILY RF: 0 oxycodone-acetaminophen 10-325 mg Tablet 1 tab PO Q4H PRN (Reason: acute post op pain exception ) Qty: 18 RF: 0 Referrals: Mendoza Ruiz MD [Physician] - See Instructions (post ERCP follow up in 8 weeks for removal of stent. ) UNKNOWN, [Primary Care Provider] - See Instructions Discharge Instructions Patient Printed Instructions: ERCP (Endoscopic Retrograde Cholangiopancreatography) (DC) Additional Instructions: You presented to the hospital with rt sided abdominal pain and reduced drainage from tube that had been placed after your gall bladder was removed. You also had fevers and chills. You were found to have an infection for which you were placed on intravenous antibiotics,pain medication and bowel rest. The surgeon removed the drain. GI doctors evaluated you, an ERCP procedure was done and stent placed. You diet was advanced accordingly as you improved. Your infection has subsided. Your blood pressure was high during your hospital stay, Lisinopril dose was increased and you have been started on another blood pressure medication-- Amlodipine, please take as prescribed. You will need to follow up with your primary care doctor within 1 week for re- evaluation. You will need to follow up with GI for removal of the stent in 8 weeks. Discharge Interventions Interventions: Discharge Planning - Case Management Last Done: 08/24/18 13:13 Status ED Status: Left Department
[2018-08-31] MEDS ORDERED: HYDROmorphone PF Inj 2 MG/ML Vial IV.PUSH ONE (13:00)
[2018-08-31 18:21] VITALS: BP 162/99; PULSE 80; TEMP 98.7
== END 2018-08-31 17:10 | disposition home health service (06) ==
LOC: NEPE 12:01 → NEDA 15:48 → N04 17:12
PROVIDERS: ADMIT Hospitalist; ATTEND Hospitalist
DX: N17.9 Acute kidney failure, unspecified; A41.9 Sepsis, unspecified organism; F41.9 Anxiety disorder, unspecified; Z90.49 Acquired absence of other specified parts of digestive tract; I10 Essential (primary) hypertension; F17.210 Nicotine dependence, cigarettes, uncomplicated; K85.90 Acute pancreatitis without necrosis or infection, unspecified; D64.9 Anemia, unspecified; F32.9 Major depressive disorder, single episode, unspecified; K59.00 Constipation, unspecified; Z68.41 Body mass index [BMI] 40.0-44.9, adult; E66.01 Morbid (severe) obesity due to excess calories; Y84.8 Other medical procedures as the cause of abnormal reaction of the patient, or of later complication, without mention of misadventure at the time of the procedure; T85.698A Other mechanical complication of other specified internal prosthetic devices, implants and grafts, initial encounter; Z98.890 Other specified postprocedural states